=== PATIENT | male | born 1965 | race Hispanic/Latino ===

== ENCOUNTER 2020-01-05 22:58 | Emergency (ER) | payer MEDICARE, OTHER ==
[2020-01-05] MEDS ORDERED: levETIRAcetam 1000 MG/100 ML PREMIX BAG ONE (23:00)
[2020-01-05] MEDS ORDERED: Lorazepam 2 MG/ML VIAL ONE (23:00)
[2020-01-05] MEDS ORDERED: Propofol 1,000 MG/100 ML VIAL IV ONE (23:07)
[2020-01-05] MEDS ORDERED: Succinylcholine Chloride 20 MG/ML 10 ml SYRINGE FS ONE (23:07)
[2020-01-05 23:15] LABS: #Lymphocytes 0.7 thou/uL (1.20-3.40); #Monocytes 1.3 thou/uL (0.11-0.59); #Neutrophils 15.9 thou/uL (1.40-6.50); %Basophils 0.1 % (0.0-1.0); %Eosinophils 0.1 % (0.0-10.0); %Lymphocytes 4.1 % (21.0-51.0); %Neutrophils 88.7 % (42.0-75.0); Hemoglobin 19.8 g/dL (14.0-18.0); Mean Corpuscular HGB CONC 34.6 g/dL (32.0-36.0); Mean Corpuscular Volume 92.3 fL (78.0-98.0); Mean Platelet Volume 7.4 fL (7.4-10.4); Platelet Count 323 thou/uL (130-400); RBC Distribution Width 12.4 % (11.5-14.5); Red Blood Cell (RBC) Count 6.19 mill/uL (4.70-6.10); White Blood Cell (WBC) Count 17.9 thou/uL (4.8-10.8)
[2020-01-05 23:36] LABS: ALT (SGPT) 151 U/L (8-55); AST (SGOT) 345 U/L (5-34); Albumin 5.1 g/dL (3.5-5.0); Alkaline Phosphatase 124 U/L (40-110); Anion Gap 30 mmol/L (10-20); BUN (Urea Nitrogen) 32 mg/dL (8.4-25.7); Bilirubin, Total 1.2 mg/dL (0.2-1.2); Calc. Creatinine Clearance 0 mL/min (70-130); Calcium 10.8 mg/dL (7.8-10.44); Carbon Dioxide 16 mmol/L (22-29); Chloride 99 mmol/L (98-107); Estimated GFR-MDRD 16; Globulin 4.3 g/dL (2.4-3.5); Glucose 94 mg/dL (70-105); Magnesium 2.6 mg/dL (1.6-2.6); Potassium 4.7 mmol/L (3.5-5.1); Protein, Total 9.4 g/dL (6.0-8.3); Sodium 140 mmol/L (136-145)
[2020-01-05 23:59] LABS: Actual Bicarbonate (HCO3a) 16.6 mEq/L (22-28); Analyzer IN Cardio ER; Base Excess (BEa) -7.7 mEq/L (-2.0 to +3.0); CO2 Tension 32.3 mmHg (35.0-45.0); Calcium, Ionized 1.13 mmol/L (1.12-1.30); Carboxyhemoglobin (COHb) 0.2 gm% (0.0-3.0); Hemoglobin (Hb) 19.4 g/dL (14.0-18.0); O2 Tension (PaO2) 74.9 mmHg (80.0-100.0); Potassium - ABG Lab 4.81 mmol/L (3.70-5.30); pH, Arterial 7.33 (7.35-7.45)
[2020-01-06 00:07] LABS: ALV-art Gradient 241.225 (0-20); Puncture Site LRA
[2020-01-06 00:42] LABS: Bacteria/HPF 3+ HPF (None Seen); Bilirubin Negative (Negative); Blood, Urine 3+ (Negative); Clarity Extra Turbid (Clear); Glucose, Urine (Dipstick) Normal (Negative); Leukocyte Negative Leu/uL (Negative); Nitrite Negative (Negative); Protein, Urine (Dipstick) 200 mg/dL (Neg-Trace); Urobilinogen Normal mg/dL (Less than 2); WBC/HPF Greater than 50 HPF (0-3)
[2020-01-06] MEDS ORDERED: cefTRIAXone\\ROCEPHIN 2 GM VIAL ONE (00:50)
[2020-01-06] MEDS ORDERED: Vancomycin 1 GM/200 ML BAG ONE (00:50)
[2020-01-06] MEDS ORDERED: Acetaminophen 650 MG Suppository ONE (00:54)
[2020-01-06] MEDS ORDERED: Fentanyl 100 MCG/2 ML VIAL ONE (01:05)
[2020-01-06 01:35] LABS: CSF Source CSF; Clarity Clear (Clear); Tube # 1; Tube # 4
[2020-01-06 02:09] LABS: Color Of CSF Supernatant COLORLESS (Colorless); Tube # 2; Unspun CSF Color COLORLESS (Colorless)
[2020-01-06 02:24] LABS: CSF, Glucose 71 mg/dl (40-70); CSF, Protein 53 mg/dL (15-40)
--- NOTE | 2020-01-06 06:56 | RAD ---
PORTABLE CHEST: HISTORY: Seizures. COMPARISON: 05/14/2013. FINDINGS: Lung terry appear clear. No infiltrate or vascular congestion. Heart and mediastinum unremarkable. ET tube has tip above dee. An NG Tube is directed into the left mainstem bronchus. IMPRESSION: 1. Nasogastric tube directed into the left mainstem bronchus. 2. No acute lung process. Findings related to Dr. Childress at the time of dictation. CODE CR POS: KATHY
--- NOTE | 2020-01-06 06:59 | CT ---
CT HEAD WITHOUT CONTRAST: INDICATION: Seizures. COMPARISON: Comparison is made to head CT of 05/25/2013. FINDINGS: There is a focal lucency in the left cerebellum which his new from prior exam suggesting a focal cere bellar infarct which appears remote. Mild cortical volume loss. The extraaxial CSF seen on the prior exam is no longer present. There ar e chronic ischemic white matter changes in both cerebral hemispheres which are moderate and prominent for age. There is evidence of old infarct with encephalomalacia involving the left temporal lobe. There is also associated encephalomalacia in the inferior left frontal lobe. There is no evidence of acute mass, hemorrhage, or cortical infarct. Sinuses appear clear. IMPRESSION: There are chronic ischemic changes. 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 Mild ex vacuo dilatation of the left lateral ventricle du e to these old infarcts. No acute process apparent. POS: AGW
--- NOTE | 2020-01-06 07:00 | RAD ---
SUPINE ABDOMEN: INDICATION: Assess NG tube placement. FINDINGS/IMPRESSION: NG tube passes through the EG junction and resides within the gastric fundal region. Nonspecific bow el gas pattern is partially visualized. The lungs appear clear. POS: AGW
[2020-01-06 10:04] LABS: SARS-CoV-2 MS2 Positive; SARS-CoV-2 N Gene Negative; SARS-CoV-2 S Gene Negative; SARS-CoV-2 orf1ab Negative
--- NOTE | 2020-01-07 14:57 | EKG ---
Test Reason : Blood Pressure : / mmHG Vent. Rate : 128 BPM Atrial Rate : 128 BPM P-R Int : 122 ms QRS Dur : 074 ms QT Int : 314 ms P-R-T Axes : 049 022 046 degrees QTc Int : 458 ms Sinus tachycardia No STEMI Otherwise normal ECG Confirmed by MARCO HOOPER M.D. ([id number]), material expeditor YSABEL DYSON ([id number] on 01/07/2020 2:57:03 PM Referred By: Confirmed By:MARCO HOOPER M.D.
== END 2020-01-06 03:32 | disposition short-term general hospital (02) ==
LOC: ERS 22:58
DX: A41.9 Sepsis, unspecified organism (principal); N17.9 Acute kidney failure, unspecified; G40.801 Other epilepsy, not intractable, with status epilepticus; I10 Essential (primary) hypertension; Z20.828 Contact with and (suspected) exposure to other viral communicable diseases; Z87.891 Personal history of nicotine dependence; Z79.899 Other long term (current) drug therapy
CPT/HCPCS: 31500; 51702; 62270; 70450; 71045; 74018; 80053; 82805; 82945; 83605; 83735; 84157; 85025; 87040; 87070; 87077; 87149 ×2; 87186; 87205; 89051; 93005; 94002; 96361; 96365; 96366; 96367; 96375; 99291; 99292; U0002; 36415; 81003; 81015; 87635; J0696; J1953; J2060; J2704; J3010; J3370; U0003

== ENCOUNTER 2020-07-24 06:28 | Inpatient (IN) | payer MEDICARE, MEDICAID ==
[2020-07-24] MEDS ORDERED: Succinylcholine 200 MG/10 ml SYRINGE FS ONE (06:31)
[2020-07-24] MEDS ORDERED: Ketamine 50 MG/ML (10ML VIAL) ONE (06:47)
[2020-07-24] MEDS ORDERED: fentaNYL Citrate/PF 2,000 MCG in Sodium Chloride 0.9% 60 ML IV SCH (07:00)
[2020-07-24] MEDS ORDERED: Fentanyl 100 MCG/2 ML VIAL ONE (07:07)
[2020-07-24] MEDS ORDERED: Norepinephrine 4 MG/4 ML VIAL ONE ×3 (07:26→11:24)
[2020-07-24] MEDS ORDERED: Norepinephrine 8 MG/0.9% NS 250 ML IVPB SCH (07:30)
[2020-07-24] MEDS ORDERED: Vancomycin 1 GM/200 ML BAG ONE (07:34)
[2020-07-24] MEDS ORDERED: Cefepime 2 GM VIAL ONE (07:34)
[2020-07-24 07:39] LABS: #Eosinphils 0.1 thou/uL (0.0-0.7); #Lymphocytes 1.2 thou/uL (1.20-3.40); #Monocytes 1.6 thou/uL (0.11-0.59); #Neutrophils 14.4 thou/uL (1.40-6.50); %Basophils 0.2 % (0.0-1.0); %Eosinophils 0.3 % (0.0-10.0); %Lymphocytes 6.8 % (21.0-51.0); %Monocytes 9.1 % (0.0-10.0); %Neutrophils 83.6 % (42.0-75.0); Hemoglobin 16.5 g/dL (14.0-18.0); Mean Corpuscular HGB CONC 33.2 g/dL (32.0-36.0); Mean Corpuscular Hemoglobin 29.8 pg (27.0-31.0); Mean Corpuscular Volume 89.7 fL (78.0-98.0); Mean Platelet Volume 7.7 fL (7.4-10.4); Platelet Count 201 thou/uL (130-400); Red Blood Cell (RBC) Count 5.55 mill/uL (4.70-6.10); White Blood Cell (WBC) Count 17.2 thou/uL (4.8-10.8)
[2020-07-24 07:46] LABS: Bilirubin Negative (Negative); Blood, Urine Negative (Negative); Clarity Clear (Clear); Glucose, Urine (Dipstick) Normal (Negative); Ketone, Urine Negative (Negative); Leukocyte Negative Leu/uL (Negative); Nitrite Negative (Negative); Protein, Urine (Dipstick) Negative (Neg-Trace); Specific Gravity, Urine 1.011 (1.002-1.036); Urobilinogen Normal mg/dL (Less than 2)
[2020-07-24] MEDS ORDERED: EPINEPHrine 1 MG/ML AMP ONE (07:47)
[2020-07-24] MEDS ORDERED: EPINEPHrine 1 MG/10 ML Abboject SYRINGE ONE (07:47)
[2020-07-24] MEDS ORDERED: Hydrocortisone Sod Succ/PF 100 mg/2 ml Vial ONE (07:52)
[2020-07-24 07:57] LABS: Actual Bicarbonate (HCO3a) 14.4 mEq/L (22-28); Analyzer IN Cardio ER; Base Excess (BEa) -10.6 mEq/L (-2.0 to +3.0); CO2 Tension 30.2 mmHg (35.0-45.0); Carboxyhemoglobin (COHb) 0.3 gm% (0.0-3.0); Hemoglobin (Hb) 15.4 g/dL (14.0-18.0); O2 Tension (PaO2), arterial 83.3 mmHg (80.0-100.0); Potassium - ABG Lab 3.05 mmol/L (3.70-5.30)
--- NOTE | 2020-07-24 07:57 | RAD ---
Exam: Chest one view HISTORY:Central line placed. COVID positive patient. Comparison: 07/24/2020 FINDINGS: Lines and tubes: Redemonstration of endotracheal tube and nasogastric tube. Interval placement of a l eft-sided subclavian vascular catheter. Distal tip projects over the expected region of the superior vena cava. Cardiac silhouette: Normal Aorta: Atherosclerosis Pulmonary vessels: Normal Costophrenic angles: Clear LUNGS: Persistent diminished lung volumes. Persistent bilateral perihilar infiltrates. Pneumothorax: None Osseous abnormalities: Redemonstration of a cervical fusion plate IMPRESSION: 1. Redemonstration of endotracheal tube and nasogastric tube. Endotracheal tube terminates approximat delaney 2 cm above the dee. 2. Interval placement of a left-sided subclavian vascular catheter. No pneumothorax 3. Persistent diminished lung volumes with bilateral perihilar infiltrates
[2020-07-24 07:59] LABS: Puncture Site RRA
[2020-07-24 08:09] LABS: ALT (SGPT) 62 U/L (8-55); AST (SGOT) 289 U/L (5-34); Albumin 4.3 g/dL (3.5-5.0); Alkaline Phosphatase 117 U/L (40-110); Anion Gap 24 mmol/L (10-20); BUN (Urea Nitrogen) 25 mg/dL (8.4-25.7); Bilirubin, Total 0.3 mg/dL (0.2-1.2); Calc. Creatinine Clearance 0 mL/min (70-130); Calcium 8.8 mg/dL (7.8-10.44); Carbon Dioxide 17 mmol/L (22-29); Chloride 98 mmol/L (98-107); Estimated GFR-MDRD 21; Globulin 3.9 g/dL (2.4-3.5); Glucose 90 mg/dL (70-105); Potassium 3.5 mmol/L (3.5-5.1); Protein, Total 8.2 g/dL (6.0-8.3); Sodium 135 mmol/L (136-145)
[2020-07-24] MEDS ORDERED: Electrolyte Replacement Protoc 1 EACH EACH IVPB SCH (08:09)
[2020-07-24] MEDS ORDERED: Norepinephrine 8 MG/0.9% NS 250 ML IVPB PRN (08:09)
[2020-07-24] MEDS ORDERED: Ventilator Sedation Protocol 1 EACH FS SCH (08:15)
[2020-07-24] MEDS: Sodium Chloride 0.9% 1,000 ML IV SCH ×2 (08:30→20:22)
[2020-07-24 08:46] LABS: CKMB 120.8 ng/mL (0-6.6)
[2020-07-24] MEDS ORDERED: Vancomycin 1 GM in Premix Bag 1 BAG IVPB SCH (09:00)
[2020-07-24] MEDS ORDERED: Cefepime 2 GM in Sodium Chloride 0.9% 100 ML IVPB SCH (09:00)
[2020-07-24] MEDS ORDERED: Heparin 10,000 UNITS/ 10 ML VIAL ONE ×2 (09:05→13:27)
--- NOTE | 2020-07-24 09:09 | RAD ---
CHEST 1 VIEW: Date: 07/24/2020 INDICATION: History of COVID-positive disease and intubation. COMPARISON: Prior exam dated 01/05/2020. FINDINGS: The patient is intubated with gastric catheter placement. No acute air space opacity is evident. [place] catheter has been repositioned to extend below the left hemidiaphragm and beyond the field of vie w. ACDF is unchanged. No pneumothorax s evident. IMPRESSION: 1. Repositioning of the gastric catheter. Now, gastric catheter projects below the left hemidiaphrag m and beyond the field of view in the region of the stomach. 2. ET tube tip seen 2.9 cm below the level of the dee. The lungs are clear. POS: BH
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
[2020-07-24] MEDS ORDERED: Propofol BOLUS 1,000 MG/100 ML VIAL IV PRN (09:15)
[2020-07-24] MEDS ORDERED: Propofol 1,000 MG/100 ML VIAL IV PRN (09:15)
[2020-07-24] MEDS ORDERED: Morphine 2 MG/ML VIAL SLOW IVP PRN (09:15)
[2020-07-24] MEDS ORDERED: Vancomycin HCl 1 GM in Sodium Chloride 0.9% 250 ML 250 ML IVPB SCH (09:15)
[2020-07-24] MEDS ORDERED: DISCONTINUE PREVIOUS NARCOTIC PAIN MEDICATIONS AND BENZODIAZEPINES FS SCH (09:15)
[2020-07-24] MEDS ORDERED: Fentanyl BOLUS 250 ML IVPB PRN (09:15)
[2020-07-24] MEDS ORDERED: Heparin 25,000 units/D5W 500 ML IVPB SCH (09:45)
[2020-07-24] MEDS ORDERED: Heparin 10,000 UNITS/ 10 ML VIAL SLOW IVP SCH ×2 (09:45→20:00)
[2020-07-24 10:12] LABS: Hemoglobin 15.6 g/dL (14.0-18.0); Platelet Count 155 thou/uL (130-400)
[2020-07-24 10:39] LABS: Lactic Acid 4.4 mmol/L (0.5-2.2)
[2020-07-24 11:26] LABS: Hep C IgG Ab Reflex HepC Qnt (NonReactive); Hep C Index 11.03 S/CO (0-0.79)
--- NOTE | 2020-07-24 11:55 | PDOC.EVN ---
Event Note - Event Note Event Note: Confirmed that the patient tested positive for Covid at the [facility] on Sunday, 5 days ago.
--- NOTE | 2020-07-24 12:00 | ULT ---
EXAM: Bilateral lower extremity venous ultrasound HISTORY: Elevated d-dimer. Respiratory failure. COVID positive patient. COMPARISON: 05/09/2013 TECHNIQUE: Multiplanar grayscale and color Doppler images were obtained in a bilateral lower extremit y venous ultrasound. Spectral analysis of the Doppler waveforms were performed. FINDINGS: The bilateral common femoral vein, profunda femoral veins, superficial femoral veins, and p opliteal veins are normal in appearance without visible thrombus. These vessels demonstrate normal compression, flow, and augmentation. The bilateral posterior tibial veins, profunda femoral veins and greater saphenous veins are patent w ithout evidence of DVT. IMPRESSION: No evidence of DVT in the left or right lower extremity.
[2020-07-24] MEDS ORDERED: Famotidine/PF 20 mg/2ml Vial ONE (13:21)
[2020-07-24] MEDS ORDERED: Heparin 25,000 units/D5W 500 ML ONE (13:27)
[2020-07-24] MEDS: Famotidine/PF 20 mg/2ml Vial SLOW IVP SCH (13:58)
[2020-07-24] MEDS: Norepinephrine 8 MG in Dextrose 5% in Water 242 ML IVPB PRN (17:58)
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
[2020-07-24] MEDS ORDERED: Heparin 25,000 units/D5W 500 ML IV SCH (20:00)
[2020-07-24] MEDS ORDERED: Cefepime 1 GM in Sodium Chloride 0.9% 100 ML IVPB SCH (21:00)
[2020-07-24 21:23] LABS: PTT Greater than 250.0 sec (22.9-36.1)
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
[2020-07-25 00:55] LABS: PTT 243.4 sec (22.9-36.1)
[2020-07-25] MEDS: Norepinephrine 8 MG in Dextrose 5% in Water 242 ML IVPB PRN ×2 (01:24→07:02)
[2020-07-25 03:44] LABS: PTT 118.4 sec (22.9-36.1)
[2020-07-25 03:47] LABS: Hemoglobin 15.8 g/dL (14.0-18.0); Mean Corpuscular HGB CONC 33.9 g/dL (32.0-36.0); Mean Corpuscular Hemoglobin 30.6 pg (27.0-31.0); Mean Corpuscular Volume 90.3 fL (78.0-98.0); Mean Platelet Volume 8.2 fL (7.4-10.4); Platelet Count 79 thou/uL (130-400); RBC Distribution Width 12.2 % (11.5-14.5); Red Blood Cell (RBC) Count 5.18 mill/uL (4.70-6.10); White Blood Cell (WBC) Count 10.8 thou/uL (4.8-10.8)
[2020-07-25 03:48] LABS: Band 33 % (5-11); Lymphocytes 10 % (21-51); MDiff Complete? YES; Monocytes 1 % (0-10); Neutrophil 56 % (42-75); Platelet Morphology Comment Appears Decreased
[2020-07-25 04:16] LABS: ALT (SGPT) 1326 U/L (8-55); AST (SGOT) 1542 U/L (5-34); Albumin 3.5 g/dL (3.5-5.0); Alkaline Phosphatase 106 U/L (40-110); Anion Gap 20 mmol/L (10-20); BUN (Urea Nitrogen) 31 mg/dL (8.4-25.7); Bilirubin, Total 1.1 mg/dL (0.2-1.2); Calc. Creatinine Clearance 57 mL/min (70-130); Calcium 7.4 mg/dL (7.8-10.44); Carbon Dioxide 19 mmol/L (22-29); Chloride 101 mmol/L (98-107); Estimated GFR-MDRD 46; Globulin 2.9 g/dL (2.4-3.5); Glucose 119 mg/dL (70-105); Potassium 3.3 mmol/L (3.5-5.1); Protein, Total 6.4 g/dL (6.0-8.3); Sodium 137 mmol/L (136-145)
[2020-07-25] MEDS: Sodium Chloride 0.9% 1,000 ML IV SCH (07:02)
[2020-07-25] MEDS ORDERED: FLU VACC QS2020-21(6MOS UP)/PF 60 MCG/0.5 ML SYRINGE IM ONE (09:00)
[2020-07-25] MEDS: Famotidine/PF 20 mg/2ml Vial SLOW IVP SCH (09:13)
[2020-07-25 11:02] LABS: PTT 159.1 sec (22.9-36.1)
--- NOTE | 2020-07-25 11:36 | PRG ---
DATE OF SERVICE: 07/25/2020 SUBJECTIVE: He continues to be on low-dose fentanyl for sedation and restlessness. Ventilator settings at this time include rate of 14, tidal volume 500, PEEP of 8, FiO2 of 50%. PHYSICAL EXAMINATION: VITAL SIGNS: Blood pressure 124/76, heart rate 75, saturation 100%, temperature 99.0. GENERAL: He is intubated and sedated. He does not respond to verbal stimuli. He has no JVD. LUNGS: Rhonchi. HEART: Regular rate and rhythm. There is no murmur. ABDOMEN: Soft. There is no organomegaly. EXTREMITIES: He has trace edema. LABORATORY AND DIAGNOSTIC DATA: There is no x-ray today. White count 10,500, down from 17,000 on admission, hemoglobin 15.8 with hematocrit of 46.8, and platelet count down to 79,000. It was 201 on admission. Differential includes 56 segs and 33 bands. He remains anticoagulated. Chemistries include sodium 137, potassium 3.3, chloride 101, CO2 is 19, BUN 31, creatinine 1.56, down from 3 upon admission. ALT and AST are both greater than 1300, have been only mildly elevated yesterday. This is probably secondary to passive congestion related to infection versus post NE. IMPRESSION: 1. Elevated troponin and CK-MB consistent with [id number] NE. He is on heparin protocol, but unfortunately developing thrombocytopenia discontinuation of that approach. 2. COVID pneumonia, receiving ventilatory support. PLAN: We will continue current therapies. Course is challenging because of his progressive elevation in liver tests, which are probably secondary to his NE and passive congestion. He is not tolerating heparin well with evolving thrombocytopenia and of course, this is all superimposed upon his chronic issues and then also upon acute COVID pneumonia. I am not optimistic that he is going to survive. At this point, we will continue current therapies, but highly suspect we will need to discontinue heparin. TIME SPENT: Critical care, 31 minutes. Job ID: [id number]
[2020-07-25] MEDS: Vancomycin HCl 1.25 GM in Sodium Chloride 0.9% 250 ML 250 ML IVPB SCH (12:24)
--- NOTE | 2020-07-25 14:15 | PDOC.CPN ---
- Subjective Date: 07/25/20 Time: 14:13 Interval history: Pt intubated, sedated. Notes reviewed on events over last 12 hours - Objective Allergies/Adverse Reactions: Allergies Allergy/AdvReac Type Severity Reaction Status Date / Time No Known Drug Allergies Allergy Unknown Verified 11/29/19 09:07 Visit Medications: Current Medications Famotidine (Famotidine/Pf 20 Mg/2ml Vial) 20 mg SLOW IVP DAILY ELYSE Last Admin: 07/25/20 09:13 Dose: 20 mg Documented by: Heparin Sodium (Porcine) (Heparin 10,000 Units/ 10 Ml Vial) 0 units SLOW IVP WILLCALL ELYSE Sodium Chloride (Normal Saline 0.9%) 1,000 mls @ 75 mls/hr IV .[id number] ELYSE Last Admin: 07/25/20 07:02 Dose: 1,000 mls Documented by: Fentanyl Citrate 2,000 mcg/ (Sodium Chloride) 100 mls @ 0 mls/hr IV INF ELYSE; Protocol Stop: 08/23/20 09:15 Fentanyl Citrate (Fentanyl Bolus) 250 mls @ 0 mls/hr IVPB PRN PRN PRN Reason: Breakthrough pain/agitation Stop: 08/23/20 09:15 Cefepime HCl 1 gm/ Sodium (Chloride) 100 mls @ 200 mls/hr IVPB .PENDING PT INFO/NEXT LABS ELYSE Norepinephrine Bitartrate 8 mg (/ Dextrose/Water) 250 mls @ 0 mls/hr IVPB INF PRN; Protocol PRN Reason: TO MAINTAIN MAP > 65 Last Admin: 07/25/20 07:02 Dose: 250 mls Documented by: Heparin Sodium/Dextrose (Heparin 25,000 Units/D5w) 500 mls @ 0 mls/hr IV INF ELYSE; Protocol Vasopressin 20 unit/Miscellaneous Medication 1 each/ Sodium Chloride 51 mls @ 0 mls/hr IV INF ELYSE; Protocol Last Admin: 07/25/20 05:56 Dose: 51 mls Documented by: Vancomycin HCl 1.25 gm/ Sodium (Chloride) 250 mls @ 166.667 mls/hr IVPB 1200 ELYSE Last Admin: 07/25/20 12:24 Dose: 250 mls Documented by: Lorazepam (Lorazepam 2 Mg/Ml Vial) 2 mg SLOW IVP Q1H PRN PRN Reason: Breakthrough agitation Stop: 08/23/20 09:15 Miscellaneous Medication (Pharmacy To Dose Vanc/Cefep) 1 each IVPB .VANC/CEFEP PRN PRN Reason: Pharmacy to dose Morphine Sulfate (Morphine 2 Mg/Ml Vial) 2 mg SLOW IVP Q1H PRN PRN Reason: Breakthrough Pain/Agitation Stop: 08/23/20 09:15 Discontinue Previous Narcotic Pain Medications And Benzodiazepines 1 each FS .ONE ELYSE Stop: 08/23/20 09:15 Propofol (Propofol 1,000 Mg/100 Ml Vial) 1,000 mg IV INF PRN; Protocol PRN Reason: TO ACHIEVE GOAL RASS Stop: 08/23/20 09:15 Propofol (Propofol Bolus 1,000 Mg/100 Ml Vial) 20 mg IV Q5MIN PRN PRN Reason: BREAKTHROUGH AGITATION Stop: 08/23/20 09:15 Sodium Chloride (Flush - Normal Saline 10 Ml Syringe) 10 ml IVF Q12HR ELYSE Last Admin: 07/25/20 09:13 Dose: 10 ml Documented by: Sodium Chloride (Flush - Normal Saline 10 Ml Syringe) 10 ml IVF PRN PRN PRN Reason: Saline Flush Vital Signs & Weight: Vital Signs Temp Pulse Resp BP Pulse Ox 07/25/20 14:00 17 07/25/20 12:00 99.1 F 17 07/25/20 10:36 74 07/25/20 10:00 17 07/25/20 08:00 18 07/25/20 07:55 70 07/25/20 07:05 100 07/25/20 06:00 19 07/25/20 04:00 19 07/25/20 03:42 66 118/76 Weight 170 lb 13.732 oz - Physical Exam General: other (PE deferred d/t covid (+)) - Labs Result Diagrams: 07/25/20 03:10 07/25/20 03:10 Troponin/CKMB CK-MB (CK-2) 120.8 ng/mL (0-6.6) H* 07/24/20 07:25 Troponin I 6.249 ng/mL (< 0.028) H* 07/24/20 07:25 - Assessment/Plan Assessment/Plan: NQWMI Cocvid (+) pneumonia CHI Platelet count dropped significantly over last 24 hours Agree with stopping heparin Unfortunately, based on covid (+), platelet count, CKMB and trop and liver ezymes his recent cardiac insult likely significant Prognosis appears poor overall Continue supportive care
--- NOTE | 2020-07-25 14:29 | PDOC.HOSPP ---
- Subjective Encounter Date: 07/25/20 Encounter Time: 08:00 Subjective: on vent, mild sedation awakens off sedation per staff - Objective Vital Signs & Weight: Vital Signs (12 hours) Temp Pulse Resp BP Pulse Ox 07/25/20 14:00 17 07/25/20 12:00 99.1 F 17 07/25/20 10:36 74 07/25/20 10:00 17 07/25/20 08:00 18 07/25/20 07:55 70 07/25/20 07:05 100 07/25/20 06:00 19 07/25/20 04:00 19 07/25/20 03:42 66 118/76 Weight Weight 170 lb 13.732 oz Most Recent Monitor Data Heart Rate from ECG 78 NIBP 120/73 NIBP BP-Mean 88 Respiration from ECG 18 SpO2 100 I&O: 07/24/20 07/25/20 07/26/20 06:59 06:59 06:59 Intake Total 2076.4 0 Output Total 5425 685 Balance -378.6 -685 Result Diagrams: 07/25/20 03:10 07/25/20 03:10 Hospitalist ROS - Medication Medications: Active Medications Generic Name Dose Route Start Last Admin Trade Name Freq PRN Reason Stop Dose Admin Famotidine 20 mg 07/24/20 09:00 07/25/20 09:13 Famotidine/Pf 20 Mg/2ml Vial SLOW IVP 20 mg DAILY ELYSE Administration Sodium Chloride 1,000 mls @ 75 mls/hr 07/24/20 08:15 07/25/20 07:02 Normal Saline 0.9% IV 1,000 mls .[id number] ELYSE Administration Norepinephrine Bitartrate 8 mg 250 mls @ 0 mls/hr 07/24/20 17:30 07/25/20 07:02 / Dextrose/Water IVPB 250 mls INF PRN Administration TO MAINTAIN MAP > 65 Protocol As Directed Vasopressin 20 unit/ 51 mls @ 0 mls/hr 07/24/20 18:00 07/25/20 05:56 Miscellaneous Medication 1 IV 51 mls each/ Sodium Chloride INF ELYSE Administration Protocol As Directed Vancomycin HCl 1.25 gm/ Sodium 250 mls @ 166.667 mls/hr 07/25/20 12:00 07/25/20 12:24 Chloride IVPB 250 mls 1200 ELYSE Administration Sodium Chloride 10 ml 07/24/20 21:00 07/25/20 09:13 Flush - Normal Saline 10 Ml Syringe IVF 10 ml Q12HR ELYSE Administration - Exam ENT: normocephalic atraumatic Neck: supple Heart: RRR Respiratory: normal chest expansion Gastrointestinal: non-distended Extremities: no cyanosis, no edema Neurological: cranial nerve grossly intact Hosp A/P (1) Acute respiratory failure with hypoxia Code(s): J96.01 - ACUTE RESPIRATORY FAILURE WITH HYPOXIA Status: Acute (2) NSTEMI (non-ST elevated myocardial infarction) Code(s): I21.4 - NON-ST ELEVATION (NSTEMI) MYOCARDIAL INFARCTION Status: Acute (3) COVID-19 virus infection Code(s): U07.1 - COVID-19 Status: Acute (4) Elevated LFTs Code(s): R79.89 - OTHER SPECIFIED ABNORMAL FINDINGS OF BLOOD CHEMISTRY Status: Acute (5) MINA (acute kidney injury) Code(s): N17.9 - ACUTE KIDNEY FAILURE, UNSPECIFIED Status: Acute (6) History of traumatic brain injury Code(s): Z87.820 - PERSONAL HISTORY OF TRAUMATIC BRAIN INJURY Status: Chronic (7) Hyperlipidemia Code(s): E78.5 - HYPERLIPIDEMIA, UNSPECIFIED Status: Chronic (8) Hypertension Code(s): I10 - ESSENTIAL (PRIMARY) HYPERTENSION Status: Chronic Qualifiers: Hypertension type: essential hypertension Qualified Code(s): I10 - Essential (primary) hypertension (9) Septic shock Code(s): A41.9 - SEPSIS, UNSPECIFIED ORGANISM; R65.21 - SEVERE SEPSIS WITH SEPTIC SHOCK Status: Suspected - Plan is on pressors (levophed and vasopressin), sbp around 110 cefepime, vanc, nebs will need echo for ef, ?cardiogenic shock in addition to sepsis d/w sister and POA over phone, she is aware of poor prognosis and the current treatment plan including lab work. off heparin drip due to progressive thrombocytopenia likely might have hep C, await full results not a candidate for remdesivir with grossly elevated lft's
[2020-07-25] MEDS: Lorazepam 2 MG/ML VIAL SLOW IVP PRN (16:28)
[2020-07-25] MEDS: fentaNYL Citrate/PF 2,000 MCG in Sodium Chloride 0.9% 60 ML IV SCH (16:37)
[2020-07-25] MEDS: Acetaminophen 325 MG TAB PO PRN (23:50)
[2020-07-26] MEDS: Sodium Chloride 0.9% 1,000 ML IV SCH ×2 (01:15→14:50)
[2020-07-26 04:22] LABS: Anion Gap 12 mmol/L (10-20); BUN (Urea Nitrogen) 33 mg/dL (8.4-25.7); Calc. Creatinine Clearance 66 mL/min (70-130); Calcium 7.8 mg/dL (7.8-10.44); Carbon Dioxide 25 mmol/L (22-29); Chloride 102 mmol/L (98-107); Estimated GFR-MDRD 54; Glucose 115 mg/dL (70-105); Potassium 3.9 mmol/L (3.5-5.1); Sodium 135 mmol/L (136-145)
[2020-07-26 04:44] LABS: Band 42 % (5-11); Hemoglobin 14.8 g/dL (14.0-18.0); Lymphocytes 3 % (21-51); MDiff Complete? YES; Mean Corpuscular HGB CONC 33.5 g/dL (32.0-36.0); Mean Corpuscular Hemoglobin 29.9 pg (27.0-31.0); Mean Corpuscular Volume 89.4 fL (78.0-98.0); Mean Platelet Volume 8.6 fL (7.4-10.4); Monocytes 1 % (0-10); Neutrophil 54 % (42-75); Platelet Count 71 thou/uL (130-400); Platelet Morphology Comment Appears Decreased; RBC Distribution Width 12.2 % (11.5-14.5); RBC Morphology Normal; Red Blood Cell (RBC) Count 4.94 mill/uL (4.70-6.10); White Blood Cell (WBC) Count 7.7 thou/uL (4.8-10.8)
[2020-07-26] MEDS: Acetaminophen 325 MG TAB PO PRN ×2 (05:44→11:26)
--- NOTE | 2020-07-26 08:08 | RAD ---
XR Chest 1 View Portable History: Ventilated patient Comparison: Radiograph 2 days prior Findings: Endotracheal tube tip in good position above the dee 3.2 cm. Left subclavian central heidi ous catheter tip projects over the inferior SVC. Enteric tube tip below diaphragm although out of field of view. Scarring atelectasis left lung base similar. Similar appearance right perihilar atelectasis. No pneum othorax. Impression: Similar examination of the chest without worsening lung aeration.
[2020-07-26 08:14] LABS: Albumin 3.4 g/dL (3.5-5.0); Alkaline Phosphatase 113 U/L (40-110); Bilirubin, Total 1.6 mg/dL (0.2-1.2); Protein, Total 6.2 g/dL (6.0-8.3)
[2020-07-26 08:27] LABS: ALT (SGPT) 6442 U/L (8-55)
[2020-07-26] MEDS: Cefepime 1 GM in Sodium Chloride 0.9% 100 ML IVPB SCH ×2 (08:32→20:43)
[2020-07-26] MEDS: Famotidine/PF 20 mg/2ml Vial SLOW IVP SCH (08:32)
[2020-07-26 09:17] LABS: AST (SGOT) Greater than 3500 U/L (5-34)
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
[2020-07-26] MEDS: Vancomycin HCl 1.25 GM in Sodium Chloride 0.9% 250 ML 250 ML IVPB SCH (11:20)
[2020-07-26] MEDS: methylPREDNISolone Sod Succ 40 MG VIAL IVP SCH ×2 (11:20→17:34)
--- NOTE | 2020-07-26 12:09 | ULT ---
Ultrasound of [facility] [place] upper quadrant: 07/26/2020 COMPARISON:None available HISTORY:Elevated liver function enzymes TECHNIQUE: Multiplanar grayscale sonographic imaging of [facility] [place] upper quadrant provided FINDINGS:The pancreas appears grossly unremarkable. Distal body and tail are partially obscured by corazon wel gas. No focal liver lesion is identified. The hepatic parenchyma is somewhat heterogeneous and echogenic, which may signify hepatic steatosis. The common bile duct measures 5 mm, within normal limits. No gallbladder wall thickening is seen. Small volume gallbladder sludge is suspected. No gallstones o r pericholecystic fluid. The right kidney measures 10.9 cm in craniocaudal dimension and demonstrates no evidence for stone, h ydronephrosis, or mass lesion. IMPRESSION:Gallbladder sludge. No gallstones, gallbladder wall thickening, or intrahepatic biliary di latation.
--- NOTE | 2020-07-26 13:12 | PRG ---
DATE OF SERVICE: 07/26/2020 SUBJECTIVE: No significant changes noted overnight. OBJECTIVE: VITAL SIGNS: 170/71, pulse 102, respirations 20. He is currently on norepinephrine in addition to vasopressin. Physical exam deferred due to COVID positive. PERTINENT LABORATORY DATA: Hemoglobin 14.8, hematocrit 44.2, creatinine 1.36, down from 1.56. AST, ALT of greater than 3500 and 6442. IMPRESSION: 1. COVID positive pneumonia. 2. Elevated CK-MB and troponin. 3. Respiratory failure. RECOMMENDATIONS: No significant changes noted overnight. Unfortunately, his AST, ALT continues to climb. This may be a reflection of RV or LV failure. At this point, proceeding with echo will not change current management. Continue with antibiotic therapy in addition to heparin as well as a Solu-Medrol. Continue on norepinephrine and vasopressin for pressor support. Prognosis appears poor. At this point, I have no further recommendations to add. The patient will re-consult if needed. We will follow peripherally. Job ID: [id number]
[2020-07-26 13:37] LABS: Hep C PCR-Quant 4170 IU/mL (.)
--- NOTE | 2020-07-26 14:35 | PDOC.HOSPP ---
- Subjective Encounter Date: 07/26/20 Encounter Time: 10:25 Subjective: on vent, wakes up off sedation per staff - Objective Vital Signs & Weight: Vital Signs (12 hours) Temp Pulse Resp BP Pulse Ox 07/26/20 14:00 16 07/26/20 12:00 16 07/26/20 11:26 101.4 F H 07/26/20 10:25 107 H 128/81 07/26/20 10:00 20 07/26/20 08:39 89 136/72 07/26/20 08:00 18 07/26/20 07:17 99 07/26/20 06:00 17 07/26/20 05:44 101.1 F H 07/26/20 04:00 20 07/26/20 03:08 95 Weight Admit Weight 186 lb Weight 186 lb 4.65 oz Most Recent Monitor Data Heart Rate from ECG 89 NIBP 116/73 NIBP BP-Mean 87 Respiration from ECG 19 SpO2 98 I&O: 07/25/20 07/26/20 07/27/20 06:59 06:59 06:59 Intake Total 2076.4 2514.0 0 Output Total 2455 2525 420 Balance -378.6 -11.0 -420 Result Diagrams: 07/26/20 03:40 07/26/20 03:40 Hospitalist ROS - Medication Medications: Active Medications Generic Name Dose Route Start Last Admin Trade Name Freq PRN Reason Stop Dose Admin Acetaminophen 650 mg 07/25/20 22:27 07/26/20 11:26 Acetaminophen 325 Mg Tab PO 650 mg Q6H PRN Administration Fever/Mild Pain Famotidine 20 mg 07/24/20 09:00 07/26/20 08:32 Famotidine/Pf 20 Mg/2ml Vial SLOW IVP 20 mg DAILY ELYSE Administration Sodium Chloride 1,000 mls @ 75 mls/hr 07/24/20 08:15 07/26/20 01:15 Normal Saline 0.9% IV 1,000 mls .[id number] ELYSE Administration Fentanyl Citrate 2,000 mcg/ 100 mls @ 0 mls/hr 07/24/20 09:15 07/25/20 16:37 Sodium Chloride IV 08/23/20 09:15 100 mls INF ELYSE Administration Protocol Per Protocol Norepinephrine Bitartrate 8 mg 250 mls @ 0 mls/hr 07/24/20 17:30 07/25/20 07:02 / Dextrose/Water IVPB 250 mls INF PRN Administration TO MAINTAIN MAP > 65 Protocol As Directed Vasopressin 20 unit/ 51 mls @ 0 mls/hr 07/24/20 18:00 07/26/20 03:40 Miscellaneous Medication 1 IV 51 mls each/ Sodium Chloride INF ELYSE Administration Protocol As Directed Vancomycin HCl 1.25 gm/ Sodium 250 mls @ 166.667 mls/hr 07/25/20 12:00 07/26/20 11:20 Chloride IVPB 250 mls 1200 ELYSE Administration Cefepime HCl 1 gm/ Sodium 100 mls @ 200 mls/hr 07/26/20 09:00 07/26/20 08:32 Chloride IVPB 100 mls Q12HR ELYSE Administration Lorazepam 2 mg 07/24/20 09:15 07/25/20 16:28 Lorazepam 2 Mg/Ml Vial SLOW IVP 08/23/20 09:15 2 mg Q1H PRN Administration Breakthrough agitation Methylprednisolone Sodium Succinate 40 mg 07/26/20 12:00 07/26/20 11:20 Methylprednisolone Sod Succ 40 Mg Vial IVP 40 mg Q6HR ELYSE Administration Sodium Chloride 10 ml 07/24/20 21:00 07/26/20 08:37 Flush - Normal Saline 10 Ml Syringe IVF 10 ml Q12HR ELYSE Administration - Exam ENT: normocephalic atraumatic Neck: supple, no JVD Heart: RRR Respiratory: normal chest expansion Gastrointestinal: non-distended Extremities: no cyanosis, no edema Hosp A/P (1) Acute respiratory failure with hypoxia Code(s): J96.01 - ACUTE RESPIRATORY FAILURE WITH HYPOXIA Status: Acute (2) NSTEMI (non-ST elevated myocardial infarction) Code(s): I21.4 - NON-ST ELEVATION (NSTEMI) MYOCARDIAL INFARCTION Status: Acute (3) COVID-19 virus infection Code(s): U07.1 - COVID-19 Status: Acute (4) Elevated LFTs Code(s): R79.89 - OTHER SPECIFIED ABNORMAL FINDINGS OF BLOOD CHEMISTRY Status: Acute (5) MINA (acute kidney injury) Code(s): N17.9 - ACUTE KIDNEY FAILURE, UNSPECIFIED Status: Acute (6) History of traumatic brain injury Code(s): Z87.820 - PERSONAL HISTORY OF TRAUMATIC BRAIN INJURY Status: Chronic (7) Hyperlipidemia Code(s): E78.5 - HYPERLIPIDEMIA, UNSPECIFIED Status: Chronic (8) Hypertension Code(s): I10 - ESSENTIAL (PRIMARY) HYPERTENSION Status: Chronic Qualifiers: Hypertension type: essential hypertension Qualified Code(s): I10 - Essential (primary) hypertension (9) Septic shock Code(s): A41.9 - SEPSIS, UNSPECIFIED ORGANISM; R65.21 - SEVERE SEPSIS WITH SEPTIC SHOCK Status: Suspected - Plan is on pressors (levophed and vasopressin), sbp around 110, has slow tapering of pressors from this am. cefepime, vanc, nebs will need echo for ef, ?cardiogenic shock in addition to sepsis d/w sister and POA over phone, she is aware of poor prognosis and the current treatment plan including lab work (07/25, 07/26). off heparin drip due to progressive thrombocytopenia Hep C is +ve, unlikely to cause this high elevation in LFT's, will consult in home sales consultant for GI opinion. not a candidate for remdesivir with grossly elevated lft's
[2020-07-26 16:49] LABS: INR-International Normal Ratio 1.6; Prothrombin Time 19.6 sec (12.0-14.7)
[2020-07-26 17:00] LABS: Iron 74 ug/dL (65-175); Iron Binding Capacity, Total 159 mcg/dL (261-462)
[2020-07-26 17:41] LABS: Hep A IgM AB Non-Reactive (NonReactive); Hep B Surf Ag Non-Reactive S/CO (NonReactive); Hepatitis B Core IgM Abs Non-Reactive (NonReactive)
[2020-07-26 18:00] LABS: Ferritin 22753.01 ng/mL (22-322)
[2020-07-26 18:01] LABS: HBSAg Index 0.21 S/CO (0-0.99)
[2020-07-26 18:06] LABS: Hep A IgM S/CO 0.51 S/CO (0-0.79)
[2020-07-26 18:10] LABS: HBCM Index 0.05 S/CO (0-0.79)
[2020-07-26] MEDS: Mometasone 200 MCG/Formoterol 5 MCG 120 PUFF INHALER INH SCH (18:47)
[2020-07-26] MEDS ORDERED: Norepinephrine 8 MG in Dextrose 5% in Water 242 ML IVPB PRN (19:45)
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
[2020-07-27] MEDS: methylPREDNISolone Sod Succ 40 MG VIAL IVP SCH ×5 (00:51→23:38)
[2020-07-27] MEDS: Sodium Chloride 0.9% 1,000 ML IV SCH ×2 (03:48→15:21)
[2020-07-27 04:53] LABS: INR-International Normal Ratio 1.3; Prothrombin Time 16.9 sec (12.0-14.7)
[2020-07-27] MEDS: fentaNYL Citrate/PF 2,000 MCG in Sodium Chloride 0.9% 60 ML IV SCH (05:00)
[2020-07-27 05:13] LABS: Hep B Surface AG-Rflx Sendout Negative (Negative); Hepatitis B Core Total Negative (Negative); Hepatitis B Surface AB-Sendout Non Reactive (.)
[2020-07-27 05:17] LABS: #Lymphocytes 0.3 thou/uL (1.20-3.40); #Monocytes 0.4 thou/uL (0.11-0.59); #Neutrophils 7.3 thou/uL (1.40-6.50); %Basophils 0.1 % (0.0-1.0); %Lymphocytes 3.3 % (21.0-51.0); %Monocytes 4.9 % (0.0-10.0); %Neutrophils 91.7 % (42.0-75.0); Hemoglobin 11.8 g/dL (14.0-18.0); Mean Corpuscular HGB CONC 33.9 g/dL (32.0-36.0); Mean Corpuscular Hemoglobin 30.7 pg (27.0-31.0); Mean Corpuscular Volume 90.4 fL (78.0-98.0); Mean Platelet Volume 8.1 fL (7.4-10.4); Platelet Count 122 thou/uL (130-400); Red Blood Cell (RBC) Count 3.84 mill/uL (4.70-6.10); White Blood Cell (WBC) Count 7.9 thou/uL (4.8-10.8)
[2020-07-27 05:23] LABS: AST (SGOT) 1730 U/L (5-34); AST (SGOT) 1768 U/L (5-34); Albumin 3.3 g/dL (3.5-5.0); Albumin 3.4 g/dL (3.5-5.0); Alkaline Phosphatase 97 U/L (40-110); Alkaline Phosphatase 99 U/L (40-110); Anion Gap 12 mmol/L (10-20); BUN (Urea Nitrogen) 30 mg/dL (8.4-25.7); Bilirubin, Direct 0.9 mg/dL (0.1-0.3); Bilirubin, Total 1.3 mg/dL (0.2-1.2); Bilirubin, Total 1.4 mg/dL (0.2-1.2); Calc. Creatinine Clearance 84 mL/min (70-130); Carbon Dioxide 28 mmol/L (22-29); Chloride 103 mmol/L (98-107); Estimated GFR-MDRD 65; Globulin 2.7 g/dL (2.4-3.5); Glucose 132 mg/dL (70-105); Potassium 3.9 mmol/L (3.5-5.1); Protein, Total 6.1 g/dL (6.0-8.3); Sodium 139 mmol/L (136-145)
[2020-07-27 05:36] LABS: ALT (SGPT) 4152 U/L (8-55); ALT (SGPT) 4205 U/L (8-55)
[2020-07-27] MEDS: Mometasone 200 MCG/Formoterol 5 MCG 120 PUFF INHALER INH SCH ×2 (07:40→18:27)
--- NOTE | 2020-07-27 08:11 | RAD ---
CHEST 1 VIEW: INDICATION: History of intubation. COMPARISON: Prior exam dated 07/16/2020. FINDINGS: There is worsening airspace disease of the left upper lobe and left lower lobe. ET tube, left subcla vian central venous catheter, and gastric catheter are unchanged. Mild subsegmental atelectasis akin ins within the right lower lobe. No pneumothorax is evident. IMPRESSION: Worsening left lung pneumonia. POS: BH
[2020-07-27 08:15] LABS: Actual Bicarbonate (HCO3a) 26.7 mEq/L (22-28); Analyzer IN Cardio ER; Base Excess (BEa) 2.4 mEq/L (-2.0 to +3.0); CO2 Tension 40.2 mmHg (35.0-45.0); Carboxyhemoglobin (COHb) 0.4 gm% (0.0-3.0); Hemoglobin (Hb) 15.5 g/dL (14.0-18.0); O2 Tension (PaO2), arterial 71.3 mmHg (80.0-100.0); Potassium - ABG Lab 3.88 mmol/L (3.70-5.30); pH, Arterial 7.44 (7.35-7.45)
[2020-07-27 08:20] LABS: Puncture Site LRA
[2020-07-27] MEDS: Famotidine 20 MG TAB PO SCH ×2 (08:32→19:32)
[2020-07-27] MEDS: Cefepime 1 GM in Sodium Chloride 0.9% 100 ML IVPB SCH ×2 (08:32→19:32)
--- NOTE | 2020-07-27 09:06 | PRG ---
DATE OF SERVICE: 07/27/2020 SUBJECTIVE: This morning, on the vent. He is off sedation. We got him on CPAP. OBJECTIVE: VITAL SIGNS: Pulse 92, blood pressure , sats are 96% on a CPAP, and respiratory rate 18. CHEST: Decreased breath sounds. No wheezing. CARDIAC: Normal S1 and S2. No gallops. ABDOMEN: Soft. LABORATORY DATA: Shows chest x-ray, left-sided infiltrate. White count 7000, hemoglobin and hematocrit 11 and 34, platelet count 122. PO2 of 71, pCO2 of 40, pH 7.44, 40%. PEEP of 8. Lytes are normal. Liver function shows his AST has decreased to 1768, ALT is down to 4152. ASSESSMENT: 1. Respiratory failure, garcia positive pneumonia. 2. Left-sided pneumonia. 3. Abnormal liver function. 4. Traumatic brain injury, previous PEG and trach. 5. Hold sedation. We may consider weaning and extubation. He appears to be more responsive. 6. In the meantime, continue antibiotics. Continue steroids. 7. Cultures are negative. We may consider discontinuing the vancomycin. One-half hour of critical time. Job ID: [id number]
[2020-07-27] MEDS: Vancomycin 1.5 GRAM/300 ML BAG 1.5 GM in Premix Bag 1 BAG IVPB SCH ×2 (11:58→23:37)
--- NOTE | 2020-07-27 14:00 | PDOC.HOSPP ---
- Subjective Encounter Date: 07/27/20 Encounter Time: 09:45 Subjective: on vent, is weaning per staff is awake, follows some verbal stimuli - Objective Vital Signs & Weight: Vital Signs (12 hours) Pulse Resp BP Pulse Ox 07/27/20 12:00 94 L 07/27/20 10:00 20 07/27/20 08:00 18 07/27/20 07:40 91 144/124 H 07/27/20 07:20 96 07/27/20 06:00 17 07/27/20 04:00 13 07/27/20 03:01 90 07/27/20 02:00 14 Weight Admit Weight 186 lb Weight 188 lb 4.396 oz Most Recent Monitor Data Heart Rate from ECG 121 NIBP 146/109 NIBP BP-Mean 121 Respiration from ECG 35 SpO2 94 I&O: 07/26/20 07/27/20 07/28/20 06:59 06:59 06:59 Intake Total 2514.0 2237.4 0 Output Total 2525 2180 525 Balance -11.0 57.4 -525 Result Diagrams: 07/27/20 04:25 07/27/20 04:25 Hospitalist ROS - Medication Medications: Active Medications Generic Name Dose Route Start Last Admin Trade Name Freq PRN Reason Stop Dose Admin Famotidine 20 mg 07/27/20 09:00 07/27/20 08:32 Famotidine 20 Mg Tab PO 20 mg BID ELYSE Administration Sodium Chloride 1,000 mls @ 75 mls/hr 07/24/20 08:15 07/27/20 03:48 Normal Saline 0.9% IV 1,000 mls .[id number] ELYSE Administration Fentanyl Citrate 2,000 mcg/ 100 mls @ 0 mls/hr 07/24/20 09:15 07/27/20 05:00 Sodium Chloride IV 08/23/20 09:15 100 mls INF ELYSE Administration Protocol Per Protocol Norepinephrine Bitartrate 8 mg 250 mls @ 0 mls/hr 07/24/20 17:30 07/25/20 07:02 / Dextrose/Water IVPB 250 mls INF PRN Administration TO MAINTAIN MAP > 65 Protocol As Directed Vasopressin 20 unit/ 51 mls @ 0 mls/hr 07/24/20 18:00 07/26/20 14:49 Miscellaneous Medication 1 IV 51 mls each/ Sodium Chloride INF ELYSE Administration Protocol As Directed Cefepime HCl 1 gm/ Sodium 100 mls @ 200 mls/hr 07/26/20 09:00 07/27/20 08:32 Chloride IVPB 100 mls Q12HR ELYSE Administration Vancomycin HCl 1.5 gm/ Device 300 mls @ 166.667 mls/hr 07/27/20 12:00 07/27/20 11:58 IVPB 300 mls 1200,2359 ELYSE Administration Lorazepam 2 mg 07/24/20 09:15 07/25/20 16:28 Lorazepam 2 Mg/Ml Vial SLOW IVP 08/23/20 09:15 2 mg Q1H PRN Administration Breakthrough agitation Methylprednisolone Sodium Succinate 40 mg 07/26/20 12:00 07/27/20 11:52 Methylprednisolone Sod Succ 40 Mg Vial IVP 40 mg Q6HR ELYSE Administration Mometasone Furoate/Formoterol Fumar 2 puff 07/26/20 18:30 07/27/20 07:40 Mometasone 200 Mcg/Formoterol 5 Mcg 120 Puff Inhaler INH 2 puff BID-RT ELYSE Administration Sodium Chloride 10 ml 07/24/20 21:00 07/27/20 08:33 Flush - Normal Saline 10 Ml Syringe IVF 10 ml Q12HR ELYSE Administration - Exam ENT: normocephalic atraumatic Neck: supple Heart: RRR Respiratory: normal chest expansion Gastrointestinal: non-distended Extremities: no cyanosis, no edema Hosp A/P (1) Acute respiratory failure with hypoxia Code(s): J96.01 - ACUTE RESPIRATORY FAILURE WITH HYPOXIA Status: Acute (2) NSTEMI (non-ST elevated myocardial infarction) Code(s): I21.4 - NON-ST ELEVATION (NSTEMI) MYOCARDIAL INFARCTION Status: Acute (3) COVID-19 virus infection Code(s): U07.1 - COVID-19 Status: Acute (4) Elevated LFTs Code(s): R79.89 - OTHER SPECIFIED ABNORMAL FINDINGS OF BLOOD CHEMISTRY Status: Acute (5) MINA (acute kidney injury) Code(s): N17.9 - ACUTE KIDNEY FAILURE, UNSPECIFIED Status: Resolved (6) History of traumatic brain injury Code(s): Z87.820 - PERSONAL HISTORY OF TRAUMATIC BRAIN INJURY Status: Chronic (7) Hyperlipidemia Code(s): E78.5 - HYPERLIPIDEMIA, UNSPECIFIED Status: Chronic (8) Hypertension Code(s): I10 - ESSENTIAL (PRIMARY) HYPERTENSION Status: Chronic Qualifiers: Hypertension type: essential hypertension Qualified Code(s): I10 - Essential (primary) hypertension (9) Septic shock Code(s): A41.9 - SEPSIS, UNSPECIFIED ORGANISM; R65.21 - SEVERE SEPSIS WITH SEPTIC SHOCK Status: Suspected - Plan is off pressors (levophed and vasopressin), sbp around 140, weaning well on vent, might get extubated cefepime, vanc, nebs will need echo for ef, ?cardiogenic shock d/w sister and POA over phone, she is aware of guarded prognosis and the current treatment plan including lab work (07/25, 07/26, 07/27). off heparin drip due to progressive thrombocytopenia Hep C is +ve. not a candidate for remdesivir with grossly elevated lft's jay cultures are -ve, likely had underlying stunned myocardium which is resolving with slow tapering of LFT's down.
[2020-07-27 14:57] LABS: Acetaminophen Less than 6.0 mcg/mL (10.0-30.0)
[2020-07-28 04:15] LABS: #Lymphocytes 0.4 thou/uL (1.20-3.40); #Monocytes 0.9 thou/uL (0.11-0.59); #Neutrophils 7.6 thou/uL (1.40-6.50); %Basophils 0.3 % (0.0-1.0); %Lymphocytes 4.9 % (21.0-51.0); %Monocytes 9.9 % (0.0-10.0); %Neutrophils 84.9 % (42.0-75.0); Hemoglobin 13.5 g/dL (14.0-18.0); Mean Corpuscular HGB CONC 33.4 g/dL (32.0-36.0); Mean Corpuscular Hemoglobin 30.2 pg (27.0-31.0); Mean Corpuscular Volume 90.3 fL (78.0-98.0); Mean Platelet Volume 7.6 fL (7.4-10.4); Platelet Count 141 thou/uL (130-400); RBC Distribution Width 12.1 % (11.5-14.5); Red Blood Cell (RBC) Count 4.46 mill/uL (4.70-6.10); White Blood Cell (WBC) Count 8.9 thou/uL (4.8-10.8)
[2020-07-28 04:17] LABS: INR-International Normal Ratio 1.1; Prothrombin Time 14.1 sec (12.0-14.7)
--- NOTE | 2020-07-28 04:37 | PRG ---
DATE OF SERVICE: 07/27/2020 SUBJECTIVE: Mr. Farr may get extubated today. Dr. Malagon saw him for the first time yesterday for abrupt increase in liver function tests, which was felt to possibly be related to an ischemic injury. He does have history of chronic hep C, may have underlying cirrhosis. Additionally, he has COVID, although this is not typically seen with COVID infections. Nurse tells me he is doing well from a respiratory standpoint. MEDICATIONS: Include: 1. Prednisone. 2. Vancomycin. 3. Was on vasopressors, off now. VITAL SIGNS: Temperature 101.4 yesterday, presently 100.4; pulse 102; blood pressure LABORATORY DATA: White count 7.9, hemoglobin 11.8, platelet count 122. Bilirubin 1.3, AST and ALT now 1730 and 4205, alkaline phosphatase 79, albumin 3.4, AFP 4.8. Hepatitis A and B negative. Hepatic ultrasound 07/26, there was normal common bile duct, normal ultrasound. Dopplers were not done. ASSESSMENT: This could likely ischemic hepatopathy his renal failure, which is also improving LFTs were mildly elevated on admission and went up higher down. The possibility of an autoimmune disorder related to his COVID infection is possible. Possibility of Budd-Chiari will be considered as well. As numbers are getting better and he is not developing ascites and his renal function is getting better, we can see how he does over time and if LFTs not continued downward, his ultrasound is going to be repeated with Dopplers. We would repeat liver function tests, bilirubin tomorrow. Job ID: [id number]
[2020-07-28 04:43] LABS: ALT (SGPT) 2522 U/L (8-55); AST (SGOT) 677 U/L (5-34); Albumin 3.3 g/dL (3.5-5.0); Alkaline Phosphatase 94 U/L (40-110); Anion Gap 15 mmol/L (10-20); BUN (Urea Nitrogen) 31 mg/dL (8.4-25.7); Bilirubin, Total 1.2 mg/dL (0.2-1.2); Calc. Creatinine Clearance 97 mL/min (70-130); Calcium 8.4 mg/dL (7.8-10.44); Carbon Dioxide 28 mmol/L (22-29); Chloride 106 mmol/L (98-107); Estimated GFR-MDRD 75; Glucose 119 mg/dL (70-105); Potassium 3.4 mmol/L (3.5-5.1); Protein, Total 6.3 g/dL (6.0-8.3); Sodium 146 mmol/L (136-145)
[2020-07-28] MEDS: methylPREDNISolone Sod Succ 40 MG VIAL IVP SCH ×2 (05:25→19:59)
--- NOTE | 2020-07-28 06:59 | EKG ---
Test Reason : STAT Blood Pressure : / mmHG Vent. Rate : 058 BPM Atrial Rate : 058 BPM P-R Int : 152 ms QRS Dur : 090 ms QT Int : 476 ms P-R-T Axes : 064 -16 027 degrees QTc Int : 467 ms Sinus bradycardia Otherwise normal ECG No previous ECGs available Confirmed by NILDA DEL ROSARIO MD ([id number] on 07/28/2020 6:59:14 AM Referred By: CARIN Confirmed By:NILDA DEL ROSARIO MD
[2020-07-28] MEDS: Mometasone 200 MCG/Formoterol 5 MCG 120 PUFF INHALER INH SCH ×2 (07:45→18:26)
--- NOTE | 2020-07-28 07:50 | RAD ---
Chest AP view INDICATION: History of intubation COMPARISON: Prior exam dated July 27, 2020 FINDINGS: Lungs: There is persistent bibasilar airspace disease, left greater than right. The degree of bibasi lar airspace disease has improved from the prior exam. Cardiac silhouette: Mild cardiomegaly is stable. Pulmonary vasculature: Normal Pleural spaces: No pleural effusion or pneumothorax is demonstrated. Upper abdomen: No abnormality seen. Osseous structures: ACDF is unchanged. Additional findings: There is been interval extubation and removal of the gastric catheter. Left sub clavian central venous catheter is unchanged. IMPRESSION: Interval extubation and removal of a gastric catheter. Improvement in the bibasilar airspace disease. Stable left subclavian central venous catheter and mild cardiomegaly.
[2020-07-28] MEDS: Famotidine 20 MG TAB PO SCH ×3 (09:05→19:59)
[2020-07-28] MEDS: Sodium Chloride 0.9% 1,000 ML IV SCH ×2 (09:07→22:09)
[2020-07-28] MEDS: Cefepime 1 GM in Sodium Chloride 0.9% 100 ML IVPB SCH ×2 (09:26→19:58)
[2020-07-28] MEDS: Lorazepam 2 MG/ML VIAL SLOW IVP PRN (09:28)
--- NOTE | 2020-07-28 09:39 | PRG ---
DATE OF SERVICE: 07/28/2020 SUBJECTIVE: A 55-year-old gentleman who self-extubated yesterday. He is in no distress respiratory-tafoya, but he is still agitated. OBJECTIVE: VITAL SIGNS: Temperature 98, pulse 105, blood pressure 170/91, respirations 18, sats 90% on room air. CHEST: Bilateral crackles and rhonchi. CARDIAC: Normal S1, S2. No gallops. ABDOMEN: No masses. His ALT and AST are much improved. X-ray shows left-sided infiltrate. IMPRESSION: 1. Respiratory failure. 2. Mcmanus positive pneumonia. 3. Traumatic brain injury. 4. Encephalopathy. 5. Persistent fever. 6. Left-sided pneumonia. PLAN: We will try a diet. He can probably be transferred out of the ICU to a medical bed. I will continue Maxipime, supportive care, PT. One-half hour of critical time. Job ID: [id number]
[2020-07-28] MEDS: risperiDONE 0.25 MG TAB PO SCH ×2 (11:21→19:59)
[2020-07-28] MEDS: Vancomycin 1.5 GRAM/300 ML BAG 1.5 GM in Premix Bag 1 BAG IVPB SCH (12:17)
--- NOTE | 2020-07-28 13:30 | PDOC.HOSPP ---
- Subjective Encounter Date: 07/28/20 Encounter Time: 08:20 Subjective: awakens to touch but is not oriented is in restraints self extubated yesterday evening, maintaining spo2 now. - Objective Vital Signs & Weight: Vital Signs (12 hours) Temp 07/28/20 12:00 99.6 F 07/28/20 08:00 99.9 F H Weight Admit Weight 186 lb Weight 189 lb 9.561 oz Most Recent Monitor Data Heart Rate from ECG 85 NIBP 140/50 NIBP BP-Mean 80 Respiration from ECG 25 SpO2 93 I&O: 07/27/20 07/28/20 07/29/20 06:59 06:59 06:59 Intake Total 2237.4 924 250 Output Total 2180 1870 650 Balance 57.4 -946 -400 Result Diagrams: 07/28/20 03:31 07/28/20 03:31 Hospitalist ROS - Medication Medications: Active Medications Generic Name Dose Route Start Last Admin Trade Name Freq PRN Reason Stop Dose Admin Famotidine 20 mg 07/27/20 09:00 07/28/20 09:05 Famotidine 20 Mg Tab PO 20 mg BID ELYSE Administration Sodium Chloride 1,000 mls @ 75 mls/hr 07/24/20 08:15 07/28/20 09:07 Normal Saline 0.9% IV 1,000 mls .[id number] ELYSE Administration Cefepime HCl 1 gm/ Sodium 100 mls @ 200 mls/hr 07/26/20 09:00 07/28/20 09:26 Chloride IVPB 100 mls Q12HR ELYSE Administration Vancomycin HCl 1.5 gm/ Device 300 mls @ 166.667 mls/hr 07/27/20 12:00 07/28/20 12:17 IVPB 300 mls 1200,2359 ELYSE Administration Lorazepam 2 mg 07/24/20 09:15 07/28/20 09:28 Lorazepam 2 Mg/Ml Vial SLOW IVP 08/23/20 09:15 2 mg Q1H PRN Administration Breakthrough agitation Mometasone Furoate/Formoterol Fumar 2 puff 07/26/20 18:30 07/28/20 07:45 Mometasone 200 Mcg/Formoterol 5 Mcg 120 Puff Inhaler INH 2 puff BID-RT ELYSE Administration Risperidone 0.25 mg 07/28/20 09:00 07/28/20 11:21 Risperidone 0.25 Mg Tab PO Not Given BID ELYSE Sodium Chloride 10 ml 07/24/20 21:00 07/28/20 09:07 Flush - Normal Saline 10 Ml Syringe IVF 10 ml Q12HR ELYSE Administration - Exam General Appearance: ill appearing Eye: PERRL, anicteric sclera ENT: no oropharyngeal lesions, dry oral mucosa Neck: supple, no JVD Heart: RRR, no murmur Respiratory: no wheezes, no rales, rhonchi Gastrointestinal: soft, non-tender, non-distended, normal bowel sounds Extremities: no cyanosis, no edema Neurological: cranial nerve grossly intact, hemiplegia Neurological - other findings: right hemiparesis Hosp A/P (1) Acute respiratory failure with hypoxia Code(s): J96.01 - ACUTE RESPIRATORY FAILURE WITH HYPOXIA Status: Acute (2) NSTEMI (non-ST elevated myocardial infarction) Code(s): I21.4 - NON-ST ELEVATION (NSTEMI) MYOCARDIAL INFARCTION Status: Acute (3) COVID-19 virus infection Code(s): U07.1 - COVID-19 Status: Acute (4) Elevated LFTs Code(s): R79.89 - OTHER SPECIFIED ABNORMAL FINDINGS OF BLOOD CHEMISTRY Status: Acute (5) MINA (acute kidney injury) Code(s): N17.9 - ACUTE KIDNEY FAILURE, UNSPECIFIED Status: Resolved (6) History of traumatic brain injury Code(s): Z87.820 - PERSONAL HISTORY OF TRAUMATIC BRAIN INJURY Status: Chronic (7) Hyperlipidemia Code(s): E78.5 - HYPERLIPIDEMIA, UNSPECIFIED Status: Chronic (8) Hypertension Code(s): I10 - ESSENTIAL (PRIMARY) HYPERTENSION Status: Chronic Qualifiers: Hypertension type: essential hypertension Qualified Code(s): I10 - Essential (primary) hypertension (9) Septic shock Code(s): A41.9 - SEPSIS, UNSPECIFIED ORGANISM; R65.21 - SEVERE SEPSIS WITH SEPTIC SHOCK Status: Suspected - Plan got extubated 07/27, is encephalopathic, on risperidone bid, sitter as needed. cefepime, vanc, nebs will need echo for ef, ?cardiogenic shock d/w sister and POA over phone, she is aware of guarded prognosis and the current treatment plan including lab work (07/25, 07/26, 07/27). off heparin drip due to progressive thrombocytopenia Hep C is +ve. Tylenol levels drawn on 07/27 were normal (was not obtained earlier) not a candidate for remdesivir with grossly elevated lft's which are dramatically trending down now jay cultures are -ve, likely had underlying stunned myocardium which is resolving with slow tapering of LFT's down. oral liq diet, PT eval, oob to chair as tolerated.
[2020-07-28] MEDS: Haloperidol Lactate 5 MG/ML VIAL SLOW IVP PRN (13:55)
--- NOTE | 2020-07-28 14:10 | PRG ---
DATE OF SERVICE: 07/28/2020 SUBJECTIVE: Mr. Farr self-extubated yesterday evening. He is breathing on his own. He remains encephalopathic with no meaningful communication, pulling at his restraints. He has remained hemodynamically stable. The LFTs are trending down rapidly. OBJECTIVE: VITAL SIGNS: Temperature 99.6, pulse 85, blood pressure 140/50, 93% oxygen saturation on 2 L nasal cannula. GENERAL: Encephalopathic, agitated. No meaningful communication. HEART: Regular rate and rhythm. LUNGS: Bibasilar crackles. No respiratory distress. ABDOMEN: Nondistended. Bowel sounds present. Soft and nontender to palpation. EXTREMITIES: No peripheral edema. LABORATORY STUDIES: WBC 8.9, hemoglobin 13.5, platelets up to 141. INR 1.1. Sodium 146, potassium 3.4, BUN 31, creatinine 1.02, total bilirubin down to 1.2, alkaline phosphatase 94, AST is down from 1768 to 677, ALT is down from 4152 to 2522. AFP is normal at 4.8. Ferritin very elevated at 22,753, likely represents acute phase reactant. Urinalysis negative. Acetaminophen level negative. Viral hepatitis serologies positive for hepatitis C antibody with confirmatory PCR also positive though at a low level of 4170. Hepatitis A and B serologies are negative. Other labs pending include AMA and ASMA. ASSESSMENT AND PLAN: 1. Ischemic hepatopathy/shock liver. This appears to be dramatically improving as expected with good hemodynamic support. Still awaiting some autoimmune markers. He does appear to have chronic hepatitis C, though at a low viral load, but acute presentation is not likely related to this. Continue to trend LFTs and expect continued rapid decline, though normalization may take a couple of weeks. 2. COVID. 3. Hun-KE-drffxpnff myocardial infarction. 4. Encephalopathy. The patient continues on antibiotics, steroids, and breathing treatments. He is no longer intubated. 5. GI can continue to follow along tomorrow. Please call anytime with questions or concerns. Job ID: [id number]
[2020-07-28 22:44] LABS: Vancomycin, Trough 14.3 ug/mL
[2020-07-28] MEDS ORDERED: Vancomycin HCl 1.75 GM in Sodium Chloride 0.9% 500 ML IVPB SCH (23:59)
[2020-07-29 04:43] LABS: #Lymphocytes 0.3 thou/uL (1.20-3.40); #Monocytes 0.6 thou/uL (0.11-0.59); #Neutrophils 6.9 thou/uL (1.40-6.50); %Eosinophils 0.1 % (0.0-10.0); %Monocytes 8.2 % (0.0-10.0); %Neutrophils 87.7 % (42.0-75.0); Hemoglobin 13.1 g/dL (14.0-18.0); Mean Corpuscular HGB CONC 32.8 g/dL (32.0-36.0); Mean Corpuscular Hemoglobin 29.6 pg (27.0-31.0); Mean Corpuscular Volume 90.4 fL (78.0-98.0); Mean Platelet Volume 8.1 fL (7.4-10.4); Platelet Count 148 thou/uL (130-400); RBC Distribution Width 12.2 % (11.5-14.5); Red Blood Cell (RBC) Count 4.44 mill/uL (4.70-6.10); White Blood Cell (WBC) Count 7.8 thou/uL (4.8-10.8)
[2020-07-29 04:48] LABS: INR-International Normal Ratio 1.1; Prothrombin Time 14.6 sec (12.0-14.7)
[2020-07-29 05:06] LABS: ALT (SGPT) 1596 U/L (8-55); AST (SGOT) 276 U/L (5-34); Albumin 3.3 g/dL (3.5-5.0); Alkaline Phosphatase 87 U/L (40-110); Anion Gap 13 mmol/L (10-20); BUN (Urea Nitrogen) 31 mg/dL (8.4-25.7); Bilirubin, Total 1.1 mg/dL (0.2-1.2); Calc. Creatinine Clearance 108 mL/min (70-130); Calcium 8.4 mg/dL (7.8-10.44); Carbon Dioxide 28 mmol/L (22-29); Chloride 111 mmol/L (98-107); Estimated GFR-MDRD 87; Globulin 2.8 g/dL (2.4-3.5); Glucose 123 mg/dL (70-105); Potassium 3.4 mmol/L (3.5-5.1); Protein, Total 6.1 g/dL (6.0-8.3); Sodium 149 mmol/L (136-145)
[2020-07-29] MEDS: Dextrose 5% in Water 1,000 ML IV SCH ×3 (06:28→20:30)
[2020-07-29] MEDS: Mometasone 200 MCG/Formoterol 5 MCG 120 PUFF INHALER INH SCH ×2 (07:00→18:11)
--- NOTE | 2020-07-29 08:35 | RAD ---
EXAM: Single view of the chest HISTORY: Ventilated patient with respiratory failure COMPARISON: 07/28/2020 FINDINGS: Single view of the chest shows an enlarged cardiomediastinal silhouette. Atherosclerotic ca lcifications are seen in the aorta. The central venous catheter is unchanged in position. Bilateral perihilar fullness is seen. Opacity in the left lung base may represent atelectasis or an infiltrate . Hardware is seen in the cervical spine. IMPRESSION: Left basal atelectasis versus infiltrate.
--- NOTE | 2020-07-29 08:47 | PRG ---
DATE OF SERVICE: 07/29/2020 SUBJECTIVE: Ebenezer Farr was extubated yesterday. OBJECTIVE: VITAL SIGNS: He is doing well, but on room air, his saturations are 99%, pulse 120, blood pressure , respiratory rate 18. He is unable to swallow anything, temperature 99.7. He is status post traumatic brain injury. CHEST: No wheezing, no crackles. CARDIAC: Normal S1, S2. No gallops. IMAGING: X-ray shows a left-sided infiltrate. ASSESSMENT: 1. Respiratory failure, garcia positive pneumonia. 2. Previous traumatic injury. 3. Dysphagia. Speech is being ordered. 4. In the meantime, we will continue steroids, empiric antibiotics. 5. He can probably be transferred out of the ICU. 6. All cultures are negative. I see no reason to continue vancomycin. One-half hour of critical time. Job ID: [id number]
[2020-07-29] MEDS: Cefepime 1 GM in Sodium Chloride 0.9% 100 ML IVPB SCH ×2 (08:56→20:27)
[2020-07-29] MEDS: methylPREDNISolone Sod Succ 40 MG VIAL IVP SCH ×2 (08:57→20:30)
[2020-07-29] MEDS: Famotidine 20 MG TAB PO SCH ×2 (08:57→21:33)
[2020-07-29] MEDS: risperiDONE 0.25 MG TAB PO SCH ×2 (08:57→21:33)
[2020-07-29] MEDS: Haloperidol Lactate 5 MG/ML VIAL SLOW IVP PRN ×2 (09:06→15:26)
--- NOTE | 2020-07-29 12:11 | PRG ---
DATE OF SERVICE: 07/29/2020 SUBJECTIVE: Mr. Farr has been confused still. He has had no nausea or vomiting, but has had trouble swallowing. OBJECTIVE: VITAL SIGNS: Temperature 98.4, blood pressure 139/71, pulse 80. GENERAL: He is in no acute distress. He is not oriented. He is lying comfortably in bed now. LABORATORY DATA: White blood cell count 7.8, hemoglobin 13.1, platelets 148. INR 1.1, creatinine 0.9, bilirubin 1.1. AST 276, ALT 1596, alkaline phosphatase 87, albumin 3.3, alpha fetoprotein was 4.8. IMPRESSION: 1. Ischemic hepatopathy, improving. His INR and bilirubin have returned to normal. His transaminases are trending down sharply. 2. History of chronic hepatitis C. He does not have signs of obvious cirrhosis, but could have chronic underlying cirrhosis. His alpha fetoprotein is normal. Regarding the chronic hepatitis C and followup of his liver, this can be managed as an outpatient in the future. 3. Oropharyngeal dysphagia. He is being evaluated for a swallowing study today. If he fails this, then a Dobbhoff tube can be placed or an NG tube. We would not place a PEG tube immediately. 4. COVID positive. 5. Sepsis and acute renal failure, improved. RECOMMENDATIONS: I will sign off for now. Please call if GI can be of assistance. Job ID: [id number] MTDD
--- NOTE | 2020-07-29 14:28 | PDOC.HOSPP ---
- Subjective Encounter Date: 07/29/20 Encounter Time: 10:30 Subjective: awake, but not oriented, appears better than yesterday is not in distress does not follow verbal stimuli, moves his left extremities freely is on nasal canula - Objective Vital Signs & Weight: Vital Signs (12 hours) Temp Pulse Pulse BP BP Pulse Ox Pulse Ox 07/29/20 12:00 98.3 F 07/29/20 10:00 77 76 132/76 138/74 91 L 07/29/20 08:00 98.4 F 92 L Pulse Ox 07/29/20 12:00 07/29/20 10:00 94 L 07/29/20 08:00 Weight Admit Weight 186 lb Weight 186 lb 11.704 oz Most Recent Monitor Data Heart Rate from ECG 117 NIBP 138/84 NIBP BP-Mean 102 Respiration from ECG 23 SpO2 96 I&O: 07/28/20 07/29/20 07/30/20 06:59 06:59 06:59 Intake Total 924 2868 100 Output Total 1870 2195 760 Balance -946 673 -660 Result Diagrams: 07/29/20 04:10 07/29/20 04:10 Hospitalist ROS - Medication Medications: Active Medications Generic Name Dose Route Start Last Admin Trade Name Freq PRN Reason Stop Dose Admin Famotidine 20 mg 07/27/20 09:00 07/29/20 08:57 Famotidine 20 Mg Tab PO Not Given BID ELYSE Haloperidol Lactate 5 mg 07/28/20 13:46 07/29/20 09:06 Haloperidol Lactate 5 Mg/Ml Vial SLOW IVP 5 mg Q6H PRN Administration Agitation Cefepime HCl 1 gm/ Sodium 100 mls @ 200 mls/hr 07/26/20 09:00 07/29/20 08:56 Chloride IVPB 100 mls Q12HR ELYSE Administration Dextrose/Water 1,000 mls @ 100 mls/hr 07/29/20 06:15 07/29/20 06:28 D5w IV 1,000 mls .Q10H ELYSE Administration Lorazepam 2 mg 07/24/20 09:15 07/28/20 09:28 Lorazepam 2 Mg/Ml Vial SLOW IVP 08/23/20 09:15 2 mg Q1H PRN Administration Breakthrough agitation Methylprednisolone Sodium Succinate 40 mg 07/28/20 21:00 07/29/20 08:57 Methylprednisolone Sod Succ 40 Mg Vial IVP 40 mg BID ELYSE Administration Mometasone Furoate/Formoterol Fumar 2 puff 07/26/20 18:30 07/29/20 07:00 Mometasone 200 Mcg/Formoterol 5 Mcg 120 Puff Inhaler INH Not Given BID-RT ELYSE Risperidone 0.25 mg 07/28/20 09:00 07/29/20 08:57 Risperidone 0.25 Mg Tab PO Not Given BID ELYSE Sodium Chloride 10 ml 07/24/20 21:00 07/29/20 08:58 Flush - Normal Saline 10 Ml Syringe IVF 10 ml Q12HR ELYSE Administration - Exam General Appearance: awake alert Eye: PERRL, anicteric sclera ENT: no oropharyngeal lesions, dry oral mucosa Neck: supple, no JVD Heart: RRR, no murmur Respiratory: no wheezes, no rales, rhonchi Gastrointestinal: soft, non-tender, non-distended, normal bowel sounds Extremities: no cyanosis, no edema Neurological: no new deficit, hemiplegia Hosp A/P (1) Acute respiratory failure with hypoxia Code(s): J96.01 - ACUTE RESPIRATORY FAILURE WITH HYPOXIA Status: Resolved (2) NSTEMI (non-ST elevated myocardial infarction) Code(s): I21.4 - NON-ST ELEVATION (NSTEMI) MYOCARDIAL INFARCTION Status: Acute (3) COVID-19 virus infection Code(s): U07.1 - COVID-19 Status: Acute (4) Elevated LFTs Code(s): R79.89 - OTHER SPECIFIED ABNORMAL FINDINGS OF BLOOD CHEMISTRY Status: Acute (5) MINA (acute kidney injury) Code(s): N17.9 - ACUTE KIDNEY FAILURE, UNSPECIFIED Status: Resolved (6) History of traumatic brain injury Code(s): Z87.820 - PERSONAL HISTORY OF TRAUMATIC BRAIN INJURY Status: Chronic (7) Hyperlipidemia Code(s): E78.5 - HYPERLIPIDEMIA, UNSPECIFIED Status: Chronic (8) Hypertension Code(s): I10 - ESSENTIAL (PRIMARY) HYPERTENSION Status: Chronic Qualifiers: Hypertension type: essential hypertension Qualified Code(s): I10 - Essential (primary) hypertension (9) Septic shock Code(s): A41.9 - SEPSIS, UNSPECIFIED ORGANISM; R65.21 - SEVERE SEPSIS WITH SEPTIC SHOCK Status: Suspected - Plan got extubated 11/17, is encephalopathic, on risperidone bid, sitter as needed. cefepime, nebs, cultures are -ve will need echo for ef, ?cardiogenic shock d/w sister and POA over phone, she is aware of guarded prognosis and the current treatment plan including lab work (07/25, 07/26, 07/27, 07/29). off heparin drip due to progressive thrombocytopenia Hep C is +ve. Tylenol levels drawn on 07/27 were normal (was not obtained earlier) not a candidate for remdesivir with grossly elevated lft's which are dramatically trending down now jay cultures are -ve, likely had underlying stunned myocardium which is resolving with slow tapering of LFT's down. oral liq diet if cleared by speech, PT eval, oob to chair as tolerated. staff to obtain accurate medication list from [facility], is on seizure meds per sister, for now will start on keppra until home med list is available
[2020-07-29] MEDS ORDERED: levETIRAcetam in NS 500 MG in Premix Bag 1 BAG IVPB SCH (21:00)
[2020-07-30 03:40] LABS: INR-International Normal Ratio 1.2; Prothrombin Time 15.6 sec (12.0-14.7)
[2020-07-30 03:49] LABS: ALT (SGPT) 1136 U/L (8-55); AST (SGOT) 147 U/L (5-34); Albumin 3.3 g/dL (3.5-5.0); Alkaline Phosphatase 91 U/L (40-110); Anion Gap 14 mmol/L (10-20); BUN (Urea Nitrogen) 26 mg/dL (8.4-25.7); Bilirubin, Total 1.5 mg/dL (0.2-1.2); Calc. Creatinine Clearance 111 mL/min (70-130); Calcium 8.3 mg/dL (7.8-10.44); Carbon Dioxide 27 mmol/L (22-29); Chloride 109 mmol/L (98-107); Estimated GFR-MDRD 89; Globulin 2.8 g/dL (2.4-3.5); Glucose 135 mg/dL (70-105); Potassium 3.3 mmol/L (3.5-5.1); Protein, Total 6.1 g/dL (6.0-8.3); Sodium 147 mmol/L (136-145)
[2020-07-30 04:14] LABS: Band 24 % (5-11); Hemoglobin 13.1 g/dL (14.0-18.0); Lymphocytes 2 % (21-51); MDiff Complete? YES; Mean Corpuscular HGB CONC 33.9 g/dL (32.0-36.0); Mean Corpuscular Hemoglobin 30.7 pg (27.0-31.0); Mean Corpuscular Volume 90.7 fL (78.0-98.0); Monocytes 11 % (0-10); Neutrophil 63 % (42-75); Platelet Count 150 thou/uL (130-400); RBC Distribution Width 12.2 % (11.5-14.5); Red Blood Cell (RBC) Count 4.26 mill/uL (4.70-6.10)
[2020-07-30] MEDS: Haloperidol Lactate 5 MG/ML VIAL SLOW IVP PRN (06:35)
[2020-07-30] MEDS ORDERED: MULTIVIT WITH IRON MINERALS PO SCH (09:00)
[2020-07-30] MEDS ORDERED: Non-Formulary Item 1 EACH (Lacosamide [Vimpat] 200 MG Tablet) PO SCH (09:00)
[2020-07-30] MEDS ORDERED: Cefdinir 300 MG CAP PO SCH (10:45)
[2020-07-30] MEDS ORDERED: predniSONE 20 MG TAB PO SCH (11:00)
--- NOTE | 2020-07-30 11:15 | PRG ---
DATE OF SERVICE: 07/30/2020 SUBJECTIVE: Ebenezer Farr is a 55-year-old gentleman, remains in the MICU. OBJECTIVE: VITAL SIGNS: Temperature is 98, saturations are 90%, respirations 24, blood pressure 150/92. GENERAL: Still agitated, but better. CHEST: No wheezing. No crackles. CARDIAC: Normal S1, S2. No gallops. ABDOMEN: No mass. LABORATORY DATA: Renal function better. ASSESSMENT: Status post garcia positive pneumonia, respiratory failure, encephalopathy. PLAN: Switch to p.o. medicine. Eventually placement. Job ID: [id number]
[2020-07-30] MEDS: risperiDONE 0.25 MG TAB PO SCH ×2 (11:23→20:56)
[2020-07-30] MEDS: Lisinopril 5 MG TAB PO SCH (11:23)
[2020-07-30] MEDS: Clopidogrel Bisulfate 75 MG TAB PO SCH (11:23)
[2020-07-30] MEDS: FLUoxetine HCl 20 MG CAP PO SCH (11:23)
[2020-07-30] MEDS: Metoprolol Tartrate 25 MG TAB PO SCH ×2 (11:23→20:56)
[2020-07-30] MEDS: Lacosamide 50 mg Tablet PO SCH ×2 (11:25→20:56)
[2020-07-30] MEDS: Famotidine 20 MG TAB PO SCH ×2 (11:50→20:56)
[2020-07-30] MEDS: Aspirin Chewable 81 MG TAB PO SCH (11:50)
[2020-07-30] MEDS: Folic Acid 1 MG TAB PO SCH (11:50)
[2020-07-30] MEDS: Polyethylene Glycol 3350 17 GM Packet PO SCH (11:51)
[2020-07-30] MEDS: Rosuvastatin 20 MG TAB PO SCH (11:51)
[2020-07-30] MEDS: Multivitamin W/ Minerals 1 TAB PO SCH (11:51)
[2020-07-30] MEDS ORDERED: Ibuprofen 100 MG/5 ML UDCUP PO PRN (11:56)
[2020-07-30] MEDS: Cefepime 1 GM in Sodium Chloride 0.9% 100 ML IVPB SCH (11:58)
[2020-07-30] MEDS: methylPREDNISolone Sod Succ 40 MG VIAL IVP SCH (11:58)
[2020-07-30] MEDS: Mometasone 200 MCG/Formoterol 5 MCG 120 PUFF INHALER INH SCH ×2 (11:59→19:00)
[2020-07-30] MEDS: Dextrose 5% in Water 1,000 ML IV SCH (11:59)
--- NOTE | 2020-07-30 14:39 | PDOC.HOSPP ---
- Subjective Encounter Date: 07/30/20 Encounter Time: 10:25 Subjective: is more awake this morning than yesterday not oriented, follows some stimuli not in distress - Objective Vital Signs & Weight: Vital Signs (12 hours) Temp Pulse Resp BP Pulse Ox 07/30/20 11:53 99.9 F H 91 20 97 07/30/20 11:23 91 144/124 H 07/30/20 08:00 96 07/30/20 06:00 98.9 F Weight Admit Weight 186 lb Weight 185 lb 8 oz Most Recent Monitor Data Heart Rate from ECG 77 NIBP 135/83 NIBP BP-Mean 100 Respiration from ECG 34 SpO2 99 I&O: 07/29/20 07/30/20 07/31/20 06:59 06:59 06:59 Intake Total 2868 1250 Output Total 2195 2620 Balance 673 -1370 Result Diagrams: 07/30/20 03:15 07/30/20 03:15 Hospitalist ROS - Medication Medications: Active Medications Generic Name Dose Route Start Last Admin Trade Name Freq PRN Reason Stop Dose Admin Aspirin 81 mg 07/30/20 09:00 07/30/20 11:50 Aspirin Chewable 81 Mg Tab PO Not Given DAILY ELYSE Clopidogrel Bisulfate 75 mg 07/30/20 09:00 07/30/20 11:23 Clopidogrel Bisulfate 75 Mg Tab PO 75 mg DAILY ELYSE Administration Famotidine 20 mg 07/27/20 09:00 07/30/20 11:50 Famotidine 20 Mg Tab PO Not Given BID ELYSE Fluoxetine HCl 20 mg 07/30/20 09:00 07/30/20 11:23 Fluoxetine Hcl 20 Mg Cap PO 20 mg DAILY ELYSE Administration Folic Acid 1 mg 07/30/20 09:00 07/30/20 11:50 Folic Acid 1 Mg Tab PO Not Given DAILY ELYSE Haloperidol Lactate 5 mg 07/28/20 13:46 07/30/20 06:35 Haloperidol Lactate 5 Mg/Ml Vial SLOW IVP 5 mg Q6H PRN Administration Agitation Dextrose/Water 1,000 mls @ 100 mls/hr 07/29/20 06:15 07/30/20 11:59 D5w IV 1,000 mls .Q10H ELYSE Administration Ibuprofen 400 mg 07/30/20 11:56 07/30/20 13:48 Ibuprofen 100 Mg/5 Ml Udcup PO 400 mg Q8H PRN Administration fever/moderate pain (4-6) Iron/Minerals/Multivitamins 1 tab 07/30/20 09:00 07/30/20 11:51 Multivitamin W/ Minerals 1 Tab PO Not Given DAILY ELYSE Lacosamide 200 mg 07/30/20 09:00 07/30/20 11:25 Lacosamide 50 Mg Tablet PO 200 mg BID ELYSE Administration Lisinopril 5 mg 07/30/20 09:00 07/30/20 11:23 Lisinopril 5 Mg Tab PO 5 mg DAILY ELYSE Administration Lorazepam 2 mg 07/24/20 09:15 07/28/20 09:28 Lorazepam 2 Mg/Ml Vial SLOW IVP 08/23/20 09:15 2 mg Q1H PRN Administration Breakthrough agitation Metoprolol Tartrate 25 mg 07/30/20 09:00 07/30/20 11:23 Metoprolol Tartrate 25 Mg Tab PO 25 mg BID ELYSE Administration Mometasone Furoate/Formoterol Fumar 2 puff 07/26/20 18:30 07/30/20 11:59 Mometasone 200 Mcg/Formoterol 5 Mcg 120 Puff Inhaler INH Not Given BID-RT ELYSE Polyethylene Glycol 17 gm 07/30/20 09:00 07/30/20 11:51 Polyethylene Glycol 3350 17 Gm Packet PO Not Given DAILY ELYSE Risperidone 0.25 mg 07/28/20 09:00 07/30/20 11:23 Risperidone 0.25 Mg Tab PO 0.25 mg BID ELYSE Administration Rosuvastatin Calcium 20 mg 07/30/20 09:00 07/30/20 11:51 Rosuvastatin 20 Mg Tab PO Not Given DAILY ELYSE Sodium Chloride 10 ml 07/24/20 21:00 07/30/20 11:51 Flush - Normal Saline 10 Ml Syringe IVF 10 ml Q12HR ELYSE Administration Sodium Chloride 10 ml 07/24/20 19:45 07/30/20 06:36 Flush - Normal Saline 10 Ml Syringe IVF 10 ml PRN PRN Administration Saline Flush - Exam General Appearance: ill appearing Eye: PERRL, anicteric sclera ENT: no oropharyngeal lesions, dry oral mucosa Neck: supple, no JVD Heart: RRR, no murmur Respiratory: no wheezes, no rales, rhonchi Gastrointestinal: soft, non-tender, non-distended, normal bowel sounds Extremities: no cyanosis, no edema Neurological: no new deficit, hemiplegia Hosp A/P (1) Acute respiratory failure with hypoxia Code(s): J96.01 - ACUTE RESPIRATORY FAILURE WITH HYPOXIA Status: Resolved (2) NSTEMI (non-ST elevated myocardial infarction) Code(s): I21.4 - NON-ST ELEVATION (NSTEMI) MYOCARDIAL INFARCTION Status: Acute (3) COVID-19 virus infection Code(s): U07.1 - COVID-19 Status: Acute (4) Elevated LFTs Code(s): R79.89 - OTHER SPECIFIED ABNORMAL FINDINGS OF BLOOD CHEMISTRY Status: Acute (5) MINA (acute kidney injury) Code(s): N17.9 - ACUTE KIDNEY FAILURE, UNSPECIFIED Status: Resolved (6) History of traumatic brain injury Code(s): Z87.820 - PERSONAL HISTORY OF TRAUMATIC BRAIN INJURY Status: Chronic (7) Hyperlipidemia Code(s): E78.5 - HYPERLIPIDEMIA, UNSPECIFIED Status: Chronic (8) Hypertension Code(s): I10 - ESSENTIAL (PRIMARY) HYPERTENSION Status: Chronic Qualifiers: Hypertension type: essential hypertension Qualified Code(s): I10 - Essential (primary) hypertension (9) Septic shock Code(s): A41.9 - SEPSIS, UNSPECIFIED ORGANISM; R65.21 - SEVERE SEPSIS WITH SEPTIC SHOCK Status: Suspected - Plan got extubated 07/27, encephalopathy is slowly resolving, on risperidone bid, sitter as needed. omnicef, nebs, cultures are -ve will need echo for ef, ?cardiogenic shock d/w sister and POA over phone, she is aware of guarded prognosis and the current treatment plan including lab work (07/25, 07/26, 07/27, 07/29, 07/30). off heparin drip due to progressive thrombocytopenia Hep C is +ve. Tylenol levels drawn on 07/27 were normal (was not obtained earlier) not a candidate for remdesivir with grossly elevated lft's which are dramatically trending down now jay cultures are -ve, likely had underlying stunned myocardium which is resolving with slow tapering of LFT's down. oral liq diet if cleared by speech, PT eval, oob to chair as tolerated.
[2020-07-30] MEDS: Cefdinir 300 MG CAP PO SCH (20:56)
[2020-07-31] MEDS: Dextrose 5% in Water 1,000 ML IV SCH ×2 (00:53→11:04)
[2020-07-31 04:03] LABS: INR-International Normal Ratio 1.1; Prothrombin Time 14.8 sec (12.0-14.7)
[2020-07-31 04:22] LABS: ALT (SGPT) 752 U/L (8-55); AST (SGOT) 95 U/L (5-34); Alkaline Phosphatase 93 U/L (40-110); Anion Gap 12 mmol/L (10-20); BUN (Urea Nitrogen) 24 mg/dL (8.4-25.7); Bilirubin, Total 1.8 mg/dL (0.2-1.2); Calc. Creatinine Clearance 120 mL/min (70-130); Carbon Dioxide 29 mmol/L (22-29); Chloride 103 mmol/L (98-107); Estimated GFR-MDRD Greater than 90; Globulin 2.7 g/dL (2.4-3.5); Glucose 105 mg/dL (70-105); Potassium 3.4 mmol/L (3.5-5.1); Protein, Total 5.7 g/dL (6.0-8.3); Sodium 141 mmol/L (136-145)
[2020-07-31 05:42] LABS: Band 11 % (5-11); Hemoglobin 13.7 g/dL (14.0-18.0); Lymphocytes 7 % (21-51); MDiff Complete? YES; Mean Corpuscular HGB CONC 35.7 g/dL (32.0-36.0); Mean Corpuscular Hemoglobin 32.5 pg (27.0-31.0); Mean Corpuscular Volume 90.9 fL (78.0-98.0); Mean Platelet Volume 8.6 fL (7.4-10.4); Monocytes 6 % (0-10); Myelocyte 1 % (0-0); Neutrophil 75 % (42-75); Platelet Count 183 thou/uL (130-400); RBC Distribution Width 13.2 % (11.5-14.5); Red Blood Cell (RBC) Count 4.21 mill/uL (4.70-6.10); White Blood Cell (WBC) Count 6.2 thou/uL (4.8-10.8)
[2020-07-31] MEDS: Aspirin Chewable 81 MG TAB PO SCH (08:41)
[2020-07-31] MEDS: Polyethylene Glycol 3350 17 GM Packet PO SCH (08:41)
[2020-07-31] MEDS: Mometasone 200 MCG/Formoterol 5 MCG 120 PUFF INHALER INH SCH ×2 (08:41→18:22)
[2020-07-31] MEDS: Clopidogrel Bisulfate 75 MG TAB PO SCH (08:42)
[2020-07-31] MEDS: Folic Acid 1 MG TAB PO SCH (08:42)
[2020-07-31] MEDS: Rosuvastatin 20 MG TAB PO SCH (08:42)
[2020-07-31] MEDS: Famotidine 20 MG TAB PO SCH ×2 (08:42→21:21)
[2020-07-31] MEDS: Cefdinir 300 MG CAP PO SCH ×2 (08:42→21:21)
[2020-07-31] MEDS: Multivitamin W/ Minerals 1 TAB PO SCH (08:42)
[2020-07-31] MEDS: predniSONE 20 MG TAB PO SCH (08:42)
[2020-07-31] MEDS: Lisinopril 5 MG TAB PO SCH (08:42)
[2020-07-31] MEDS: FLUoxetine HCl 20 MG CAP PO SCH (08:42)
[2020-07-31] MEDS: Metoprolol Tartrate 25 MG TAB PO SCH ×2 (08:42→21:21)
[2020-07-31] MEDS: risperiDONE 0.25 MG TAB PO SCH ×2 (08:42→21:21)
[2020-07-31] MEDS ORDERED: Potassium Chloride 20 MEQ TAB PO SCH (09:00)
[2020-07-31] MEDS: Lacosamide 50 mg Tablet PO SCH ×2 (11:04→21:21)
--- NOTE | 2020-07-31 12:08 | PRG ---
DATE OF SERVICE: 07/31/2020 SUBJECTIVE: Ebenezer Farr is less agitated. OBJECTIVE: VITAL SIGNS: Temperature is 100, blood pressure 140/113, pulse 100, saturations 100% on 2 L, respiratory rate of 18. CHEST: No wheezing. No crackles. CARDIAC: Normal S1 and S2. No gallops. ABDOMEN: No masses. LABORATORY DATA: White count is , platelet count is normal. Renal function is getting better. ASSESSMENT: Respiratory failure, garcia positive pneumonia, encephalopathy, status post traumatic brain injury. PLAN: The patient looks much improved. He can be transferred out of the MICU to medical floor. We will taper steroids slowly. Job ID: [id number]
--- NOTE | 2020-07-31 12:33 | PDOC.HOSPP ---
- Subjective Encounter Date: 07/31/20 Encounter Time: 10:35 Subjective: Patient seen and examined bedside today, no overnight event, no new complaint, patient is on 3 L nasal cannula oxygen - Objective Vital Signs & Weight: Vital Signs (12 hours) Temp 07/31/20 08:00 100.0 F H 07/31/20 06:00 98.8 F 07/31/20 04:00 98.7 F Weight Admit Weight 186 lb Weight 185 lb 14.4 oz Most Recent Monitor Data Heart Rate from ECG 80 NIBP 140/113 NIBP BP-Mean 122 Respiration from ECG 26 SpO2 100 I&O: 07/30/20 07/31/20 08/01/20 06:59 06:59 06:59 Intake Total 1250 2440 Output Total 2620 2270 Balance -1370 170 Result Diagrams: 07/31/20 03:17 07/31/20 03:17 Radiology Reviewed by me: Yes EKG Reviewed by me: Yes Hospitalist ROS - Review of Systems ROS unobtainable: due to mental status - Medication Medications: Active Medications Generic Name Dose Route Start Last Admin Trade Name Freq PRN Reason Stop Dose Admin Aspirin 81 mg 07/30/20 09:00 07/31/20 08:41 Aspirin Chewable 81 Mg Tab PO 81 mg DAILY ELYSE Administration Cefdinir 300 mg 07/30/20 21:00 07/31/20 08:42 Cefdinir 300 Mg Cap PO 08/04/20 21:01 300 mg BID ELYSE Administration Clopidogrel Bisulfate 75 mg 07/30/20 09:00 07/31/20 08:42 Clopidogrel Bisulfate 75 Mg Tab PO 75 mg DAILY ELYSE Administration Famotidine 20 mg 07/27/20 09:00 07/31/20 08:42 Famotidine 20 Mg Tab PO 20 mg BID ELYSE Administration Fluoxetine HCl 20 mg 07/30/20 09:00 07/31/20 08:42 Fluoxetine Hcl 20 Mg Cap PO 20 mg DAILY ELYSE Administration Folic Acid 1 mg 07/30/20 09:00 07/31/20 08:42 Folic Acid 1 Mg Tab PO 1 mg DAILY ELYSE Administration Haloperidol Lactate 5 mg 07/28/20 13:46 07/30/20 06:35 Haloperidol Lactate 5 Mg/Ml Vial SLOW IVP 5 mg Q6H PRN Administration Agitation Dextrose/Water 1,000 mls @ 100 mls/hr 07/29/20 06:15 07/31/20 11:04 D5w IV 1,000 mls .Q10H ELYSE Administration Ibuprofen 400 mg 07/30/20 11:56 07/30/20 13:48 Ibuprofen 100 Mg/5 Ml Udcup PO 400 mg Q8H PRN Administration fever/moderate pain (4-6) Iron/Minerals/Multivitamins 1 tab 07/30/20 09:00 07/31/20 08:42 Multivitamin W/ Minerals 1 Tab PO 1 tab DAILY ELYSE Administration Lacosamide 200 mg 07/30/20 09:00 07/31/20 11:04 Lacosamide 50 Mg Tablet PO 200 mg BID ELYSE Administration Lisinopril 5 mg 07/30/20 09:00 07/31/20 08:42 Lisinopril 5 Mg Tab PO 5 mg DAILY ELYSE Administration Lorazepam 2 mg 07/24/20 09:15 07/28/20 09:28 Lorazepam 2 Mg/Ml Vial SLOW IVP 08/23/20 09:15 2 mg Q1H PRN Administration Breakthrough agitation Metoprolol Tartrate 25 mg 07/30/20 09:00 07/31/20 08:42 Metoprolol Tartrate 25 Mg Tab PO 25 mg BID ELYSE Administration Mometasone Furoate/Formoterol Fumar 2 puff 07/26/20 18:30 07/31/20 08:41 Mometasone 200 Mcg/Formoterol 5 Mcg 120 Puff Inhaler INH Not Given BID-RT ELYSE Polyethylene Glycol 17 gm 07/30/20 09:00 07/31/20 08:41 Polyethylene Glycol 3350 17 Gm Packet PO 17 gm DAILY ELYSE Administration Prednisone 20 mg 07/31/20 08:00 07/31/20 08:42 Prednisone 20 Mg Tab PO 20 mg QAM-WM ELYSE Administration Risperidone 0.25 mg 07/28/20 09:00 07/31/20 08:42 Risperidone 0.25 Mg Tab PO 0.25 mg BID ELYSE Administration Rosuvastatin Calcium 20 mg 07/30/20 09:00 07/31/20 08:42 Rosuvastatin 20 Mg Tab PO 20 mg DAILY ELSYE Administration Sodium Chloride 10 ml 07/24/20 21:00 07/31/20 08:41 Flush - Normal Saline 10 Ml Syringe IVF 10 ml Q12HR ELYSE Administration Sodium Chloride 10 ml 07/24/20 19:45 07/30/20 06:36 Flush - Normal Saline 10 Ml Syringe IVF 10 ml PRN PRN Administration Saline Flush - Exam General Appearance: NAD, awake alert Eye: PERRL, anicteric sclera ENT: normocephalic atraumatic, no oropharyngeal lesions Neck: supple, symmetric, no JVD, no thyromegaly Heart: RRR, no murmur, no gallops Respiratory: no wheezes, no rales, no ronchi Respiratory - other findings: Coarse breath sound Gastrointestinal: soft, non-tender, non-distended, normal bowel sounds Extremities: no cyanosis, no clubbing Skin: normal turgor, no lesions Neurological: no new deficit Musculoskeletal: normal tone, normal strength Psychiatric: normal affect, normal behavior Hosp A/P (1) COVID-19 virus infection Code(s): U07.1 - COVID-19 Status: Acute (2) Elevated LFTs Code(s): R79.89 - OTHER SPECIFIED ABNORMAL FINDINGS OF BLOOD CHEMISTRY Status: Acute (3) Elevated d-dimer Code(s): R79.89 - OTHER SPECIFIED ABNORMAL FINDINGS OF BLOOD CHEMISTRY Status: Acute (4) NSTEMI (non-ST elevated myocardial infarction) Code(s): I21.4 - NON-ST ELEVATION (NSTEMI) MYOCARDIAL INFARCTION Status: Acute (5) History of traumatic brain injury Code(s): Z87.820 - PERSONAL HISTORY OF TRAUMATIC BRAIN INJURY Status: Chronic (6) Hyperlipidemia Code(s): E78.5 - HYPERLIPIDEMIA, UNSPECIFIED Status: Chronic (7) Hypertension Code(s): I10 - ESSENTIAL (PRIMARY) HYPERTENSION Status: Chronic Qualifiers: Hypertension type: essential hypertension Qualified Code(s): I10 - Essential (primary) hypertension (8) Septic shock Code(s): A41.9 - SEPSIS, UNSPECIFIED ORGANISM; R65.21 - SEVERE SEPSIS WITH SEPTIC SHOCK Status: Suspected (9) MINA (acute kidney injury) Code(s): N17.9 - ACUTE KIDNEY FAILURE, UNSPECIFIED Status: Resolved (10) Acute respiratory failure with hypoxia Code(s): J96.01 - ACUTE RESPIRATORY FAILURE WITH HYPOXIA Status: Resolved - Plan old records reviewed/req, continue antibiotics, PT/OT, speech therapy, respiratory therapy S/p extubation on July 27, his mental status is slowly improving, his LFTs also continue to improve, I tried to reach out patient's family member but no response on phone, will try later again, currently on Omnicef, continue to wean off oxygen as tolerated, PT OT and speech therapy, discharge planning, discont inue IV fluid
[2020-07-31] MEDS ORDERED: Calcium Carbonate 500 MG ChewTAB PO PRN (12:34)
[2020-07-31] MEDS ORDERED: Sodium Chloride 0.65% Nasal 44 ML BOT EA NARE PRN (12:34)
[2020-07-31] MEDS ORDERED: Senokot S 8.6-50 MG TAB PO PRN (12:34)
[2020-07-31] MEDS ORDERED: Loperamide HCl 2 MG CAP PO PRN (12:34)
[2020-07-31] MEDS ORDERED: Ondansetron PF 4 MG/2 ML Vial IVP PRN (12:34)
[2020-07-31] MEDS ORDERED: Benzonatate 100 MG CAP PO PRN (12:34)
[2020-07-31] MEDS ORDERED: Ondansetron ODT 4 MG TAB PO PRN (12:34)
[2020-07-31] MEDS ORDERED: Cepastat Lozenges 1 LOZ PO PRN (12:34)
[2020-07-31] MEDS ORDERED: Loratadine 10 MG TAB PO PRN (12:34)
[2020-07-31] MEDS ORDERED: hydrALAZINE 20 MG/ML VIAL SLOW IVP PRN (12:34)
--- NOTE | 2020-07-31 13:13 | EKG ---
Test Reason : Blood Pressure : / mmHG Vent. Rate : 110 BPM Atrial Rate : 110 BPM P-R Int : 126 ms QRS Dur : 084 ms QT Int : 340 ms P-R-T Axes : 080 007 063 degrees QTc Int : 460 ms Sinus tachycardia Possible Inferior infarct , age undetermined Abnormal ECG Confirmed by JAKE BOSWELL ([id number]), editorial clerk BRENDA ROSSI ([id number]) on 07/31/2020 1:13:04 PM Referred By: Confirmed By:JAKE BOSWELL
[2020-08-01 03:48] LABS: ALT (SGPT) 537 U/L (8-55); AST (SGOT) 73 U/L (5-34); Alkaline Phosphatase 115 U/L (40-110); Anion Gap 11 mmol/L (10-20); BUN (Urea Nitrogen) 25 mg/dL (8.4-25.7); Calc. Creatinine Clearance 117 mL/min (70-130); Carbon Dioxide 26 mmol/L (22-29); Chloride 105 mmol/L (98-107); Estimated GFR-MDRD Greater than 90; Globulin 2.8 g/dL (2.4-3.5); Glucose 106 mg/dL (70-105); Potassium 3.3 mmol/L (3.5-5.1); Protein, Total 5.8 g/dL (6.0-8.3); Sodium 139 mmol/L (136-145)
[2020-08-01 05:47] LABS: #Eosinphils 0.1 thou/uL (0.0-0.7); #Lymphocytes 0.7 thou/uL (1.20-3.40); #Monocytes 0.3 thou/uL (0.11-0.59); #Neutrophils 5.2 thou/uL (1.40-6.50); %Basophils 0.1 % (0.0-1.0); %Eosinophils 1.1 % (0.0-10.0); %Lymphocytes 11.3 % (21.0-51.0); %Monocytes 4.7 % (0.0-10.0); %Neutrophils 82.8 % (42.0-75.0); Hemoglobin 16.3 g/dL (14.0-18.0); Mean Corpuscular HGB CONC 34.4 g/dL (32.0-36.0); Mean Corpuscular Hemoglobin 31.5 pg (27.0-31.0); Mean Corpuscular Volume 91.4 fL (78.0-98.0); Mean Platelet Volume 8.5 fL (7.4-10.4); Platelet Count 169 thou/uL (130-400); RBC Distribution Width 12.6 % (11.5-14.5); Red Blood Cell (RBC) Count 5.18 mill/uL (4.70-6.10); White Blood Cell (WBC) Count 6.3 thou/uL (4.8-10.8)
[2020-08-01] MEDS ORDERED: Potassium Chloride 20 MEQ TAB PO SCH (08:45)
[2020-08-01] MEDS: Cefdinir 300 MG CAP PO SCH ×2 (09:24→20:31)
[2020-08-01] MEDS: Clopidogrel Bisulfate 75 MG TAB PO SCH (09:25)
[2020-08-01] MEDS: predniSONE 20 MG TAB PO SCH (09:25)
[2020-08-01] MEDS: risperiDONE 0.25 MG TAB PO SCH ×2 (09:25→20:31)
[2020-08-01] MEDS: Lisinopril 5 MG TAB PO SCH (09:25)
[2020-08-01] MEDS: Aspirin Chewable 81 MG TAB PO SCH (09:25)
[2020-08-01] MEDS: Rosuvastatin 20 MG TAB PO SCH (09:26)
[2020-08-01] MEDS: Famotidine 20 MG TAB PO SCH ×2 (09:26→20:31)
[2020-08-01] MEDS: Multivitamin W/ Minerals 1 TAB PO SCH (09:26)
[2020-08-01] MEDS: Polyethylene Glycol 3350 17 GM Packet PO SCH (09:26)
[2020-08-01] MEDS: Metoprolol Tartrate 25 MG TAB PO SCH ×2 (09:26→20:31)
[2020-08-01] MEDS: Folic Acid 1 MG TAB PO SCH (09:26)
[2020-08-01] MEDS: FLUoxetine HCl 20 MG CAP PO SCH (09:26)
[2020-08-01] MEDS: Lacosamide 50 mg Tablet PO SCH ×2 (09:27→20:56)
[2020-08-01] MEDS: Mometasone 200 MCG/Formoterol 5 MCG 120 PUFF INHALER INH SCH ×2 (09:27→21:59)
--- NOTE | 2020-08-01 11:49 | PRG ---
DATE OF SERVICE: 08/01/2020 SUBJECTIVE: Ebenezer Farr is a 55-year-old gentleman who is less encephalopathic. OBJECTIVE: VITAL SIGNS: Temperature is 98, saturations are 97% on 2 L, pulse 99, blood pressure 139/80. CHEST: No wheezing, no crackles. CARDIAC: Normal S1, S2. No gallops. ABDOMEN: No masses. LABORATORY DATA: Shows decreasing liver function profile. ASSESSMENT: Mcmanus positive pneumonia; traumatic head injury; encephalopathy, improved; abnormal liver function. PLAN: Antibiotic, steroids, low-dose risperidone, eventually placement. Job ID: [id number]
--- NOTE | 2020-08-01 12:10 | PDOC.HOSPP ---
- Subjective Encounter Date: 08/01/20 Encounter Time: 10:15 Subjective: Patient seen and examined. No new complaints. No overnight events - Objective Vital Signs & Weight: Vital Signs (12 hours) Temp Pulse Ox 08/01/20 08:00 98.9 F 98 08/01/20 06:00 98.4 F 08/01/20 04:00 99.6 F Weight Admit Weight 186 lb Weight 187 lb 4.8 oz Most Recent Monitor Data Heart Rate from ECG 91 NIBP 139/80 NIBP BP-Mean 99 Respiration from ECG 22 SpO2 83 I&O: 07/31/20 08/01/20 08/02/20 06:59 06:59 06:59 Intake Total 2440 1260 Output Total 2270 1050 Balance 170 210 Result Diagrams: 08/01/20 03:04 08/01/20 03:04 Hospitalist ROS - Review of Systems ROS unobtainable: due to mental status - Medication Medications: Active Medications Generic Name Dose Route Start Last Admin Trade Name Freq PRN Reason Stop Dose Admin Aspirin 81 mg 07/30/20 09:00 08/01/20 09:25 Aspirin Chewable 81 Mg Tab PO 81 mg DAILY ELYSE Administration Cefdinir 300 mg 07/30/20 21:00 08/01/20 09:24 Cefdinir 300 Mg Cap PO 08/04/20 21:01 300 mg BID ELYSE Administration Clopidogrel Bisulfate 75 mg 07/30/20 09:00 08/01/20 09:25 Clopidogrel Bisulfate 75 Mg Tab PO 75 mg DAILY ELYSE Administration Famotidine 20 mg 07/27/20 09:00 08/01/20 09:26 Famotidine 20 Mg Tab PO 20 mg BID ELYSE Administration Fluoxetine HCl 20 mg 07/30/20 09:00 08/01/20 09:26 Fluoxetine Hcl 20 Mg Cap PO 20 mg DAILY ELYSE Administration Folic Acid 1 mg 07/30/20 09:00 08/01/20 09:26 Folic Acid 1 Mg Tab PO 1 mg DAILY ELYSE Administration Ibuprofen 400 mg 07/30/20 11:56 07/30/20 13:48 Ibuprofen 100 Mg/5 Ml Udcup PO 400 mg Q8H PRN Administration fever/moderate pain (4-6) Iron/Minerals/Multivitamins 1 tab 07/30/20 09:00 08/01/20 09:26 Multivitamin W/ Minerals 1 Tab PO 1 tab DAILY ELYSE Administration Lacosamide 200 mg 07/30/20 09:00 08/01/20 09:27 Lacosamide 50 Mg Tablet PO 200 mg BID LEYSE Administration Lisinopril 5 mg 07/30/20 09:00 08/01/20 09:25 Lisinopril 5 Mg Tab PO 5 mg DAILY ELYSE Administration Lorazepam 2 mg 07/24/20 09:15 07/28/20 09:28 Lorazepam 2 Mg/Ml Vial SLOW IVP 08/23/20 09:15 2 mg Q1H PRN Administration Breakthrough agitation Metoprolol Tartrate 25 mg 07/30/20 09:00 08/01/20 09:26 Metoprolol Tartrate 25 Mg Tab PO 25 mg BID ELYSE Administration Mometasone Furoate/Formoterol Fumar 2 puff 07/26/20 18:30 08/01/20 09:27 Mometasone 200 Mcg/Formoterol 5 Mcg 120 Puff Inhaler INH Not Given BID-RT ELYSE Polyethylene Glycol 17 gm 07/30/20 09:00 08/01/20 09:26 Polyethylene Glycol 3350 17 Gm Packet PO 17 gm DAILY ELYSE Administration Prednisone 20 mg 07/31/20 08:00 08/01/20 09:25 Prednisone 20 Mg Tab PO 20 mg QAM-WM ELYSE Administration Rosuvastatin Calcium 20 mg 07/30/20 09:00 08/01/20 09:26 Rosuvastatin 20 Mg Tab PO 20 mg DAILY ELYSE Administration Sodium Chloride 10 ml 07/24/20 21:00 08/01/20 09:27 Flush - Normal Saline 10 Ml Syringe IVF 10 ml Q12HR ELYSE Administration Sodium Chloride 10 ml 07/24/20 19:45 07/30/20 06:36 Flush - Normal Saline 10 Ml Syringe IVF 10 ml PRN PRN Administration Saline Flush - Exam General Appearance: NAD, ill appearing Eye: PERRL, anicteric sclera ENT: normocephalic atraumatic, no oropharyngeal lesions Neck: supple, symmetric, no JVD Heart: RRR, no murmur, no gallops, no rubs Respiratory: no wheezes, no rales, no ronchi Gastrointestinal: soft, non-tender, non-distended, normal bowel sounds Gastrointestinal - other findings: PEG tube in place Extremities: no cyanosis, no clubbing Skin: normal turgor, no lesions Neurological: no new deficit, hemiplegia Musculoskeletal: normal tone, normal strength Psychiatric: normal affect Hosp A/P (1) COVID-19 virus infection Code(s): U07.1 - COVID-19 Status: Acute (2) Elevated LFTs Code(s): R79.89 - OTHER SPECIFIED ABNORMAL FINDINGS OF BLOOD CHEMISTRY Status: Acute (3) Elevated d-dimer Code(s): R79.89 - OTHER SPECIFIED ABNORMAL FINDINGS OF BLOOD CHEMISTRY Status: Acute (4) NSTEMI (non-ST elevated myocardial infarction) Code(s): I21.4 - NON-ST ELEVATION (NSTEMI) MYOCARDIAL INFARCTION Status: Acute (5) History of traumatic brain injury Code(s): Z87.820 - PERSONAL HISTORY OF TRAUMATIC BRAIN INJURY Status: Chronic (6) Hyperlipidemia Code(s): E78.5 - HYPERLIPIDEMIA, UNSPECIFIED Status: Chronic (7) Hypertension Code(s): I10 - ESSENTIAL (PRIMARY) HYPERTENSION Status: Chronic Qualifiers: Hypertension type: essential hypertension Qualified Code(s): I10 - Essential (primary) hypertension (8) Septic shock Code(s): A41.9 - SEPSIS, UNSPECIFIED ORGANISM; R65.21 - SEVERE SEPSIS WITH SEPTIC SHOCK Status: Suspected (9) MINA (acute kidney injury) Code(s): N17.9 - ACUTE KIDNEY FAILURE, UNSPECIFIED Status: Resolved (10) Acute respiratory failure with hypoxia Code(s): J96.01 - ACUTE RESPIRATORY FAILURE WITH HYPOXIA Status: Resolved - Plan old records reviewed/req, plan discussed w/ family, PT/OT Overall patient is back to his baseline level, I have spoken to patient's medical power of family law attorney and updated about patient's current condition His laboratory parameters are improving We will transfer him to medical floor Continue PT OT Supportive care Medication reviewed Patient is a high risk for recurrent admission Medication change to oral including antibiotic Omnicef and steroid prednisone
[2020-08-01] MEDS: Diabetic Tussin 200 MG/10 ML UDCUP PO PRN (20:32)
[2020-08-02 05:44] LABS: ALT (SGPT) 364 U/L (8-55); AST (SGOT) 58 U/L (5-34); Alkaline Phosphatase 117 U/L (40-110); Anion Gap 12 mmol/L (10-20); BUN (Urea Nitrogen) 27 mg/dL (8.4-25.7); Bilirubin, Total 1.4 mg/dL (0.2-1.2); Calc. Creatinine Clearance 118 mL/min (70-130); Calcium 8.2 mg/dL (7.8-10.44); Carbon Dioxide 26 mmol/L (22-29); Chloride 108 mmol/L (98-107); Estimated GFR-MDRD Greater than 90; Globulin 2.9 g/dL (2.4-3.5); Glucose 103 mg/dL (70-105); Potassium 3.8 mmol/L (3.5-5.1); Protein, Total 5.9 g/dL (6.0-8.3); Sodium 142 mmol/L (136-145)
[2020-08-02] MEDS: Mometasone 200 MCG/Formoterol 5 MCG 120 PUFF INHALER INH SCH ×2 (06:34→17:40)
[2020-08-02 07:14] LABS: #Eosinphils 0.1 thou/uL (0.0-0.7); #Lymphocytes 1.4 thou/uL (1.20-3.40); #Monocytes 0.6 thou/uL (0.11-0.59); #Neutrophils 7.8 thou/uL (1.40-6.50); %Basophils 0.4 % (0.0-1.0); %Eosinophils 1.1 % (0.0-10.0); %Lymphocytes 14.3 % (21.0-51.0); %Monocytes 6.2 % (0.0-10.0); %Neutrophils 77.9 % (42.0-75.0); Hemoglobin 13.8 g/dL (14.0-18.0); Mean Corpuscular HGB CONC 33.5 g/dL (32.0-36.0); Mean Corpuscular Hemoglobin 31.2 pg (27.0-31.0); Mean Platelet Volume 7.9 fL (7.4-10.4); Platelet Count 259 thou/uL (130-400); RBC Distribution Width 12.4 % (11.5-14.5); Red Blood Cell (RBC) Count 4.42 mill/uL (4.70-6.10)
[2020-08-02] MEDS: Polyethylene Glycol 3350 17 GM Packet PO SCH (07:52)
[2020-08-02] MEDS: Lacosamide 50 mg Tablet PO SCH ×2 (07:52→21:09)
[2020-08-02] MEDS: predniSONE 20 MG TAB PO SCH (07:53)
[2020-08-02] MEDS: Folic Acid 1 MG TAB PO SCH (07:53)
[2020-08-02] MEDS: Aspirin Chewable 81 MG TAB PO SCH (07:53)
[2020-08-02] MEDS: Famotidine 20 MG TAB PO SCH ×2 (07:53→21:08)
[2020-08-02] MEDS: Rosuvastatin 20 MG TAB PO SCH (07:53)
[2020-08-02] MEDS: Multivitamin W/ Minerals 1 TAB PO SCH (07:54)
[2020-08-02] MEDS: Clopidogrel Bisulfate 75 MG TAB PO SCH (07:54)
[2020-08-02] MEDS: Cefdinir 300 MG CAP PO SCH ×2 (07:54→21:08)
[2020-08-02] MEDS: FLUoxetine HCl 20 MG CAP PO SCH (07:54)
[2020-08-02] MEDS: Lisinopril 5 MG TAB PO SCH (10:57)
[2020-08-02] MEDS: Metoprolol Tartrate 25 MG TAB PO SCH (10:57)
--- NOTE | 2020-08-02 11:23 | PDOC.HOSPP ---
- Subjective Encounter Date: 08/02/20 Encounter Time: 07:40 Subjective: Patient seen and examined bedside today, no overnight event, patient blood pressure runs on lower side, - Objective Vital Signs & Weight: Vital Signs (12 hours) Temp Pulse Resp BP Pulse Ox 08/02/20 11:01 98.4 F 104 H 16 104/70 100 08/02/20 10:57 92 08/02/20 08:00 98.1 F 92 18 106/72 98 08/02/20 04:00 98.1 F 67 18 120/78 99 08/01/20 23:30 98.4 F 68 18 102/66 100 Weight Admit Weight 186 lb Weight 187 lb 6.287 oz Most Recent Monitor Data Heart Rate from ECG 91 NIBP 139/80 NIBP BP-Mean 99 Respiration from ECG 22 SpO2 100 I&O: 08/01/20 08/02/20 08/03/20 06:59 06:59 06:59 Intake Total 1260 500 Output Total 1050 1750 Balance 210 -1250 Result Diagrams: 08/02/20 04:55 08/02/20 04:55 Hospitalist ROS - Review of Systems ROS unobtainable: due to mental status - Medication Medications: Active Medications Generic Name Dose Route Start Last Admin Trade Name Freq PRN Reason Stop Dose Admin Aspirin 81 mg 07/30/20 09:00 08/02/20 07:53 Aspirin Chewable 81 Mg Tab PO 81 mg DAILY ELYSE Administration Cefdinir 300 mg 07/30/20 21:00 08/02/20 07:54 Cefdinir 300 Mg Cap PO 08/04/20 21:01 300 mg BID ELYSE Administration Clopidogrel Bisulfate 75 mg 07/30/20 09:00 08/02/20 07:54 Clopidogrel Bisulfate 75 Mg Tab PO 75 mg DAILY ELYSE Administration Famotidine 20 mg 07/27/20 09:00 08/02/20 07:53 Famotidine 20 Mg Tab PO 20 mg BID ELYSE Administration Fluoxetine HCl 20 mg 07/30/20 09:00 08/02/20 07:54 Fluoxetine Hcl 20 Mg Cap PO 20 mg DAILY ELYSE Administration Folic Acid 1 mg 07/30/20 09:00 08/02/20 07:53 Folic Acid 1 Mg Tab PO 1 mg DAILY ELYSE Administration Guaifenesin 200 mg 07/31/20 12:34 08/01/20 20:32 Diabetic Tussin 200 Mg/10 Ml Udcup PO 200 mg Q4H PRN Administration Cough Ibuprofen 400 mg 07/30/20 11:56 07/30/20 13:48 Ibuprofen 100 Mg/5 Ml Udcup PO 400 mg Q8H PRN Administration fever/moderate pain (4-6) Iron/Minerals/Multivitamins 1 tab 07/30/20 09:00 08/02/20 07:54 Multivitamin W/ Minerals 1 Tab PO 1 tab DAILY ELYSE Administration Lacosamide 200 mg 07/30/20 09:00 08/02/20 07:52 Lacosamide 50 Mg Tablet PO 200 mg BID ELYSE Administration Lorazepam 2 mg 07/24/20 09:15 07/28/20 09:28 Lorazepam 2 Mg/Ml Vial SLOW IVP 08/23/20 09:15 2 mg Q1H PRN Administration Breakthrough agitation Mometasone Furoate/Formoterol Fumar 2 puff 07/26/20 18:30 08/02/20 06:34 Mometasone 200 Mcg/Formoterol 5 Mcg 120 Puff Inhaler INH 2 puff BID-RT ELYSE Administration Polyethylene Glycol 17 gm 07/30/20 09:00 08/02/20 07:52 Polyethylene Glycol 3350 17 Gm Packet PO 17 gm DAILY ELYSE Administration Prednisone 20 mg 07/31/20 08:00 08/02/20 07:53 Prednisone 20 Mg Tab PO 20 mg QAM-WM ELYSE Administration Risperidone 0.25 mg 08/01/20 21:00 08/01/20 20:31 Risperidone 0.25 Mg Tab PO 0.25 mg HS ELYSE Administration Rosuvastatin Calcium 20 mg 07/30/20 09:00 08/02/20 07:53 Rosuvastatin 20 Mg Tab PO 20 mg DAILY ELYSE Administration Sodium Chloride 10 ml 07/24/20 21:00 08/02/20 10:59 Flush - Normal Saline 10 Ml Syringe IVF 10 ml Q12HR ELYSE Administration Sodium Chloride 10 ml 07/24/20 19:45 07/30/20 06:36 Flush - Normal Saline 10 Ml Syringe IVF 10 ml PRN PRN Administration Saline Flush - Exam General Appearance: NAD, awake alert Eye: PERRL, anicteric sclera ENT: normocephalic atraumatic, no oropharyngeal lesions Neck: symmetric, no JVD Heart: RRR, no murmur, no gallops, no rubs Respiratory: no wheezes, no rales, no ronchi Gastrointestinal: soft, non-distended, normal bowel sounds Gastrointestinal - other findings: PEG tube in place Extremities: no clubbing, no edema Skin: normal turgor, no lesions Neurological: no new deficit Musculoskeletal: normal tone, normal strength Psychiatric: normal affect Hosp A/P (1) COVID-19 virus infection Code(s): U07.1 - COVID-19 Status: Acute (2) Acute respiratory failure with hypoxia Code(s): J96.01 - ACUTE RESPIRATORY FAILURE WITH HYPOXIA Status: Resolved (3) Elevated LFTs Code(s): R79.89 - OTHER SPECIFIED ABNORMAL FINDINGS OF BLOOD CHEMISTRY Status: Acute (4) Elevated d-dimer Code(s): R79.89 - OTHER SPECIFIED ABNORMAL FINDINGS OF BLOOD CHEMISTRY Status: Acute (5) NSTEMI (non-ST elevated myocardial infarction) Code(s): I21.4 - NON-ST ELEVATION (NSTEMI) MYOCARDIAL INFARCTION Status: Acute (6) History of traumatic brain injury Code(s): Z87.820 - PERSONAL HISTORY OF TRAUMATIC BRAIN INJURY Status: Chronic (7) Hyperlipidemia Code(s): E78.5 - HYPERLIPIDEMIA, UNSPECIFIED Status: Chronic (8) Hypertension Code(s): I10 - ESSENTIAL (PRIMARY) HYPERTENSION Status: Chronic Qualifiers: Hypertension type: essential hypertension Qualified Code(s): I10 - Essential (primary) hypertension (9) Septic shock Code(s): A41.9 - SEPSIS, UNSPECIFIED ORGANISM; R65.21 - SEVERE SEPSIS WITH SEPTIC SHOCK Status: Resolved (10) MINA (acute kidney injury) Code(s): N17.9 - ACUTE KIDNEY FAILURE, UNSPECIFIED Status: Resolved - Plan old records reviewed/req, continue antibiotics Today we will discontinue his blood pressure medication We will monitor his hemodynamics If his vitals remained stable by tomorrow then will consider discharging him back to long term tomorrow Overall patient's condition is same and appears to be baseline
--- NOTE | 2020-08-02 11:25 | PRG ---
DATE OF SERVICE: 08/02/2020 SUBJECTIVE: Ebenezer Farr with traumatic head injury. The patient with coronavirus pneumonia, respiratory failure, extubated. He is doing well. OBJECTIVE: VITAL SIGNS: Temperature 98, pulse 92, saturations 98% on 2 L, blood pressure 106/72. CHEST: No wheezing. No crackles. CARDIAC: Normal S1 and S2. No gallops. ABDOMEN: No masses. Renal function is back to normal. IMPRESSION: Mcmanus positive pneumonia, encephalopathy, baseline head trauma. PLAN: He is ready to be discharged back to the correction he came from. At this stage, not much else to offer. He is on his home medication. Job ID: [id number]
[2020-08-02 14:17] VITALS: BMI 31.1
[2020-08-02] MEDS: risperiDONE 0.25 MG TAB PO SCH (21:08)
[2020-08-02] MEDS: Diabetic Tussin 200 MG/10 ML UDCUP PO PRN (21:08)
[2020-08-03] MEDS: Mometasone 200 MCG/Formoterol 5 MCG 120 PUFF INHALER INH SCH ×2 (05:54→17:36)
[2020-08-03] MEDS: Clopidogrel Bisulfate 75 MG TAB PO SCH (08:52)
[2020-08-03] MEDS: Diabetic Tussin 200 MG/10 ML UDCUP PO PRN (08:52)
[2020-08-03] MEDS: Multivitamin W/ Minerals 1 TAB PO SCH (08:52)
[2020-08-03] MEDS: Aspirin Chewable 81 MG TAB PO SCH (08:52)
[2020-08-03] MEDS: Polyethylene Glycol 3350 17 GM Packet PO SCH (08:52)
[2020-08-03] MEDS: predniSONE 20 MG TAB PO SCH (08:53)
[2020-08-03] MEDS: Cefdinir 300 MG CAP PO SCH (08:53)
[2020-08-03] MEDS: Rosuvastatin 20 MG TAB PO SCH (08:53)
[2020-08-03] MEDS: FLUoxetine HCl 20 MG CAP PO SCH (08:53)
[2020-08-03] MEDS: Folic Acid 1 MG TAB PO SCH (08:53)
[2020-08-03] MEDS: Famotidine 20 MG TAB PO SCH (08:56)
[2020-08-03] MEDS: Lacosamide 50 mg Tablet PO SCH (08:57)
[2020-08-03 09:20] VITALS: BP 123/77; TEMP 98
--- NOTE | 2020-08-03 10:24 | PRG ---
DATE OF SERVICE: 08/03/2020 SUBJECTIVE: This morning, he is better. OBJECTIVE: VITAL SIGNS: Temperature 98, pulse , respirations 18, saturations 97 on 2 L, and blood pressure . CHEST: No wheezing. No crackles. CARDIAC: Normal S1 and S2. No gallops. ABDOMEN: No masses. ASSESSMENT AND PLAN: Respiratory failure and garcia positive pneumonia, stable. He is ready to be discharged home. Taper steroids over 10 days slowly. Antibiotics as prescribed. Job ID: [id number]
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
[2020-08-04 16:57] LABS: EliA Vaculitis New Method **** NEW METHOD ****; Mitochondrial Ab 1.6 U/mL (<4 Negative)
== END 2020-08-03 20:30 | DRG 871 ==
LOC: ERS 06:28 → SUATTDRO 06:28 → ERHOLD 08:25 → CCU 15:25 → IMCU/EMU 07-29 18:19 → T4-B 08-01 14:51
PROVIDERS: ADMIT Internal Medicine; ATTEND Internal Medicine
PROC: 8E0ZXY6 Isolation (ICD-10-PCS; principal; 2020-07-24)
PROC: 02HV33Z Insertion of Infusion Device into Superior Vena Cava, Percutaneous Approach (ICD-10-PCS; 2020-07-24)
PROC: 3E043XZ Introduction of Vasopressor into Central Vein, Percutaneous Approach (ICD-10-PCS; 2020-07-24)
PROC: 0BH17EZ Insertion of Endotracheal Airway into Trachea, Via Natural or Artificial Opening (ICD-10-PCS; 2020-07-24)
PROC: 5A1945Z Respiratory Ventilation, 24-96 Consecutive Hours (ICD-10-PCS; 2020-07-24)
DX: A41.89 Other specified sepsis (principal); R65.21 Severe sepsis with septic shock; I21.A1 Myocardial infarction type 2; J96.21 Acute and chronic respiratory failure with hypoxia; U07.1 COVID-19; J12.89 Other viral pneumonia; K72.00 Acute and subacute hepatic failure without coma; N17.9 Acute kidney failure, unspecified; E87.2 Acidosis; G93.40 Encephalopathy, unspecified; E78.5 Hyperlipidemia, unspecified; I10 Essential (primary) hypertension; K76.1 Chronic passive congestion of liver; D69.6 Thrombocytopenia, unspecified; B18.2 Chronic viral hepatitis C; Z87.820 Personal history of traumatic brain injury; Z87.891 Personal history of nicotine dependence; Z78.1 Physical restraint status; Z98.1 Arthrodesis status; R13.12 Dysphagia, oropharyngeal phase
CPT/HCPCS: 31500; 36415; 36556; 36600; 51702; 71045; 76705; 80048; 80053; 80076; 80202; 80307; 81003; 82105; 82553; 82728; 82805; 83516; 83540; 83550; 83605; 83615; 83880; 84484; 85025; 85379; 85610; 85730; 86140; 86704; 86705; 86706; 86707; 86709; 86803; 87040; 87086; 87340; 87350; 87522; 93005; 93010; 93970; 94003; 96365; 96366; 96368; 96372; 96375; 96376; 99292; J0171; J0692; J1630; J1644; J1720; J1953; J2060; J2920; J3010; J3370; J3490; J7030; J7050; J7070; J7512; P9045; S0028

== ENCOUNTER 2020-08-05 21:11 | Emergency (ER) | payer MEDICARE, MEDICAID ==
--- NOTE | 2020-08-05 22:12 | RAD ---
PORTABLE CHEST: Date: 08/05/2020 PROVIDED CLINICAL HISTORY: Cough. FINDINGS: Comparison with 07/29/2020. Cardiac and mediastinal silhouette is unchanged in appearance. No focal consolidation, pleural fluid, or pneumothorax apparent. IMPRESSION: No evidence for an acute cardiopulmonary process. POS: ROSANA
== END 2020-08-05 23:40 ==
LOC: ERS 21:11
DX: U07.1 COVID-19 (principal); Z87.891 Personal history of nicotine dependence
CPT/HCPCS: 71045

== ENCOUNTER 2020-08-14 00:42 | Inpatient (IN) | payer MEDICARE, MEDICAID ==
[2020-08-14] MEDS ORDERED: Cefepime 2 GM VIAL ONE (01:17)
[2020-08-14] MEDS ORDERED: Vancomycin 1 GM/200 ML BAG ONE (01:17)
[2020-08-14 02:06] LABS: ALT (SGPT) 51 U/L (8-55); AST (SGOT) 51 U/L (5-34); Albumin 3.1 g/dL (3.5-5.0); Alkaline Phosphatase 112 U/L (40-110); Anion Gap 19 mmol/L (10-20); BUN (Urea Nitrogen) 89 mg/dL (8.4-25.7); Bilirubin, Total 0.6 mg/dL (0.2-1.2); Calc. Creatinine Clearance 0 mL/min (70-130); Carbon Dioxide 22 mmol/L (22-29); Chloride 122 mmol/L (98-107); Globulin 3.1 g/dL (2.4-3.5); Glucose 129 mg/dL (70-105); Protein, Total 6.2 g/dL (6.0-8.3); Sodium 159 mmol/L (136-145)
[2020-08-14] MEDS ORDERED: Norepinephrine 8 MG/0.9% NS 250 ML ONE (02:17)
[2020-08-14 02:21] LABS: #Eosinphils 0.2 thou/uL (0.0-0.7); #Lymphocytes 1.5 thou/uL (1.20-3.40); #Monocytes 0.9 thou/uL (0.11-0.59); #Neutrophils 9.4 thou/uL (1.40-6.50); %Basophils 0.3 % (0.0-1.0); %Eosinophils 1.4 % (0.0-10.0); %Lymphocytes 12.7 % (21.0-51.0); %Monocytes 7.5 % (0.0-10.0); %Neutrophils 78.1 % (42.0-75.0); Hemoglobin 10.4 g/dL (14.0-18.0); Mean Corpuscular HGB CONC 31.9 g/dL (32.0-36.0); Mean Corpuscular Hemoglobin 30.7 pg (27.0-31.0); Mean Corpuscular Volume 96.4 fL (78.0-98.0); Mean Platelet Volume 8.7 fL (7.4-10.4); Platelet Count 227 thou/uL (130-400); RBC Distribution Width 12.9 % (11.5-14.5); Red Blood Cell (RBC) Count 3.37 mill/uL (4.70-6.10)
[2020-08-14 02:29] LABS: Bacteria/HPF None Seen HPF (None Seen); Bilirubin Negative (Negative); Blood, Urine Negative (Negative); Clarity Turbid (Clear); Glucose, Urine (Dipstick) Normal (Negative); Ketone, Urine Negative (Negative); Leukocyte Negative Leu/uL (Negative); Nitrite Negative (Negative); Protein, Urine (Dipstick) 70 mg/dL (Neg-Trace); RBC/HPF 0-3 HPF (0-3); Specific Gravity, Urine 1.028 (1.002-1.036); Squamous Epithelial 0-3 HPF (0-3); Transitional Epithelial 0-3 HPF (None Seen)
[2020-08-14 02:31] LABS: CKMB 7.2 ng/mL (0-6.6)
[2020-08-14] MEDS ORDERED: Lidocaine 1% w/Epinephrine 1:100K 20 ML VIAL ONE (04:23)
[2020-08-14] MEDS ORDERED: Lidocaine 1% PF 5 ML VIAL ONE (04:24)
[2020-08-14 05:13] LABS: Lactic Acid 1.5 mmol/L (0.5-2.2)
[2020-08-14] MEDS ORDERED: Ondansetron PF 4 MG/2 ML Vial IVP PRN (07:11)
[2020-08-14] MEDS ORDERED: Norepinephrine 8 MG/0.9% NS 250 ML IVPB PRN (07:11)
[2020-08-14] MEDS ORDERED: Acetaminophen 650 MG Suppository PR PRN (07:11)
--- NOTE | 2020-08-14 07:38 | CT ---
PRELIMINARY REPORT/DIRECT RADIOLOGY/EMERGENCY AFTER HOURS PROCEDURE: EXAM: CT Head Without Intravenous Contrast. CLINICAL HISTORY: AMS, Patient sent from [facility] the skilled nursing for hypotension. Onset of symptoms is unknown. Patient is normally ANO x2 but is only ANO x0 now and unable to provide any history at this time TECHNIQUE: Axial computed tomography images of the head/brain without intravenous contrast. COMPARISON: None provided. FINDINGS: BRAIN: No acute intraparenchymal hemorrhage. Diffuse brain parenchymal atrophy more pronounced in th e left cerebral hemisphere with periventricular and subcortical white matter hypodensities. No mass lesion. No CT evidence for acute territorial infarct. No midline shift or extra-axial collection . ORBITS: The orbits are unremarkable. SINUSES AND MASTOIDS: the paranasal sinuses and mastoid air cells are clear. SOFT TISSUES: No significant facial or scalp soft tissue swelling evident. No radiopaque foreign body is seen. BONES: No acute skull fracture. IMPRESSION: 1. No acute intracranial abnormality. 2. Diffuse brain parenchymal atrophy more pronounced in the left cerebral hemisphere with sequela of chronic small vessel ischemic disease. ELECTRONICALLY SIGNED BY: Ace Meyer DO Aug 14, 2020 4:00:45 AM RECONCILEMENT CLERK FINAL REPORT BRAIN CT WITHOUT CONTRAST: EMERGENCY AFTER HOURS EXAM: TIME: 3:35 AM. DATE: 08/14/2020. Atrophy and chronic white matter ischemic changes with some bilateral encephalomalacic changes and br ain volume loss worse in the left temporal region. Stable from 01/05/2020. This report is in agreement with the preliminary report. Transcribed Date/Time: 08/14/2020 7:52 AM
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
[2020-08-14] MEDS: Dextrose 5% in Water 1,000 ML IV SCH ×2 (08:50→15:32)
--- NOTE | 2020-08-14 09:00 | RAD ---
EXAM: Chest one view: HISTORY: Prior stroke, hypotensive COMPARISON: 08/05/2020 FINDINGS: Increased markings bilaterally evidence for some bilateral vascular congestion which appears new from the prior study. Heart size: Within normal limits. Lungs: No confluent pneumonia. No pleural effusion. IMPRESSION: Evidence for bilateral vascular congestion since the prior study. Continued short-term follow-up.
[2020-08-14] MEDS: Heparin 5,000 UNITS/ML VIAL SC SCH ×3 (09:03→20:32)
[2020-08-14] MEDS: Famotidine/PF 20 mg/2ml Vial SLOW IVP SCH (09:03)
[2020-08-14 09:06] LABS: Anion Gap 19 mmol/L (10-20); BUN (Urea Nitrogen) 78 mg/dL (8.4-25.7); Calc. Creatinine Clearance 0 mL/min (70-130); Calcium 7.9 mg/dL (7.8-10.44); Carbon Dioxide 21 mmol/L (22-29); Chloride 122 mmol/L (98-107); Glucose 126 mg/dL (70-105); Potassium 3.5 mmol/L (3.5-5.1); Sodium 158 mmol/L (136-145)
--- NOTE | 2020-08-14 09:50 | ULT ---
RENAL ULTRASOUND: INDICATION: Acute kidney insufficiency. FINDINGS: The right kidney measures 10.5 cm length. The left kidney measures 10.2 cm length. No hydronephrosi s. No renal mass or cyst. Cortical echogenicity and cortical thickness appear normally maintained. The urinary bladder is contracted with Do catheter in place and not evaluated. IMPRESSION: Unremarkable renal ultrasound. POS: AGW
[2020-08-14] MEDS: levETIRAcetam in NS 500 MG in Premix Bag 1 BAG IVPB SCH ×2 (10:03→20:33)
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
--- NOTE | 2020-08-14 11:26 | RAD ---
EXAM: Chest one view: HISTORY: Follow-up hypotension COMPARISON: 08/14/2020 FINDINGS: Decreased inspiration. Heart size: Within normal limits. Lungs: Minimal linear parenchymal changes in the left infrahilar region but overall appearance is imp roved from prior study. No evidence for confluent lobar pneumonia, significant pleural effusion, acute edema, or pneumothorax , or other significant acute process. IMPRESSION: No significant acute intrathoracic disease.
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
[2020-08-14] MEDS ORDERED: FLU VACC QS2020-21(6MOS UP)/PF 60 MCG/0.5 ML SYRINGE IM ONE (12:15)
[2020-08-14] MEDS: Arformoterol 15 MCG/2 ML NEB NEB SCH (18:38)
[2020-08-14] MEDS: Budesonide 0.5 MG/2 ML NEB NEB SCH (18:39)
--- NOTE | 2020-08-14 18:53 | PDOC.BPN ---
- Brief Progress Note Encounter Date: 08/14/20 Encounter Time: 18:52 Called by RN earlier that pt's next of kin desires DNAR status, which was confirmed and documented. Status updated in the computer.
[2020-08-14 19:18] LABS: Anion Gap 14 mmol/L (10-20); BUN (Urea Nitrogen) 61 mg/dL (8.4-25.7); Calc. Creatinine Clearance 47 mL/min (70-130); Calcium 7.9 mg/dL (7.8-10.44); Carbon Dioxide 24 mmol/L (22-29); Chloride 120 mmol/L (98-107); Glucose 132 mg/dL (70-105); Potassium 3.2 mmol/L (3.5-5.1); Sodium 155 mmol/L (136-145)
[2020-08-15] MEDS: Dextrose 5% in Water 1,000 ML IV SCH ×3 (00:12→20:09)
[2020-08-15] MEDS: Cefepime 2 GM in Sodium Chloride 0.9% 100 ML IVPB SCH ×2 (01:17→13:16)
[2020-08-15] MEDS: Vancomycin 1 GM in Premix Bag 1 BAG IVPB SCH (02:04)
[2020-08-15 07:37] LABS: Chloride 117 mmol/L (98-107); Potassium 3.6 mmol/L (3.5-5.1); Sodium 151 mmol/L (136-145)
[2020-08-15 07:38] LABS: Glucose 114 mg/dL (70-105)
--- NOTE | 2020-08-15 07:38 | PDOC.HOSPP ---
- Subjective Encounter Date: 08/15/20 (f/u hypernatremia) Encounter Time: 07:36 Subjective: No overnight events reported by RN. Pt not speaking, does follow commands on left side. Levophed weaned off overnight. - Objective Vital Signs & Weight: Vital Signs (12 hours) Temp Pulse Ox 08/15/20 04:00 98.2 F 08/15/20 01:00 98.0 F 08/14/20 20:00 98.1 F 93 L Weight Weight 164 lb 3.91 oz Most Recent Monitor Data Heart Rate from ECG 95 NIBP 93/59 NIBP BP-Mean 70 Respiration from ECG 14 SpO2 100 I&O: 08/14/20 08/15/20 08/16/20 06:59 06:59 06:59 Intake Total 2906 Output Total 1215 Balance 1691 Result Diagrams: 08/14/20 01:35 08/14/20 18:49 EKG Reviewed by me: Yes (tele - sinus 90-100's, episodes of bigeminy) Hospitalist ROS - Medication Medications: Active Medications Generic Name Dose Route Start Last Admin Trade Name Freq PRN Reason Stop Dose Admin Arformoterol Tartrate 15 mcg 08/14/20 18:30 08/14/20 18:38 Arformoterol 15 Mcg/2 Ml Neb NEB 15 mcg BID-RT ELYSE Administration Budesonide 0.5 mg 08/14/20 18:30 08/14/20 18:39 Budesonide 0.5 Mg/2 Ml Neb NEB 0.5 mg BID-RT ELYSE Administration Famotidine 20 mg 08/14/20 09:00 08/14/20 09:03 Famotidine/Pf 20 Mg/2ml Vial SLOW IVP 20 mg Q24H ELYSE Administration Heparin Sodium (Porcine) 5,000 units 08/14/20 09:00 08/14/20 20:32 Heparin 5,000 Units/Ml Vial SC 5,000 units TID ELYSE Administration Cefepime HCl 2 gm/ Sodium 100 mls @ 200 mls/hr 08/15/20 01:30 08/15/20 01:17 Chloride IVPB 100 mls Q12H ELYSE Administration Dextrose/Water 1,000 mls @ 125 mls/hr 08/14/20 07:30 08/15/20 00:12 D5w IV 1,000 mls .Q8H ELYSE Administration Levetiracetam 500 mg/ Device 100 mls @ 200 mls/hr 08/14/20 09:00 08/14/20 20:33 IVPB 100 mls BID ELYSE Administration Vancomycin HCl 1 gm/ Device 200 mls @ 200 mls/hr 08/15/20 02:00 08/15/20 02:04 IVPB 200 mls 0200 ELYSE Administration Sodium Chloride 10 ml 08/14/20 21:00 08/14/20 20:33 Flush - Normal Saline 10 Ml Syringe IVF 10 ml Q12HR ELYSE Administration - Exam General Appearance: NAD Heart: RRR, no murmur Respiratory: no wheezes, no rales, no ronchi Gastrointestinal: soft, non-tender, non-distended, normal bowel sounds Extremities: no cyanosis, no clubbing, no edema Neurological - other findings: right sided neglect, no movement on right arm/leg Musculoskeletal - other findings: full movement of left arm Psychiatric - other findings: not speaking/answering questions Hosp A/P (1) Hypernatremia Code(s): E87.0 - HYPEROSMOLALITY AND HYPERNATREMIA Status: Acute (2) MINA (acute kidney injury) Code(s): N17.9 - ACUTE KIDNEY FAILURE, UNSPECIFIED Status: Acute (3) Septic shock Code(s): A41.9 - SEPSIS, UNSPECIFIED ORGANISM; R65.21 - SEVERE SEPSIS WITH SEPTIC SHOCK Status: Acute (4) Encephalopathy acute Code(s): G93.40 - ENCEPHALOPATHY, UNSPECIFIED Status: Acute (5) Seizure Code(s): R56.9 - UNSPECIFIED CONVULSIONS Status: Chronic (6) Anemia Code(s): D64.9 - ANEMIA, UNSPECIFIED Status: Acute Qualifiers: Anemia type: unspecified type Qualified Code(s): D64.9 - Anemia, unspecified (7) Elevated troponin Code(s): R77.8 - OTHER SPECIFIED ABNORMALITIES OF PLASMA PROTEINS Status: Acute - Plan Labs today have not resulted Hypernatremia - Appreciate Nephro consult - continue D5w until labs today resulted Concern of septic shock - appreciate Pulm consult - continue abx and follow cultures - tsh and cortisol levels pending MINA - await f/u results, improved yesterday with IVF Bigeminy - monitor Seizure d/o - IV keppra Anemia - monitor for gross bleeding Indeterminant troponin - attribute to current condition, at this time no indication for cardiac eval Pall care consult dvt prophy - heparin gi prophy - renally dosed famotidine code status updated yesterday to DNAR pt improved however has an overall poor prognosis. Will update family as they are available. Transfer to telemetry.
[2020-08-15 07:40] LABS: #Basophils 0.1 thou/uL (0.0-0.2); #Eosinphils 0.3 thou/uL (0.0-0.7); #Lymphocytes 1.8 thou/uL (1.20-3.40); #Monocytes 0.8 thou/uL (0.11-0.59); #Neutrophils 6.3 thou/uL (1.40-6.50); %Basophils 0.6 % (0.0-1.0); %Eosinophils 3.5 % (0.0-10.0); %Lymphocytes 19.6 % (21.0-51.0); %Monocytes 8.4 % (0.0-10.0); Anion Gap 18 mmol/L (10-20); Carbon Dioxide 20 mmol/L (22-29); Hemoglobin 9.3 g/dL (14.0-18.0); Mean Corpuscular HGB CONC 33.3 g/dL (32.0-36.0); Mean Corpuscular Hemoglobin 30.2 pg (27.0-31.0); Mean Corpuscular Volume 90.8 fL (78.0-98.0); Mean Platelet Volume 8.8 fL (7.4-10.4); Platelet Count 143 thou/uL (130-400); RBC Distribution Width 12.8 % (11.5-14.5); Red Blood Cell (RBC) Count 3.09 mill/uL (4.70-6.10); White Blood Cell (WBC) Count 9.3 thou/uL (4.8-10.8)
[2020-08-15 07:42] LABS: Calc. Creatinine Clearance 58 mL/min (70-130)
[2020-08-15 07:43] LABS: BUN (Urea Nitrogen) 56 mg/dL (8.4-25.7)
[2020-08-15] MEDS: Arformoterol 15 MCG/2 ML NEB NEB SCH ×2 (07:48→18:13)
[2020-08-15] MEDS: Budesonide 0.5 MG/2 ML NEB NEB SCH ×2 (07:49→18:13)
[2020-08-15] MEDS: levETIRAcetam in NS 500 MG in Premix Bag 1 BAG IVPB SCH ×2 (09:07→20:08)
[2020-08-15] MEDS: Famotidine/PF 20 mg/2ml Vial SLOW IVP SCH (09:07)
[2020-08-15] MEDS: Heparin 5,000 UNITS/ML VIAL SC SCH ×3 (09:07→20:09)
--- NOTE | 2020-08-15 10:18 | PRG ---
DATE OF SERVICE: 08/15/2020 SUBJECTIVE: The patient is doing better. He has been weaned off the Levophed drip. OBJECTIVE: VITAL SIGNS: His temperature is 98.2, pulse 106, blood pressure 116/71, and O2 saturation 100%. HEENT: Unremarkable. NECK: No adenopathy or JVD. LUNGS: Clear. CARDIAC: S1 and S2. Regular. ABDOMEN: Soft. EXTREMITIES: No edema. LABORATORY DATA: Sodium 151, potassium 3.6, chloride 117, CO2 of 20, BUN 56, creatinine 1.5, and glucose 114. Cortisol level was 17. White blood cell count 9.3, hematocrit 28.1, and platelet count 143. ASSESSMENT: 1. Profound volume depletion - improved hypotension after IV fluid administration. The patient is no longer vasopressor dependent. 2. Question of recurrent sepsis. PLAN: The patient is being transferred out to the telemetry floor. He will continue hydration. Continue antibiotics. Job ID: [id number]
--- NOTE | 2020-08-15 11:31 | PRG ---
DATE OF SERVICE: 08/15/2020 SUBJECTIVE: Mr. Farr is a 55-year-old male, who was admitted for mental status change and seen by the Renal Service for his acute kidney injury/hypernatremia. He has been given volume repletion as well as hypotonic solution. Serum sodium and renal function are slowly improving. The patient is more awake today. 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 No acute complaints today. No acute events noted last night. OBJECTIVE: VITAL SIGNS: Blood pressure 112/67, heart rate 98, respiratory rate 20, O2 saturation 97%. GENERAL: The patient is noted to be awake, but nonverbal, not in distress. SKIN: Adequate turgor. HEENT: He has pinkish, slightly pale conjunctivae. Anicteric sclerae. NECK: No neck mass. No carotid bruits. No JVD. CHEST: No deformities. LUNGS: Clear breath sounds. No wheezing. No crackles. HEART: Normal sinus rhythm. No murmur. No gallops. No rubs. ABDOMEN: Globular, soft, nontender. No masses. EXTREMITIES: No edema. NEUROLOGIC: The patient is nonverbal, decreased motor on the right side. MEDICATIONS: On August 15, 2020, were reviewed. LABORATORY DATA: On August 15, 2020; white count 9.3, hemoglobin 9.3. Sodium 151, potassium 3.6, chloride 117, carbon dioxide 20, BUN 56, creatinine 1.49, GFR 49 mL/minute, glucose 114, calcium 8.0. TSH is 0.3. Cortisol is 17. ASSESSMENT AND PLAN: 1. Hypernatremia secondary to free water deficit. Improving serum sodium with D5 water. We will continue current IV fluids at 125 mL/hour. 2. Acute kidney injury - superimposed hemodynamically-mediated renal dysfunction. Renal function after IV hydration has slowly been improving overtime. There is no indication for any dialytic intervention. Please note that the patient was on lisinopril before being admitted and currently it is also on hold. Chlorthalidone is also on hold. 3. Agree with current management. Recheck CBC and basic metabolic in a.m. Job ID: [id number]
[2020-08-16 01:40] LABS: Vancomycin, Trough 6.5 ug/mL
[2020-08-16] MEDS: Vancomycin 1 GM in Premix Bag 1 BAG IVPB SCH (01:51)
[2020-08-16] MEDS: Dextrose 5% in Water 1,000 ML IV SCH (01:51)
[2020-08-16] MEDS: Cefepime 2 GM in Sodium Chloride 0.9% 100 ML IVPB SCH (01:51)
[2020-08-16 04:30] LABS: Anion Gap 13 mmol/L (10-20); BUN (Urea Nitrogen) 33 mg/dL (8.4-25.7); Calc. Creatinine Clearance 77 mL/min (70-130); Calcium 7.8 mg/dL (7.8-10.44); Carbon Dioxide 24 mmol/L (22-29); Chloride 109 mmol/L (98-107); Glucose 113 mg/dL (70-105); Sodium 143 mmol/L (136-145)
[2020-08-16 04:38] LABS: Potassium 2.9 mmol/L (3.5-5.1)
[2020-08-16] MEDS: Potassium Chloride 20 MEQ in Premix Bag 1 BAG IVPB SCH ×2 (06:08→08:21)
[2020-08-16 06:15] VITALS: BMI 28.1
[2020-08-16] MEDS ORDERED: Electrolyte Replacement Protocol 1 EACH FS ONE (06:47)
--- NOTE | 2020-08-16 06:50 | PDOC.HOSPP ---
- Subjective Encounter Date: 08/16/20 (f/u hyponatremia) Encounter Time: 06:49 Subjective: No overnight events, pt able to speak a few words to the nurse. Is following commands on the left side. Able to mumble his name when asked. - Objective Vital Signs & Weight: Vital Signs (12 hours) Temp Pulse Ox 08/16/20 04:00 98.1 F 08/16/20 00:00 98.0 F 08/15/20 20:00 97.8 F 100 Weight Weight 175 lb 4.28 oz Most Recent Monitor Data Heart Rate from ECG 88 NIBP 100/72 NIBP BP-Mean 81 Respiration from ECG 22 SpO2 100 I&O: 08/14/20 08/15/20 08/16/20 06:59 06:59 06:59 Intake Total 2906 1848 Output Total 1215 1040 Balance 1691 808 Result Diagrams: 08/15/20 06:52 08/16/20 03:28 EKG Reviewed by me: Yes (tele - sinus 80's) Hospitalist ROS - Medication Medications: Active Medications Generic Name Dose Route Start Last Admin Trade Name Freq PRN Reason Stop Dose Admin Arformoterol Tartrate 15 mcg 08/14/20 18:30 08/15/20 18:13 Arformoterol 15 Mcg/2 Ml Neb NEB 15 mcg BID-RT ELYSE Administration Budesonide 0.5 mg 08/14/20 18:30 08/15/20 18:13 Budesonide 0.5 Mg/2 Ml Neb NEB 0.5 mg BID-RT ELYSE Administration Famotidine 20 mg 08/14/20 09:00 08/15/20 09:07 Famotidine/Pf 20 Mg/2ml Vial SLOW IVP 20 mg Q24H ELYSE Administration Heparin Sodium (Porcine) 5,000 units 08/14/20 09:00 08/15/20 20:09 Heparin 5,000 Units/Ml Vial SC 5,000 units TID ELYSE Administration Levetiracetam 500 mg/ Device 100 mls @ 200 mls/hr 08/14/20 09:00 08/15/20 20:08 IVPB 100 mls BID ELYSE Administration Potassium Chloride 20 meq/ 100 mls @ 50 mls/hr 08/16/20 05:45 08/16/20 06:08 Device IVPB 12/07/20 09:44 100 mls Q2H ELYSE Administration Sodium Chloride 10 ml 08/14/20 21:00 08/15/20 20:28 Flush - Normal Saline 10 Ml Syringe IVF 10 ml Q12HR ELYSE Administration - Exam General Appearance: NAD Heart: RRR, no murmur Respiratory: no wheezes, no ronchi Respiratory - other findings: faint rales at right base Gastrointestinal: soft, non-tender, non-distended, normal bowel sounds Musculoskeletal - other findings: no movement on right, and right sided neglect Psychiatric - other findings: more awake this morning and able to mumble name Hosp A/P (1) Hypernatremia Code(s): E87.0 - HYPEROSMOLALITY AND HYPERNATREMIA Status: Acute (2) MINA (acute kidney injury) Code(s): N17.9 - ACUTE KIDNEY FAILURE, UNSPECIFIED Status: Acute (3) Septic shock Code(s): A41.9 - SEPSIS, UNSPECIFIED ORGANISM; R65.21 - SEVERE SEPSIS WITH SEPTIC SHOCK Status: Resolved (4) Encephalopathy acute Code(s): G93.40 - ENCEPHALOPATHY, UNSPECIFIED Status: Acute (5) Seizure Code(s): R56.9 - UNSPECIFIED CONVULSIONS Status: Chronic (6) Anemia Code(s): D64.9 - ANEMIA, UNSPECIFIED Status: Acute Qualifiers: Anemia type: unspecified type Qualified Code(s): D64.9 - Anemia, unspecified (7) Elevated troponin Code(s): R77.8 - OTHER SPECIFIED ABNORMALITIES OF PLASMA PROTEINS Status: Acute - Plan Hypernatremia - resolved - Appreciate Nephro consult - change IVF to D5 1/2 NS with potassium Hypokalemia - replace - electrolyte replacement protocol - check magnesium level Concern of septic shock - unlikely with negative cultures - appreciate Pulm consult - d/c antibiotics MINA - resolved Bigeminy - less today Seizure d/o - IV keppra Anemia - stable Indeterminant troponin - attribute to current condition, at this time no indication for cardiac eval Dysphagia - evaluated by speech yesterday and high aspiration risk. Continue NPO for now Pall care consult Transfer to medical floor, do not see any indication for telemetry monitoing as pt is stable. dvt prophy - chagne to lovenox with normal renal function gi prophy - renally dosed famotidine code status - DNAR pt improved however long-term prognosis remains poor, especially in light of NPO right now.
[2020-08-16] MEDS: Arformoterol 15 MCG/2 ML NEB NEB SCH ×2 (07:14→20:02)
[2020-08-16] MEDS: Budesonide 0.5 MG/2 ML NEB NEB SCH ×2 (07:14→20:02)
[2020-08-16] MEDS ORDERED: Electrolyte Replacement Protocol FS PRN (07:15)
[2020-08-16 07:33] LABS: #Eosinphils 0.3 thou/uL (0.0-0.7); #Lymphocytes 1.6 thou/uL (1.20-3.40); #Monocytes 0.6 thou/uL (0.11-0.59); #Neutrophils 4.9 thou/uL (1.40-6.50); %Basophils 0.3 % (0.0-1.0); %Eosinophils 4.6 % (0.0-10.0); %Lymphocytes 21.4 % (21.0-51.0); %Monocytes 8.6 % (0.0-10.0); %Neutrophils 65.1 % (42.0-75.0); Hemoglobin 8.3 g/dL (14.0-18.0); Mean Corpuscular HGB CONC 34.1 g/dL (32.0-36.0); Mean Corpuscular Hemoglobin 31.1 pg (27.0-31.0); Mean Corpuscular Volume 91.3 fL (78.0-98.0); Mean Platelet Volume 8.6 fL (7.4-10.4); Platelet Count 143 thou/uL (130-400); RBC Distribution Width 12.7 % (11.5-14.5); Red Blood Cell (RBC) Count 2.68 mill/uL (4.70-6.10); White Blood Cell (WBC) Count 7.4 thou/uL (4.8-10.8)
[2020-08-16] MEDS: D5 1/2 NS w/20 mEq KCL 1,000 ML IV SCH ×3 (08:21→21:53)
[2020-08-16] MEDS ORDERED: Magnesium 2 GM/50 ML 2 GM in Premix Bag 1 BAG IVPB SCH (08:30)
--- NOTE | 2020-08-16 09:17 | PRG ---
DATE OF SERVICE: 08/16/2020 SUBJECTIVE: Mr. Farr is a 55-year-old male being followed up by the Renal Service for his acute kidney injury and hypernatremia. He was also initially admitted for mental status change. His mentation is now much improved. This was probably secondary to metabolic encephalopathy. No new complaints today. Please note, the patient is nonverbal. OBJECTIVE: VITAL SIGNS: Blood pressure is 134/92, heart rate 90, respiratory rate 26, O2 saturations 99%, and temperature 98.2. GENERAL: The patient is awake, alert, and can follow simple commands. However the patient is nonverbal. HEENT: He has slightly pale conjunctivae. Anicteric sclerae. No neck mass. No carotid bruits. No JVD. CHEST: No deformities. LUNGS: Clear breath sounds. HEART: Normal sinus rhythm. No murmur. No gallops. No rubs. ABDOMEN: Globular. Soft. Nontender. No masses. EXTREMITIES: No edema. No deformities. NEUROLOGIC: Right side is not moving, but left side is moving. The patient is nonverbal. MEDICATIONS: Medications of August 16, 2020, reviewed. LABORATORY DATA: Laboratories of August 16, 2020; white count 7.4 and hemoglobin 8.3. Sodium 143, potassium 2.9, chloride 109, carbon dioxide 24, BUN 33, creatinine 1.12, glucose 113, and calcium 7.8. ASSESSMENT/PLAN: 1. Hypernatremia secondary to free water deficit, much improved. Serum sodium is now normal. Currently, still on D5 half-normal saline. Continue current management. 2. Acute kidney injury-superimposed hemodynamically-mediated renal dysfunction, much improved. 3. Mental status change-secondary to metabolic encephalopathy, resolved. He has near baseline mentation. 4. Due to the improved renal function and serum sodium, we will be signing off. Job ID: [id number] [facility]
[2020-08-16] MEDS: Heparin 5,000 UNITS/ML VIAL SC SCH ×2 (09:31→14:16)
[2020-08-16] MEDS: Famotidine/PF 20 mg/2ml Vial SLOW IVP SCH (09:34)
[2020-08-16] MEDS: levETIRAcetam in NS 500 MG in Premix Bag 1 BAG IVPB SCH ×2 (10:27→21:51)
--- NOTE | 2020-08-16 11:31 | PRG ---
DATE OF SERVICE: 08/16/2020 SUBJECTIVE: Ebenezer Farr remains in the ICU, still very encephalopathic. OBJECTIVE: VITAL SIGNS: Temperature 98, saturations are 100% on room air, blood pressure 134/92, pulse 80, respiratory rate 18. CHEST: No wheezing. No crackles. CARDIAC: Normal S1, S2. No gallops. ABDOMEN: Soft. No masses. LABORATORY DATA: His renal function is much improved, back to his baseline. Blood culture, coag-negative staph. ASSESSMENT: 1. Hypertension. 2. Volume depleted. 3. Encephalopathy. 4. Recent garcia positive pneumonia, since resolved, better. PLAN: Pulmonary tafoya, he can be transferred out of the ICU to an unmonitored bed. His chest x-ray is relatively clear. He is a previous trauma-related head injury patient. Job ID: [id number]
[2020-08-16 12:21] LABS: Potassium 3.1 mmol/L (3.5-5.1)
[2020-08-16] MEDS ORDERED: Potassium Chloride 40 MEQ in Sodium Chloride 0.9% 250 ML 250 ML IVPB SCH (12:30)
[2020-08-16] MEDS ORDERED: Vancomycin 1 GM in Premix Bag 1 BAG IVPB SCH (14:00)
[2020-08-17] MEDS: D5 1/2 NS w/20 mEq KCL 1,000 ML IV SCH ×3 (05:31→12:42)
[2020-08-17 06:29] LABS: Anion Gap 13 mmol/L (10-20); BUN (Urea Nitrogen) 17 mg/dL (8.4-25.7); Calc. Creatinine Clearance 108 mL/min (70-130); Calcium 7.6 mg/dL (7.8-10.44); Carbon Dioxide 22 mmol/L (22-29); Chloride 111 mmol/L (98-107); Glucose 105 mg/dL (70-105); Potassium 3.1 mmol/L (3.5-5.1); Sodium 143 mmol/L (136-145)
[2020-08-17 07:08] LABS: #Basophils 0.1 thou/uL (0.0-0.2); #Eosinphils 0.2 thou/uL (0.0-0.7); #Lymphocytes 1.4 thou/uL (1.20-3.40); #Monocytes 0.5 thou/uL (0.11-0.59); #Neutrophils 3.7 thou/uL (1.40-6.50); %Basophils 1.3 % (0.0-1.0); %Eosinophils 3.4 % (0.0-10.0); %Lymphocytes 23.8 % (21.0-51.0); %Monocytes 8.1 % (0.0-10.0); %Neutrophils 63.3 % (42.0-75.0); Hemoglobin 8.4 g/dL (14.0-18.0); Mean Corpuscular HGB CONC 33.6 g/dL (32.0-36.0); Mean Corpuscular Hemoglobin 30.8 pg (27.0-31.0); Mean Corpuscular Volume 91.5 fL (78.0-98.0); Mean Platelet Volume 8.7 fL (7.4-10.4); Platelet Count 138 thou/uL (130-400); RBC Distribution Width 12.8 % (11.5-14.5); Red Blood Cell (RBC) Count 2.72 mill/uL (4.70-6.10); White Blood Cell (WBC) Count 5.8 thou/uL (4.8-10.8)
[2020-08-17] MEDS ORDERED: Potassium Chloride 40 MEQ in Sodium Chloride 0.9% 250 ML 250 ML IV SCH (08:00)
[2020-08-17] MEDS: Arformoterol 15 MCG/2 ML NEB NEB SCH ×2 (08:02→19:43)
[2020-08-17] MEDS: Budesonide 0.5 MG/2 ML NEB NEB SCH ×2 (08:02→19:41)
[2020-08-17 08:21] LABS: SARS-CoV-2 N Gene Positive; SARS-CoV-2 S Gene Positive; SARS-CoV-2 by NAA DETECTED (NotDetected); SARS-CoV-2 orf1ab Positive
[2020-08-17 08:22] LABS: SARS-CoV-2 MS2 Positive
[2020-08-17] MEDS: Enoxaparin Sodium 40 MG/0.4 ML SYRINGE SC SCH (09:34)
[2020-08-17] MEDS: Famotidine/PF 20 mg/2ml Vial SLOW IVP SCH (09:34)
--- NOTE | 2020-08-17 09:56 | PRG ---
DATE OF SERVICE: 08/17/2020 SUBJECTIVE: Ebenezer Farr was transferred out of the ICU. His garcia PCR test was positive once again. OBJECTIVE: VITAL SIGNS: Temperature 98, pulse 91, sats 100%, respiratory rate 18, blood pressure 120/75. IMAGING STUDIES: Chest x-ray was clear. LABORATORY DATA: Unremarkable. Creatinine is normal. ASSESSMENT: 1. Metabolic encephalopathy and renal failure, improved. 2. Previous head injury. 3. Dysphagia. PLAN: He probably needs repeat swallow test. He probably needs repeat Surgery evaluation. He may very well need PEG again. Pulmonary is going to follow at a distance. Please call if needed. Job ID: [id number]
[2020-08-17] MEDS: levETIRAcetam in NS 500 MG in Premix Bag 1 BAG IVPB SCH ×2 (12:06→23:18)
[2020-08-17] MEDS: Mometasone 200 MCG/Formoterol 5 MCG 120 PUFF INHALER INH SCH (19:45)
[2020-08-17] MEDS: Lacosamide 50 mg Tablet PO SCH (23:17)
[2020-08-18] MEDS: D5 1/2 NS w/20 mEq KCL 1,000 ML IV SCH ×2 (00:38→09:28)
[2020-08-18] MEDS: Mometasone 200 MCG/Formoterol 5 MCG 120 PUFF INHALER INH SCH (07:14)
[2020-08-18] MEDS: Arformoterol 15 MCG/2 ML NEB NEB SCH (07:14)
[2020-08-18] MEDS: Budesonide 0.5 MG/2 ML NEB NEB SCH (07:14)
--- NOTE | 2020-08-18 07:26 | PDOC.HOSPP ---
- Subjective Encounter Date: 08/17/20 Encounter Time: 15:30 Subjective: pt awake but does not follow commands. - Objective Vital Signs & Weight: Vital Signs (12 hours) Temp Pulse Resp BP Pulse Ox 08/17/20 20:00 100 08/17/20 19:51 99.1 F 92 18 110/76 100 08/17/20 19:41 97 Weight Weight 167 lb 12.348 oz Most Recent Monitor Data Heart Rate from ECG 104 NIBP 109/79 NIBP BP-Mean 89 Respiration from ECG 39 SpO2 97 I&O: 08/17/20 08/18/20 08/19/20 06:59 06:59 06:59 Intake Total 2712 1360 Output Total 1316 600 Balance 1396 760 Result Diagrams: 08/17/20 05:47 08/17/20 05:47 Hospitalist ROS - Review of Systems Other: Unable to obtain - Medication Medications: Active Medications Generic Name Dose Route Start Last Admin Trade Name Freq PRN Reason Stop Dose Admin Albuterol/Ipratropium 3 ml 08/14/20 07:21 08/17/20 19:41 Ipratropium/Albuterol Sulfate 3 Ml Neb NEB 3 ml [id number] PRN Administration SOB &/or Wheezing Arformoterol Tartrate 15 mcg 08/14/20 18:30 08/18/20 07:14 Arformoterol 15 Mcg/2 Ml Neb NEB Not Given BID-RT ELYSE Budesonide 0.5 mg 08/14/20 18:30 08/18/20 07:14 Budesonide 0.5 Mg/2 Ml Neb NEB Not Given BID-RT ELYSE Enoxaparin Sodium 40 mg 08/17/20 09:00 08/17/20 09:34 Enoxaparin Sodium 40 Mg/0.4 Ml Syringe SC 40 mg 0900 ELYSE Administration Famotidine 20 mg 08/14/20 09:00 08/17/20 09:34 Famotidine/Pf 20 Mg/2ml Vial SLOW IVP 20 mg Q24H ELYSE Administration Levetiracetam 500 mg/ Device 100 mls @ 200 mls/hr 08/14/20 09:00 08/17/20 23:18 IVPB 100 mls BID ELYSE Administration Potassium Chloride/Dextrose/Sod Cl 1,000 mls @ 100 mls/hr 08/16/20 07:00 08/18/20 00:38 D5 1/2 Ns W/20 Meq Kcl IV Not Given .Q10H ELYSE Lacosamide 200 mg 08/17/20 21:00 08/17/20 23:17 Lacosamide 50 Mg Tablet PO 200 mg BID ELYSE Administration Mometasone Furoate/Formoterol Fumar 2 puff 08/17/20 18:30 08/18/20 07:14 Mometasone 200 Mcg/Formoterol 5 Mcg 120 Puff Inhaler INH Not Given BID-RT ELYSE Sodium Chloride 10 ml 08/14/20 21:00 08/17/20 23:18 Flush - Normal Saline 10 Ml Syringe IVF Not Given Q12HR ELYSE - Exam Heart: negative: RRR, no murmur, no gallops, no rubs, normal peripheral pulses, irregular, diminshed peripheral pulses, murmur present, II/IV, III/IV Respiratory: negative: CTAB, no wheezes, no rales, no ronchi, normal chest expansion, no tachypnea, normal percussion, rales, rhonchi, tachypneic, wheezes Gastrointestinal: negative: soft, non-tender, non-distended, normal bowel sounds, no palpable masses, no hepatomegaly, no splenomegaly, no bruit, no guarding, no rigidity, tender to palpation, distended, diminished bowl sounds, voluntary guarding Extremities: 1+ LE edema Hosp A/P - Plan (1) Hypernatremia Code(s): E87.0 - HYPEROSMOLALITY AND HYPERNATREMIA Status: Acute (2) MINA (acute kidney injury) Code(s): N17.9 - ACUTE KIDNEY FAILURE, UNSPECIFIED Status: Acute (3) Septic shock Code(s): A41.9 - SEPSIS, UNSPECIFIED ORGANISM; R65.21 - SEVERE SEPSIS WITH SEPTIC SHOCK Status: Resolved (4) Encephalopathy acute Code(s): G93.40 - ENCEPHALOPATHY, UNSPECIFIED Status: Acute (5) Seizure Code(s): R56.9 - UNSPECIFIED CONVULSIONS Status: Chronic (6) Anemia Code(s): D64.9 - ANEMIA, UNSPECIFIED Status: Acute Qualifiers: Anemia type: unspecified type Qualified Code(s): D64.9 - Anemia, unspecif ied (7) Elevated troponin Code(s): R77.8 - OTHER SPECIFIED ABNORMALITIES OF PLASMA PROTEINS Status: Acute - Plan Hypernatremia - resolved - Appreciate Nephro consult - change IVF to D5 1/2 NS with potassium Hypokalemia - replace - electrolyte replacement protocol - check magnesium level Concern of septic shock - unlikely with negative cultures - appreciate Pulm consult - d/c antibiotics MINA - resolved Bigeminy - less today Seizure d/o - IV keppra Anemia - stable Indeterminant troponin - attribute to current condition, at this time no indication for cardiac eval Dysphagia - evaluated by speech yesterday and high aspiration risk. Continue NPO for now Pall care consult Transfer to medical floor, do not see any indication for telemetry monitoing as pt is stable. dvt prophy - chagne to lovenox with normal renal function gi prophy - renally dosed famotidine code status - DNAR pt improved however long-term prognosis remains poor, especially in light of NPO right now. 08/17 spoke with patient's GENARO Patrick who is the patient's sister about hospice. Patient's sister agreed on sending patient to inpatient hospice. All the options discussed with the patient's sister. We will start patient on nectar thick fluids and pured diet with risk of aspiration. She is aware of that. Possible discharge in a.m. Patient's daughter at the bedside updated her about patient's condition also. Patient was Covid + July 24 which [facility] will take off precautions patient currently is asymptomatic. Patient's hyponatremia has significantly improved we will continue to monitor.
[2020-08-18 07:30] LABS: Anion Gap 12 mmol/L (10-20); BUN (Urea Nitrogen) 10 mg/dL (8.4-25.7); Calc. Creatinine Clearance 104 mL/min (70-130); Calcium 8.1 mg/dL (7.8-10.44); Carbon Dioxide 22 mmol/L (22-29); Chloride 108 mmol/L (98-107); Glucose 104 mg/dL (70-105); Potassium 3.3 mmol/L (3.5-5.1); Sodium 139 mmol/L (136-145)
[2020-08-18 08:05] LABS: #Eosinphils 0.4 thou/uL (0.0-0.7); #Lymphocytes 1.4 thou/uL (1.20-3.40); #Monocytes 0.5 thou/uL (0.11-0.59); %Basophils 0.4 % (0.0-1.0); %Eosinophils 5.7 % (0.0-10.0); %Lymphocytes 22.5 % (21.0-51.0); %Neutrophils 63.4 % (42.0-75.0); Hemoglobin 8.8 g/dL (14.0-18.0); Mean Corpuscular HGB CONC 33.3 g/dL (32.0-36.0); Mean Corpuscular Hemoglobin 30.8 pg (27.0-31.0); Mean Corpuscular Volume 92.5 fL (78.0-98.0); Mean Platelet Volume 8.2 fL (7.4-10.4); Platelet Count 160 thou/uL (130-400); RBC Distribution Width 13.1 % (11.5-14.5); Red Blood Cell (RBC) Count 2.85 mill/uL (4.70-6.10); White Blood Cell (WBC) Count 6.4 thou/uL (4.8-10.8)
[2020-08-18] MEDS ORDERED: FLUoxetine HCl 20 MG CAP PO SCH (09:00)
[2020-08-18] MEDS ORDERED: Ascorbic Acid 500 mg Chewable Tablet PO SCH (09:00)
[2020-08-18] MEDS ORDERED: Zinc Sulfate 220 MG CAP PO SCH (09:00)
[2020-08-18] MEDS ORDERED: Non-Formulary Item 1 EACH (Zinc [Zinc] 50 MG Tablet) PO SCH (09:00)
[2020-08-18] MEDS ORDERED: Polyethylene Glycol 3350 17 GM Packet PO SCH (09:00)
[2020-08-18] MEDS ORDERED: Aspirin Chewable 81 MG TAB PO SCH (09:00)
[2020-08-18] MEDS ORDERED: Folic Acid 1 MG TAB PO SCH (09:00)
[2020-08-18] MEDS ORDERED: Clopidogrel Bisulfate 75 MG TAB PO SCH (09:00)
[2020-08-18] MEDS ORDERED: Famotidine 20 MG TAB PO SCH (09:00)
[2020-08-18] MEDS ORDERED: Cholecalciferol 1,000 UNITS (25 MCG) TAB PO SCH (09:00)
[2020-08-18] MEDS: Lacosamide 50 mg Tablet PO SCH (09:29)
[2020-08-18] MEDS: Enoxaparin Sodium 40 MG/0.4 ML SYRINGE SC SCH (09:29)
[2020-08-18] MEDS: Famotidine/PF 20 mg/2ml Vial SLOW IVP SCH (09:30)
[2020-08-18] MEDS ORDERED: Potassium Chloride 20 MEQ TAB PO SCH (09:45)
[2020-08-18] MEDS: levETIRAcetam in NS 500 MG in Premix Bag 1 BAG IVPB SCH (10:16)
[2020-08-18 17:33] VITALS: BP 123/81; TEMP 97.9
[2020-08-18] MEDS ORDERED: Rosuvastatin 20 MG TAB PO SCH (21:00)
--- NOTE | 2020-08-19 09:17 | PDOC.DS.DS ---
Provider - Provider Date of Admission: 08/14/20 05:39 Date of Discharge: 08/18/20 Admitting Provider: Lam Cordova DO Primary Care Physician: Odette Freeman MD Course - Hospital Course Hospital Course: Patient is a 55-year-old male who comes from a [facility] with change in mental status. Patient at this time was noted to be in septic shock was started on pressors was in the ICU on antibiotics. He was noted to be hyponatremic and dehydrated. He was started on fluids which improved his hyponatremia. Patient has been slowly aspirating even on pured and nectar thick liquids. At this time family was approached family wanted to make the patient hospice. Patient was transition out of the hospital to hospice. I did speak with the GENARO Patrick who wanted the patient to be discharged to hospice given his overall poor outcome. They do not want a feeding tube on this patient. Resuscitation Status: 08/14/20 11:36 Resuscitation Status Routine Resuscitation Status: DNAR: NO Resuscitation Discussed with: Consent obtained by RN/Dana and is on chart, decided by the patient's Additional comments: sister. - Labs Lab Results: 08/18/20 07:00 08/18/20 07:00 Abnormal Lab Results - Last 48 hrs 08/18/20 07:00: Potassium 3.3 L, Chloride 108 H 08/18/20 07:00: RBC 2.85 L, Hgb 8.8 L, Hct 26.3 L Microbiology - Entire Visit 08/14/20 01:35 Venous blood - Right Arm Blood Culture - Final NO GROWTH IN 5 DAYS 08/14/20 01:35 Venous blood - Left Arm Blood Culture - Final Coagulase Neg Staphylococcus 08/14/20 08:17 Venous blood - Left Hand Blood Culture - Preliminary NO GROWTH AT 48 HOURS 08/14/20 08:17 Venous blood - Right Hand Blood Culture - Preliminary NO GROWTH AT 48 HOURS 08/14/20 01:56 Urine Straight Catheter Urine Culture - Final NO GROWTH AT 36 HOURS - Physical Exam Vitals: Weight Weight 166 lb 11.2 oz Most Recent Monitor Data Heart Rate from ECG 104 NIBP 109/79 NIBP BP-Mean 89 Respiration from ECG 39 SpO2 97 Physical Exam: The patient was seen and examined on the day of discharge. Problem - Discharge Plan Assessment: (1) Hypernatremia Code(s): E87.0 - HYPEROSMOLALITY AND HYPERNATREMIA Status: Acute (2) MINA (acute kidney injury) Code(s): N17.9 - ACUTE KIDNEY FAILURE, UNSPECIFIED Status: Acute (3) Septic shock Code(s): A41.9 - SEPSIS, UNSPECIFIED ORGANISM; R65.21 - SEVERE SEPSIS WITH SEPTIC SHOCK Status: Resolved (4) Encephalopathy acute Code(s): G93.40 - ENCEPHALOPATHY, UNSPECIFIED Status: Acute (5) Seizure Code(s): R56.9 - UNSPECIFIED CONVULSIONS Status: Chronic (6) Anemia Code(s): D64.9 - ANEMIA, UNSPECIFIED Status: Acute Qualifiers: Anemia type: unspecified type Qualified Code(s): D64.9 - Anemia, unspecified (7) Elevated troponin Code(s): R77.8 - OTHER SPECIFIED ABNORMALITIES OF PLASMA PROTEINS Status: Acute Plan - Discharge Medications Home Medications: Medication Instructions Recorded Confirmed Type Ascorbic Acid [Vitamin C] 1,000 mg PO DAILY 07/30/20 07/30/20 History Aspirin 81 mg PO DAILY 07/30/20 07/30/20 History Chlorthalidone 25 mg PO DAILY 07/30/20 07/30/20 History Cholecalciferol (Vitamin D3) 1,000 unit PO DAILY 07/30/20 07/30/20 History [Vitamin D] Clopidogrel Bisulfate [Plavix] 75 mg PO DAILY 07/30/20 07/30/20 History FLUoxetine HCl [Prozac] 20 mg PO DAILY 07/30/20 07/30/20 History Famotidine [Pepcid] 20 mg PO DAILY 07/30/20 07/30/20 History Folic Acid [Folvite] 1 mg PO DAILY 07/30/20 07/30/20 History Lacosamide [Vimpat] 200 mg PO BID 07/30/20 07/30/20 History Lisinopril 5 mg PO DAILY 07/30/20 07/30/20 History Metoprolol Tartrate 25 mg PO BID 07/30/20 07/30/20 History Multivit with Iron,Minerals 1 each PO DAILY 07/30/20 07/30/20 History [Complete Senior] Polyethylene Glycol 3350 [Miralax] 17 gm PO DAILY 07/30/20 07/30/20 History Rosuvastatin [Crestor] 20 mg PO DAILY 07/30/20 07/30/20 History Zinc 50 mg PO DAILY 07/30/20 07/30/20 History Cefdinir [Omnicef] 300 mg PO BID #10 cap 08/03/20 Rx Mometasone/Formoterol 200/5 2 puff INH BID-RT #1 inh 08/03/20 Rx [Dulera 200 Mcg/5 Mcg Inhaler] predniSONE 20 mg PO QAM-WM #5 tab 08/03/20 Rx Allergies: No Known Drug Allergies Allergy (Unknown, Verified 11/29/19 09:07) - Discharge Instructions Discharge Instructions:: Diet: regular, honey thick liquid, extra sauce and gravy, no straws, diet with risks of aspiration. Do care Activity:: Activity as Tolerated Nourishment:: Heart Healthy Diet - Follow up Plan Referrals: Odette Freeman MD [Primary Care Provider] - 7 Days Disposition: [facility] Quality - Care Measures CORE MEASURES:: N/A
--- NOTE | 2020-08-19 16:11 | PQF ---
CLINICAL DOCUMENTATION CLARIFICATION FORM: Dear Dr. Deandra Murillo Date: 08.19.20 Please exercise your independent, professional judgment in responding to the clarification form. Clinical indicators are provided on the bottom of this form for your review. Please check appropriate box(es): [x ] Acute Metabolic Encephalopathy: [ ] Transient Alteration of Awareness [ ] Other diagnosis [ ] Unable to determine For continuity of documentation, please document condition throughout progress notes and discharge summary. Thank You. To be completed by CDI/Coding staff for physician review: CLINICAL INDICATORS - SIGNS / SYMPTOMS / LABS / RESULTS AND LOCATION IN EMR ED: SEPTIC SHOCK; MINA; NSTEMI; UTI 12.5 H&P (Lester): Acute encephalopathy, likely multifactorial in pt w/ prior traumatic brain injury, severe hypernatremia, MINA, and uremia; Indeterminate Troponins *pt is not responsive to questions or commands 2.5 PN (Lester): alerted mental status likely secondary to profound dehydration and volume depletion 12.5 Consult (Kai): Mental status change - currently much improved this morning. This could be secondary to a metabolic encephalopathy 12.9 DC Summary (Lidia): acute encephalopathy RISK FACTORS / RESULTS AND LOCATION IN EMR 12.9 DC Summary (Lidia): *From Halfway *Septic Shock *Hypernatremia *MINA TREATMENTS / RESULTS AND LOCATION IN EMR H&P (Lester): * ICU admission * consult Pulmonary Critical Care and Nephrology *IV fluids w/ D5W; Levophed IV; MAR: * Maxipime IV 12.6 12.7 *D5 NS 12.7-12.9 *Potassium IV 12.7 * Magnesium IV12.7 CDS Signature: Irma Silva Phone #: [phone] 08-19-20 CLINICAL DOCUMENTATION CLARIFICATION FORM: BOB
== END 2020-08-18 16:03 | DRG 871 ==
LOC: ERS 00:42 → ERHOLD 05:39 → CCU 07:50 → T4-A 08-16 18:02
PROVIDERS: ADMIT Family Medicine; ATTEND Family Medicine
PROC: 3E033XZ Introduction of Vasopressor into Peripheral Vein, Percutaneous Approach (ICD-10-PCS; principal; 2020-08-14)
DX: A41.9 Sepsis, unspecified organism (principal); R65.21 Severe sepsis with septic shock; G93.41 Metabolic encephalopathy; U07.1 COVID-19; N17.9 Acute kidney failure, unspecified; E87.0 Hyperosmolality and hypernatremia; Z66 Do not resuscitate; I10 Essential (primary) hypertension; E78.5 Hyperlipidemia, unspecified; D64.9 Anemia, unspecified; R00.8 Other abnormalities of heart beat; E86.0 Dehydration; R13.10 Dysphagia, unspecified; F32.9 Major depressive disorder, single episode, unspecified; R77.8 Other specified abnormalities of plasma proteins; G40.909 Epilepsy, unspecified, not intractable, without status epilepticus; Z79.82 Long term (current) use of aspirin; Z79.02 Long term (current) use of antithrombotics/antiplatelets
CPT/HCPCS: 36415; 36556; 51701; 70450; 71045; 76770; 80048; 80053; 80202; 81003; 81015; 82533; 82553; 83605; 83735; 84443; 84484; 85025; 87040; 87086; 87149; 87635; 93005; 93306; 94640; 96365; 96366; 96367; J0692; J1644; J1650; J1953; J3370; J3475; J3480; J3490; J7050; J7620; J7626; S0028; U0003

== ENCOUNTER 2023-07-29 12:52 | Inpatient (IN) | payer MEDICAID, MEDICARE ==
[2023-07-29] MEDS ORDERED: Cefepime 2 GM VIAL ONE (13:23)
[2023-07-29] MEDS ORDERED: Sodium Chloride 0.9% 100 ML ONE (13:23)
[2023-07-29 13:41] LABS: #Eosinphils 0.1 thou/uL (0.0-0.7); #Monocytes 0.9 thou/uL (0.11-0.59); #Neutrophils 11.6 thou/uL (1.40-6.50); %Basophils 0.1 % (0.0-1.0); %Eosinophils 0.6 % (0.0-10.0); %Lymphocytes 6.2 % (21.0-51.0); %Monocytes 6.4 % (0.0-10.0); %Neutrophils 86.3 % (42.0-75.0); Hematocrit 48.3 % (42.0-52.0); Hemoglobin 16.1 g/dL (14.0-18.0); Mean Corpuscular HGB CONC 33.3 g/dL (32.0-36.0); Mean Corpuscular Hemoglobin 29.4 pg (27.0-31.0); Mean Corpuscular Volume 88.3 fl (78.0-98.0); Mean Platelet Volume 9.6 fL (7.4-10.4); Platelet Count 244 10x3/uL (130-400); RBC Distribution Width 12.5 % (11.5-14.5); Red Blood Cell (RBC) Count 5.47 mill/uL (4.70-6.10); White Blood Cell (WBC) Count 13.5 10x3/uL (4.8-10.8)
[2023-07-29 13:56] LABS: PTT 24.6 sec (22.9-36.1); Prothrombin Time 13.9 sec (12.0-14.7)
[2023-07-29] MEDS ORDERED: Sodium Chloride 0.9% 250 ML 250 ML ONE (14:04)
[2023-07-29] MEDS ORDERED: Azithromycin 500 MG VIAL ONE (14:04)
[2023-07-29 14:10] LABS: ALT (SGPT) 20 U/L (8-55); AST (SGOT) 21 U/L (5-34); Albumin 4.3 g/dL (3.5-5.0); Alkaline Phosphatase 162 U/L (40-110); Anion Gap 21 mmol/L (10-20); BUN (Urea Nitrogen) 10 mg/dL (8.4-25.7); Bilirubin, Total 0.6 mg/dL (0.2-1.2); Calc. Creatinine Clearance 0 mL/min (70-130); Calcium 8.7 mg/dL (7.8-10.44); Carbon Dioxide 18 mmol/L (22-29); Chloride 104 mmol/L (98-107); Estimated GFR 94; Globulin 3.2 g/dL (2.4-3.5); Glucose 90 mg/dL (70-105); Potassium 4.5 mmol/L (3.5-5.1); Protein, Total 7.5 g/dL (6.0-8.3); Sodium 138 mmol/L (136-145)
[2023-07-29 14:13] LABS: Troponin I Less than 0.010 ng/mL (< 0.028)
[2023-07-29] MEDS ORDERED: Acetaminophen 500 MG TAB ONE (14:26)
[2023-07-29 14:39] LABS: SARS-CoV-2 NAA Rapid Test Not Detected (NotDetected)
[2023-07-29] MEDS ORDERED: Ondansetron ODT 4 MG TAB PO PRN (16:36)
[2023-07-29] MEDS ORDERED: Guaifenesin DM 100-10/5 ML UDCUP PO PRN (16:36)
[2023-07-29] MEDS ORDERED: HYDROcodone/Acetaminophen 5/325 mg Tablet PO PRN (16:36)
[2023-07-29] MEDS ORDERED: Acetaminophen 325 MG TAB PO PRN (16:36)
[2023-07-29] MEDS ORDERED: Ondansetron PF 4 MG/2 ML Vial IVP PRN (16:36)
[2023-07-29] MEDS ORDERED: Ipratropium/Albuterol 3 ML NEB NEB PRN (16:46)
[2023-07-29 17:00] LABS: Lactic Acid 1.6 mmol/L (0.5-2.2)
[2023-07-29] MEDS: Lactated Ringer's 1,000 ML IV SCH (18:35)
[2023-07-29] MEDS: Mometasone 200 MCG/Formoterol 5 MCG 120 PUFF INHALER INH SCH (19:51)
[2023-07-29] MEDS: Metoprolol Tartrate 25 MG TAB PO SCH (21:00)
[2023-07-29] MEDS: cefTRIAXone\\ROCEPHIN 1 GM in Sodium Chloride 0.9% 100 ML IVPB SCH (21:00)
[2023-07-29] MEDS: Lacosamide 50 mg Tablet PO SCH (21:00)
[2023-07-29] MEDS: Rosuvastatin 20 MG TAB PO SCH (21:00)
[2023-07-29] MEDS: Heparin 5,000 UNITS/ML VIAL SC SCH (21:14)
[2023-07-30 04:32] LABS: Bacteria/HPF None Seen HPF (None Seen); Bilirubin Negative (Negative); Blood, Urine Negative (Negative); CAUTI Indications for Culture Fever or rigors; Clarity Clear (Clear); Glucose, Urine (Dipstick) Normal (Negative); Ketone, Urine Negative (Negative); Leukocyte Negative Leu/uL (Negative); Nitrite Negative (Negative); Protein, Urine (Dipstick) Negative (Neg-Trace); RBC/HPF 0-3 HPF (0-3); Specific Gravity, Urine 1.009 (1.002-1.036); Squamous Epithelial None Seen HPF (0-3); Urobilinogen Normal mg/dL (Less than 2); WBC/HPF 0-3 HPF (0-3); pH, Urine 7.5 (5.0-9.0)
[2023-07-30 04:41] LABS: Urine Culture Reflex No No
[2023-07-30 04:42] LABS: Strep pneumo Urine Ag NEGATIVE (NEGATIVE)
[2023-07-30] MEDS: Lactated Ringer's 1,000 ML IV SCH ×2 (06:20→18:06)
[2023-07-30] MEDS: Mometasone 200 MCG/Formoterol 5 MCG 120 PUFF INHALER INH SCH ×2 (06:44→19:38)
[2023-07-30 10:48] VITALS: BMI 31.7
[2023-07-30] MEDS: Famotidine 20 MG TAB PO SCH (11:07)
[2023-07-30] MEDS: Clopidogrel Bisulfate 75 MG TAB PO SCH (11:07)
[2023-07-30] MEDS: Ascorbic Acid 500 mg Chewable Tablet PO SCH (11:07)
[2023-07-30] MEDS: Multivitamin W/ Minerals 1 TAB PO SCH (11:07)
[2023-07-30] MEDS: Metoprolol Tartrate 25 MG TAB PO SCH ×2 (11:08→20:29)
[2023-07-30] MEDS: Chlorthalidone 25 MG TAB PO SCH (11:08)
[2023-07-30] MEDS: FLUoxetine HCl 20 MG CAP PO SCH (11:08)
[2023-07-30] MEDS: Zinc Sulfate 220 MG CAP PO SCH (11:08)
[2023-07-30] MEDS: Cholecalciferol 1,000 UNITS (25 MCG) TAB PO SCH (11:08)
[2023-07-30] MEDS: Lisinopril 5 MG TAB PO SCH (11:08)
[2023-07-30] MEDS: Heparin 5,000 UNITS/ML VIAL SC SCH ×2 (11:09→20:43)
[2023-07-30] MEDS: Aspirin Chewable 81 MG TAB PO SCH (11:09)
[2023-07-30] MEDS: Polyethylene Glycol 3350 17 GM Packet PO SCH (14:18)
[2023-07-30] MEDS: Lacosamide 50 mg Tablet PO SCH ×2 (14:18→20:29)
[2023-07-30] MEDS: Azithromycin 500 MG in Sodium Chloride 0.9% 250 ML 250 ML IVPB SCH (17:41)
[2023-07-30] MEDS: Rosuvastatin 20 MG TAB PO SCH (20:29)
[2023-07-30] MEDS: QUEtiapine 25 MG TAB PO SCH (20:29)
[2023-07-30] MEDS: cefTRIAXone\\ROCEPHIN 1 GM in Sodium Chloride 0.9% 100 ML IVPB SCH (20:30)
[2023-07-31] MEDS: Mometasone 200 MCG/Formoterol 5 MCG 120 PUFF INHALER INH SCH ×2 (07:23→17:44)
[2023-07-31 08:10] LABS: #Eosinphils 0.3 thou/uL (0.0-0.7); #Monocytes 0.7 thou/uL (0.11-0.59); %Basophils 0.1 % (0.0-1.0); %Eosinophils 3.8 % (0.0-10.0); %Lymphocytes 17.3 % (21.0-51.0); %Monocytes 9.2 % (0.0-10.0); Hemoglobin 15.4 g/dL (14.0-18.0); Mean Corpuscular HGB CONC 34.2 g/dL (32.0-36.0); Mean Corpuscular Hemoglobin 29.3 pg (27.0-31.0); Mean Corpuscular Volume 85.7 fl (78.0-98.0); Mean Platelet Volume 9.4 fL (7.4-10.4); Platelet Count 289 10x3/uL (130-400); RBC Distribution Width 12.6 % (11.5-14.5); Red Blood Cell (RBC) Count 5.25 mill/uL (4.70-6.10); White Blood Cell (WBC) Count 7.2 10x3/uL (4.8-10.8)
[2023-07-31] MEDS: Multivitamin W/ Minerals 1 TAB PO SCH (09:00)
[2023-07-31] MEDS: Aspirin Chewable 81 MG TAB PO SCH (09:00)
[2023-07-31] MEDS: Polyethylene Glycol 3350 17 GM Packet PO SCH (09:00)
[2023-07-31] MEDS: Lactated Ringer's 1,000 ML IV SCH ×2 (09:00→22:45)
[2023-07-31] MEDS: Heparin 5,000 UNITS/ML VIAL SC SCH ×2 (09:01→20:18)
[2023-07-31] MEDS: Lisinopril 5 MG TAB PO SCH (09:01)
[2023-07-31] MEDS: Lacosamide 50 mg Tablet PO SCH ×2 (09:01→20:18)
[2023-07-31] MEDS: Zinc Sulfate 220 MG CAP PO SCH (09:01)
[2023-07-31] MEDS: Ascorbic Acid 500 mg Chewable Tablet PO SCH (09:01)
[2023-07-31] MEDS: FLUoxetine HCl 20 MG CAP PO SCH (09:01)
[2023-07-31] MEDS: Chlorthalidone 25 MG TAB PO SCH (09:01)
[2023-07-31] MEDS: Cholecalciferol 1,000 UNITS (25 MCG) TAB PO SCH (09:01)
[2023-07-31] MEDS: Famotidine 20 MG TAB PO SCH (09:01)
[2023-07-31] MEDS: Clopidogrel Bisulfate 75 MG TAB PO SCH (09:01)
[2023-07-31] MEDS: Metoprolol Tartrate 25 MG TAB PO SCH ×2 (09:02→20:17)
[2023-07-31] MEDS ORDERED: Azithromycin 500 MG VIAL ONE (14:53)
[2023-07-31] MEDS: Azithromycin 500 MG in Sodium Chloride 0.9% 250 ML 250 ML IVPB SCH (14:55)
[2023-07-31] MEDS: Rosuvastatin 20 MG TAB PO SCH (20:18)
[2023-07-31] MEDS: QUEtiapine 25 MG TAB PO SCH (20:18)
[2023-07-31] MEDS: cefTRIAXone\\ROCEPHIN 1 GM in Sodium Chloride 0.9% 100 ML IVPB SCH (20:18)
[2023-08-01] MEDS: Mometasone 200 MCG/Formoterol 5 MCG 120 PUFF INHALER INH SCH (07:02)
[2023-08-01] MEDS ORDERED: Azithromycin 250 MG TAB PO SCH (09:00)
[2023-08-01] MEDS: Lacosamide 50 mg Tablet PO SCH (09:05)
[2023-08-01] MEDS: Chlorthalidone 25 MG TAB PO SCH (09:06)
[2023-08-01] MEDS: Metoprolol Tartrate 25 MG TAB PO SCH (09:06)
[2023-08-01] MEDS: FLUoxetine HCl 20 MG CAP PO SCH (09:06)
[2023-08-01] MEDS: Polyethylene Glycol 3350 17 GM Packet PO SCH (09:06)
[2023-08-01] MEDS: Ascorbic Acid 500 mg Chewable Tablet PO SCH (09:06)
[2023-08-01] MEDS: Famotidine 20 MG TAB PO SCH (09:07)
[2023-08-01] MEDS: Zinc Sulfate 220 MG CAP PO SCH (09:07)
[2023-08-01] MEDS: Lisinopril 5 MG TAB PO SCH (09:08)
[2023-08-01] MEDS: Aspirin Chewable 81 MG TAB PO SCH (09:09)
[2023-08-01] MEDS: Heparin 5,000 UNITS/ML VIAL SC SCH (09:09)
[2023-08-01] MEDS: Multivitamin W/ Minerals 1 TAB PO SCH (09:09)
[2023-08-01] MEDS: Cholecalciferol 1,000 UNITS (25 MCG) TAB PO SCH (09:09)
[2023-08-01] MEDS: Clopidogrel Bisulfate 75 MG TAB PO SCH (09:09)
[2023-08-01 12:09] VITALS: BP 125/86; TEMP 98.1
== END 2023-08-01 13:34 | DRG 871 ==
LOC: ERS 12:52 → 2SE 15:53 → OBSVTOIN 07-30 15:57
PROVIDERS: ADMIT Hospitalist; ATTEND Nurse Practitioner Acute Care
DX: A41.9 Sepsis, unspecified organism (principal); J12.9 Viral pneumonia, unspecified; E87.20 Acidosis, unspecified; F23 Brief psychotic disorder; F01.54 Vascular dementia, unspecified severity, with anxiety; I69.351 Hemiplegia and hemiparesis following cerebral infarction affecting right dominant side; F01.511 Vascular dementia, unspecified severity, with agitation; Z66 Do not resuscitate; I10 Essential (primary) hypertension; E78.5 Hyperlipidemia, unspecified; D64.9 Anemia, unspecified; F32.A Depression, unspecified; Z99.3 Dependence on wheelchair; Z79.82 Long term (current) use of aspirin; Z79.899 Other long term (current) drug therapy; Z87.820 Personal history of traumatic brain injury; Z11.52 Encounter for screening for COVID-19; Z86.69 Personal history of other diseases of the nervous system and sense organs; Z99.81 Dependence on supplemental oxygen
CPT/HCPCS: 36415; 71045; 71046; 71250; 74230; 80053; 81001; 83605; 84484; 85025; 85610; 85730; 87040; 87449; 93005; 96365; 96367; 96372; 96375; G0378; J0456; J0692; J0696; J1644; J3490; J7050; J7120